=== PATIENT | male | born 1945 | race Caucasian/White ===

== ENCOUNTER 2016-12-24 22:09 | Emergency (ER) | payer MEDICARE ==
[2016-12-24] MEDS ORDERED: ONDANSETRON 4 MG/2 ML VIAL IVP STA (22:53)
--- NOTE | 2016-12-24 23:26 | ED ---
Nausea/Vomiting/Diarrhea HPI - General Chief complaint: Nausea/Vomiting/Diarrhea Stated complaint: Flu Time Seen by Provider: 12/24/16 22:53 Source: patient Mode of arrival: ambulatory Limitations: no limitations - History of Present Illness Initial comments: Patient 71-year-old man with vomiting going on for about 30 hours, he has had or 5 episodes of vomiting the last had some coffee-ground material. Patient also had loose bowel movement he is describing as diarrhea, without seeing any blood or tarry stools. MD complaint: nausea, vomiting, diarrhea Onset/Timin -: hour(s) Description of Vomiting: watery Description of Diarrhea: water Associated Abdominal Pain: No Improves with: none Worsens with: none Associated Symptoms: denies other symptoms - Related Data Home Medications Medication Instructions Recorded Confirmed Aspirin 325 mg PO QID PRN 12/24/16 12/24/16 Previous Rx's Medication Instructions Recorded Ondansetron Odt [Zofran ODT] 4 mg PO Q8HR PRN #10 tab 12/25/16 Allergies Allergy/AdvReac Type Severity Reaction Status Date / Time No Known Allergies Allergy Verified 12/24/16 22:50 Review of Systems ROS Statement: Those systems with pertinent positive or pertinent negative responses have been documented in the HPI. ROS Other: All systems not noted in ROS Statement are negative. Constitutional: Denies: fever, chills Respiratory: Denies: cough, dyspnea Cardiovascular: Denies: chest pain, palpitations Gastrointestinal: Reports: nausea, vomiting, diarrhea. Denies: abdominal pain, hematemesis, melena, hematochezia Genitourinary: Denies: dysuria, hematuria Musculoskeletal: Denies: back pain Skin: Denies: rash Neurological: Denies: headache, weakness, numbness Past Medical History Past Medical History: Hypertension History of Any Multi-Drug Resistant Organisms: None Reported Past Surgical History: No Surgical Hx Reported Past Psychological History: No Psychological Hx Reported Smoking Status: Never smoker Past Alcohol Use History: None Reported Past Drug Use History: None Reported General Exam Limitations: no limitations General appearance: alert, in no apparent distress Head exam: Present: atraumatic, normocephalic Eye exam: Present: normal appearance. Absent: scleral icterus, conjunctival injection ENT exam: Present: normal oropharynx Respiratory exam: Present: normal lung sounds bilaterally. Absent: respiratory distress, wheezes, rales, rhonchi, stridor Cardiovascular Exam: Present: regular rate, normal rhythm, normal heart sounds. Absent: systolic murmur, diastolic murmur, rubs, gallop GI/Abdominal exam: Present: soft, normal bowel sounds. Absent: distended, tenderness, guarding, rebound, rigid, mass, pulsatile mass, hernia Extremities exam: Present: normal inspection, normal capillary refill. Absent: pedal edema, calf tenderness Back exam: Absent: CVA tenderness (R), CVA tenderness (L) Neurological exam: Present: alert Skin exam: Present: warm, dry, intact, normal color. Absent: rash, cyanosis, diaphoretic, erythema, petechiae, pallor, mottled Course Vital Signs 12/24/16 12/25/16 22:30 00:24 Temperature 98.6 F 98.9 F Pulse Rate 110 H 88 Respiratory 18 16 Rate Blood Pressure 138/96 126/75 O2 Sat by Pulse 95 99 Oximetry Medical Decision Making - Lab Data Result diagrams: 12/24/16 23:11 12/24/16 23:11 Lab Results 12/24/16 12/24/16 12/24/16 Range/Units 23:11 23:11 23:11 WBC 9.0 (3.8-10.6) k/uL RBC 4.57 (4.30-5.90) m/uL Hgb 14.1 (13.0-17.5) gm/dL Hct 42.8 (39.0-53.0) % MCV 93.6 (80.0-100.0) fL MCH 30.8 (25.0-35.0) pg MCHC 32.9 (31.0-37.0) g/dL RDW 12.2 (11.5-15.5) % Plt Count 177 (150-450) k/uL Neutrophils % 86 % Lymphocytes % 6 % Monocytes % 6 % Eosinophils % 0 % Basophils % 0 % Neutrophils # 7.7 (1.3-7.7) k/uL Lymphocytes # 0.5 L (1.0-4.8) k/uL Monocytes # 0.5 (0-1.0) k/uL Eosinophils # 0.0 (0-0.7) k/uL Basophils # 0.0 (0-0.2) k/uL Sodium 139 (137-145) mmol/L Potassium 4.0 (3.5-5.1) mmol/L Chloride 101 (98-107) mmol/L Carbon Dioxide 26 (22-30) mmol/L Anion Gap 12 mmol/L BUN 26 H (9-20) mg/dL Creatinine 0.90 (0.66-1.25) mg/dL Est GFR (MDRD) Af Amer >60 (>60 ml/min/1.73 sqM) Est GFR (MDRD) Non-Af >60 (>60 ml/min/1.73 sqM) Glucose 123 H (74-99) mg/dL Plasma Lactic Acid [place] 1.1 (0.7-2.0) mmol/L Calcium 8.8 (8.4-10.2) mg/dL Magnesium 1.7 (1.6-2.3) mg/dL Total Bilirubin 0.6 (0.2-1.3) mg/dL AST 24 (17-59) U/L ALT 26 (21-72) U/L Alkaline Phosphatase 69 (38-126) U/L Troponin I (0.000-0.034) ng/mL Total Protein 6.9 (6.3-8.2) g/dL Albumin 3.8 (3.5-5.0) g/dL Amylase 75 (30-110) U/L Lipase 103 (23-300) U/L Urine Color Urine Appearance (Clear) Urine pH (5.0-8.0) Ur Specific [place] (1.001-1.035) Urine Protein (Negative) Urine Glucose (UA) (Negative) Urine Ketones (Negative) Urine Blood (Negative) Urine Nitrate (Negative) Urine Bilirubin (Negative) Urine Urobilinogen (<2.0) mg/dL Ur Leukocyte Esterase (Negative) Urine RBC (0-5) /hpf Urine WBC (0-5) /hpf Ur Squamous Epith Cells (0-4) /hpf Urine Mucus (None) /hpf 12/24/16 12/24/16 Range/Units 23:11 23:27 WBC (3.8-10.6) k/uL RBC (4.30-5.90) m/uL Hgb (13.0-17.5) gm/dL Hct (39.0-53.0) % MCV (80.0-100.0) fL MCH (25.0-35.0) pg MCHC (31.0-37.0) g/dL RDW (11.5-15.5) % Plt Count (150-450) k/uL Neutrophils % % Lymphocytes % % Monocytes % % Eosinophils % % Basophils % % Neutrophils # (1.3-7.7) k/uL Lymphocytes # (1.0-4.8) k/uL Monocytes # (0-1.0) k/uL Eosinophils # (0-0.7) k/uL Basophils # (0-0.2) k/uL Sodium (137-145) mmol/L Potassium (3.5-5.1) mmol/L Chloride (98-107) mmol/L Carbon Dioxide (22-30) mmol/L Anion Gap mmol/L BUN (9-20) mg/dL Creatinine (0.66-1.25) mg/dL Est GFR (MDRD) Af Amer (>60 ml/min/1.73 sqM) Est GFR (MDRD) Non-Af (>60 ml/min/1.73 sqM) Glucose (74-99) mg/dL Plasma Lactic Acid [place] (0.7-2.0) mmol/L Calcium (8.4-10.2) mg/dL Magnesium (1.6-2.3) mg/dL Total Bilirubin (0.2-1.3) mg/dL AST (17-59) U/L ALT (21-72) U/L Alkaline Phosphatase (38-126) U/L Troponin I <0.012 (0.000-0.034) ng/mL Total Protein (6.3-8.2) g/dL Albumin (3.5-5.0) g/dL Amylase (30-110) U/L Lipase (23-300) U/L Urine Color Yellow Urine Appearance Clear (Clear) Urine pH 5.5 (5.0-8.0) Ur Specific [place] 1.026 (1.001-1.035) Urine Protein 1+ H (Negative) Urine Glucose (UA) Negative (Negative) Urine Ketones Negative (Negative) Urine Blood Negative (Negative) Urine Nitrate Negative (Negative) Urine Bilirubin Negative (Negative) Urine Urobilinogen <2.0 (<2.0) mg/dL Ur Leukocyte Esterase Negative (Negative) Urine RBC 1 (0-5) /hpf Urine WBC 1 (0-5) /hpf Ur Squamous Epith Cells <1 (0-4) /hpf Urine Mucus Few H (None) /hpf Disposition Clinical Impression: Gastroenteritis Disposition: HOME SELF-CARE Condition: Good Instructions: Gastroenteritis (ED) Prescriptions: Ondansetron Odt [Zofran ODT] 4 mg PO Q8HR PRN #10 tab PRN Reason: Nausea Referrals: Anna Spear MD [Primary Care Provider] - 1-2 days
[2016-12-24 23:33] LABS: Basophils % (A) 0 %; CHCM 33.2; Eosinophils % (A) 0 %; HCT 42.8 % (39.0-53.0); HDW 2.31; HGB 14.1 gm/dL (13.0-17.5); Luc # (Auto) 0.17; Luc % (Auto) 2; Lymphocytes # (A) 0.5 k/uL (1.0-4.8); Lymphocytes % (A) 6 %; MCH 30.8 pg (25.0-35.0); MCHC 32.9 g/dL (31.0-37.0); MCV 93.6 fL (80.0-100.0); Mean Platelet Volume 8.6; Monocytes # (A) 0.5 k/uL (0-1.0); Monocytes % (A) 6 %; Neutrophils # (A) 7.7 k/uL (1.3-7.7); Neutrophils % (A) 86 %; RBC 4.57 m/uL (4.30-5.90); RDW 12.2 % (11.5-15.5); WBC (Perox) 8.39
[2016-12-24 23:41] LABS: ALT 26 U/L (21-72); AST 24 U/L (17-59); Alkaline Phosphatase 69 U/L (38-126); Amylase 75 U/L (30-110); Anion Gap 12 mmol/L; Blood Urea Nitrogen 26 mg/dL (9-20); Calcium 8.8 mg/dL (8.4-10.2); Carbon Dioxide 26 mmol/L (22-30); Chloride 101 mmol/L (98-107); Glucose 123 mg/dL (74-99); Magnesium 1.7 mg/dL (1.6-2.3); Non-African American GFR(MDRD) >60 (>60 ml/min/1.73 sqM); Sodium 139 mmol/L (137-145); Total Bilirubin 0.6 mg/dL (0.2-1.3); Total Protein 6.9 g/dL (6.3-8.2)
[2016-12-24 23:49] LABS: Appearance,Urine Clear (Clear); Bilirubin,Urine Negative (Negative); Glucose,Urine (UA) Negative (Negative); Ketones,Urine Negative (Negative); Leukocyte Esterase,Urine Negative (Negative); Mucus,Urine Few /hpf; Nitrite,Urine Negative (Negative); PH, Urine 5.5 (5.0-8.0); Particle Count 5420; Protein,Urine 1+ (Negative); RBC,Urine 1 /hpf (0-5); Specific Gravity,Urine 1.026 (1.001-1.035); Squamous Epithelial Cell,Urine <1 /hpf (0-4); UA Billing (MACRO vs. MICRO) MICRO; Urobilinogen,Urine <2.0 mg/dL (<2.0); WBC,Urine 1 /hpf (0-5)
[2016-12-25 00:35] VITALS: BP 126/75; PULSE 88; RESP 16; TEMP 98.9
== END 2016-12-25 00:35 | disposition home or self-care (01) ==
LOC: EC 22:09
DX: K52.9 Noninfective gastroenteritis and colitis, unspecified (principal)
CPT/HCPCS: 99284; 96374; 36415; 80053; 82150; 83605; 83690; 83735; 84484; 85025; 81001; J2405

== ENCOUNTER 2017-01-12 17:45 | Emergency (ER) | payer MEDICARE ==
[2017-01-12 18:49] VITALS: RESP 18
[2017-01-12] MEDS ORDERED: MECLIZINE 12.5 MG TAB PO STA (18:57)
[2017-01-12] MEDS ORDERED: ONDANSETRON 4 MG/2 ML VIAL IVP STA (18:57)
[2017-01-12] MEDS ORDERED: SODIUM CHLORIDE 0.9% 1,000 ML IV STA (18:57)
[2017-01-12 19:12] LABS: Basophils % (A) 0 %; CH 30.2; CHCM 32.2; Eosinophils # (A) 0.1 k/uL (0-0.7); Eosinophils % (A) 1 %; HCT 45.8 % (39.0-53.0); HDW 2.44; HGB 14.4 gm/dL (13.0-17.5); Luc # (Auto) 0.25; Luc % (Auto) 3; Lymphocytes # (A) 1.4 k/uL (1.0-4.8); Lymphocytes % (A) 18 %; MCH 29.5 pg (25.0-35.0); MCHC 31.4 g/dL (31.0-37.0); Mean Platelet Volume 8.3; Monocytes # (A) 0.4 k/uL (0-1.0); Monocytes % (A) 5 %; Neutrophils # (A) 5.7 k/uL (1.3-7.7); Neutrophils % (A) 73 %; RBC 4.87 m/uL (4.30-5.90); RDW 12.1 % (11.5-15.5); WBC 7.8 k/uL (3.8-10.6); WBC (Perox) 8.05
[2017-01-12 19:14] LABS: Appearance,Urine Clear (Clear); Bilirubin,Urine Negative (Negative); Glucose,Urine (UA) Negative (Negative); Ketones,Urine Negative (Negative); Leukocyte Esterase,Urine Negative (Negative); Nitrite,Urine Negative (Negative); PH, Urine 6.5 (5.0-8.0); Protein,Urine Negative (Negative); Specific Gravity,Urine 1.002 (1.001-1.035); UA Billing (MACRO vs. MICRO) CHEM; Urobilinogen,Urine <2.0 mg/dL (<2.0)
[2017-01-12 19:29] LABS: ALT 41 U/L (21-72); AST 34 U/L (17-59); Alkaline Phosphatase 86 U/L (38-126); Anion Gap 12 mmol/L; Blood Urea Nitrogen 17 mg/dL (9-20); Calcium 9.7 mg/dL (8.4-10.2); Carbon Dioxide 27 mmol/L (22-30); Chloride 105 mmol/L (98-107); Glucose 97 mg/dL (74-99); Non-African American GFR(MDRD) >60 (>60 ml/min/1.73 sqM); Potassium 4.2 mmol/L (3.5-5.1); Sodium 144 mmol/L (137-145); Total Bilirubin 0.6 mg/dL (0.2-1.3); Total Protein 7.8 g/dL (6.3-8.2)
--- NOTE | 2017-01-12 19:47 | XR ---
EXAMINATION TYPE: XR chest 2V DATE OF EXAM: 01/12/2017 7:39 PM COMPARISON: NONE HISTORY: Dizziness per patient, possible pneumonia? TECHNIQUE: Frontal and lateral views of the chest are obtained. FINDINGS: There is chronic parenchymal change without suspicious focal air space opacity, pleural ef fusion, or pneumothorax seen bilaterally. The cardiac silhouette size is upper limits of normal. T he osseous structures are demineralized. IMPRESSION: Chronic parenchymal changes without suspicious acute pulmonary process.
--- NOTE | 2017-01-12 21:29 | CT ---
EXAMINATION TYPE: CT brain wo con DATE OF EXAM: 01/12/2017 9:15 PM HISTORY: Dizziness and weakness. CT DLP: 1177.00 mGycm. Automated Exposure Control for Dose Reduction was Utilized. TECHNIQUE: CT scan of the head is performed without contrast. COMPARISON: None. FINDINGS: There is no acute intracranial hemorrhage or midline shift identified. There is diffuse v entricular and sulcal prominence consistent with diffuse age-related cerebral atrophy. Left globe pro sthesis or cortical buckle is noted. Right globe is intact. Visualized paranasal sinuses are clear. IMPRESSION: No acute intracranial hemorrhage or midline shift. There is mild to moderate diffuse ag e-related cerebral atrophy noted.
--- NOTE | 2017-01-12 22:28 | ED ---
Dizziness HPI - General Chief Complaint: Dizziness Stated Complaint: DIZZINESS Time Seen by Provider: 01/12/17 18:20 Source: patient Mode of arrival: wheelchair Limitations: no limitations - History of Present Illness Initial Comments: Episode of dizziness about 3 [place], he was lightheaded room was spinning and he felt palpitation he denies any chest pain no shortness of breath no frequency urgency dysuria no blurred vision no weakness of upper or lower extremities and now right now her symptoms have resolved totally - Related Data Home Medications Medication Instructions Recorded Confirmed Aspirin EC [Ecotrin Low Dose] 81 - 162 mg PO DAILY PRN 01/12/17 01/12/17 Atenolol 25 mg PO DAILY 01/12/17 01/12/17 Edta(Calcium Disodium Ethylene 1 tab PO BID 01/12/17 01/12/17 Diamine Tetra-Acetic Acid Dihydrate) Irbesartan [Avapro] 150 mg PO DAILY 01/12/17 01/12/17 Previous Rx's Medication Instructions Recorded Meclizine [Antivert] 12.5 mg PO QID #15 tablet 01/12/17 Allergies Allergy/AdvReac Type Severity Reaction Status Date / Time No Known Allergies Allergy Verified 01/12/17 18:37 Review of Systems ROS Statement: Those systems with pertinent positive or pertinent negative responses have been documented in the HPI. ROS Other: All systems not noted in ROS Statement are negative. Past Medical History Past Medical History: Hypertension History of Any Multi-Drug Resistant Organisms: None Reported Past Surgical History: No Surgical Hx Reported Past Psychological History: No Psychological Hx Reported Smoking Status: Never smoker Past Alcohol Use History: None Reported Past Drug Use History: None Reported General Exam - General Exam Comments Initial Comments: General: The patient is awake and alert, in no distress, and does not appear acutely ill. Skin: Skin is warm and dry and no rashes or lesions are noted. Eye: Pupils are equal, round and reactive to light, extra-ocular movements are intact; there is normal conjunctiva bilaterally. Ears, nose, mouth and throat: There are moist mucous membranes and no oral lesions. Neck: The neck is supple, there is no tenderness or JVD. Cardiovascular: There is a regular rate and rhythm. No murmur, rub or gallop is appreciated. Respiratory: To auscultation bilateral, no wheezing no rhonchi no distress respiratory portillo noticed Gastrointestinal: Soft, non-distended, non-tender abdomen without masses or organomegaly noted. There is no rebound or guarding present. Bowel sounds are unremarkable. Back: There is no tenderness to palpation in the midline. There is no obvious deformity. Musculoskeletal: Noticed some dependent edema around the ankles, no signs of any DVT no signs of any cellulitis or bruising noticed Neurological: CN II-XII intact, Cranial nerves III through XII are intact. There are no obvious motor or sensory deficits. Coordination appears grossly intact. Speech is normal. Psychiatric: Cooperative, appropriate mood & affect, normal judgment. Limitations: no limitations Course Vital Signs 01/12/17 01/12/17 01/12/17 18:05 18:48 19:45 Temperature 98.0 F Pulse Rate 98 94 86 Respiratory 16 18 18 Rate Blood Pressure 158/68 143/67 133/60 O2 Sat by Pulse 98 100 98 Oximetry 01/12/17 01/12/17 20:45 21:53 Temperature 99.7 F H Pulse Rate 90 99 Respiratory 18 18 Rate Blood Pressure 135/63 135/64 O2 Sat by Pulse 99 99 Oximetry General reassessed a few times during his stay in the ER, his CBC, CMP, UA, EKG , head CT, chest x-ray are absolutely normal in he is feeling great, he was reassured and advised to follow-up with Dr. Durand will return to the ER if symptoms get worse EKG Findings - EKG Comments: EKG Findings:: Normal sinus rhythm ventricular rate is 100 MO interval is 122 QRS duration is 88 QT/QTc is 366/464 review of this EKG does not reveal any ST elevation or ST depression Medical Decision Making - Lab Data Result diagrams: 01/12/17 19:04 01/12/17 19:04 Lab Results 01/12/17 01/12/17 01/12/17 Range/Units 19:04 19:04 19:04 WBC 7.8 (3.8-10.6) k/uL RBC 4.87 (4.30-5.90) m/uL Hgb 14.4 (13.0-17.5) gm/dL Hct 45.8 (39.0-53.0) % MCV 94.0 (80.0-100.0) fL MCH 29.5 (25.0-35.0) pg MCHC 31.4 (31.0-37.0) g/dL RDW 12.1 (11.5-15.5) % Plt Count 228 (150-450) k/uL Neutrophils % 73 % Lymphocytes % 18 % Monocytes % 5 % Eosinophils % 1 % Basophils % 0 % Neutrophils # 5.7 (1.3-7.7) k/uL Lymphocytes # 1.4 (1.0-4.8) k/uL Monocytes # 0.4 (0-1.0) k/uL Eosinophils # 0.1 (0-0.7) k/uL Basophils # 0.0 (0-0.2) k/uL Sodium 144 (137-145) mmol/L Potassium 4.2 (3.5-5.1) mmol/L Chloride 105 (98-107) mmol/L Carbon Dioxide 27 (22-30) mmol/L Anion Gap 12 mmol/L BUN 17 (9-20) mg/dL Creatinine 0.93 (0.66-1.25) mg/dL Est GFR (MDRD) Af Amer >60 (>60 ml/min/1.73 sqM) Est GFR (MDRD) Non-Af >60 (>60 ml/min/1.73 sqM) Glucose 97 (74-99) mg/dL Calcium 9.7 (8.4-10.2) mg/dL Total Bilirubin 0.6 (0.2-1.3) mg/dL AST 34 (17-59) U/L ALT 41 (21-72) U/L Alkaline Phosphatase 86 (38-126) U/L Troponin I <0.012 (0.000-0.034) ng/mL Total Protein 7.8 (6.3-8.2) g/dL Albumin 4.4 (3.5-5.0) g/dL Urine Color Urine Appearance (Clear) Urine pH (5.0-8.0) Ur Specific [place] (1.001-1.035) Urine Protein (Negative) Urine Glucose (UA) (Negative) Urine Ketones (Negative) Urine Blood (Negative) Urine Nitrate (Negative) Urine Bilirubin (Negative) Urine Urobilinogen (<2.0) mg/dL Ur Leukocyte Esterase (Negative) 01/12/17 Range/Units 19:04 WBC (3.8-10.6) k/uL RBC (4.30-5.90) m/uL Hgb (13.0-17.5) gm/dL Hct (39.0-53.0) % MCV (80.0-100.0) fL MCH (25.0-35.0) pg MCHC (31.0-37.0) g/dL RDW (11.5-15.5) % Plt Count (150-450) k/uL Neutrophils % % Lymphocytes % % Monocytes % % Eosinophils % % Basophils % % Neutrophils # (1.3-7.7) k/uL Lymphocytes # (1.0-4.8) k/uL Monocytes # (0-1.0) k/uL Eosinophils # (0-0.7) k/uL Basophils # (0-0.2) k/uL Sodium (137-145) mmol/L Potassium (3.5-5.1) mmol/L Chloride (98-107) mmol/L Carbon Dioxide (22-30) mmol/L Anion Gap mmol/L BUN (9-20) mg/dL Creatinine (0.66-1.25) mg/dL Est GFR (MDRD) Af Amer (>60 ml/min/1.73 sqM) Est GFR (MDRD) Non-Af (>60 ml/min/1.73 sqM) Glucose (74-99) mg/dL Calcium (8.4-10.2) mg/dL Total Bilirubin (0.2-1.3) mg/dL AST (17-59) U/L ALT (21-72) U/L Alkaline Phosphatase (38-126) U/L Troponin I (0.000-0.034) ng/mL Total Protein (6.3-8.2) g/dL Albumin (3.5-5.0) g/dL Urine Color Colorless Urine Appearance Clear (Clear) Urine pH 6.5 (5.0-8.0) Ur Specific [place] 1.002 (1.001-1.035) Urine Protein Negative (Negative) Urine Glucose (UA) Negative (Negative) Urine Ketones Negative (Negative) Urine Blood Negative (Negative) Urine Nitrate Negative (Negative) Urine Bilirubin Negative (Negative) Urine Urobilinogen <2.0 (<2.0) mg/dL Ur Leukocyte Esterase Negative (Negative) Disposition Clinical Impression: Dizziness, Light headed Disposition: HOME SELF-CARE Condition: Good Instructions: Dizziness (ED) Prescriptions: Meclizine [Antivert] 12.5 mg PO QID #15 tablet
[2017-01-12 22:50] VITALS: BP 133/63; PULSE 84
[2017-01-12 22:52] VITALS: TEMP 98
== END 2017-01-12 22:51 | disposition home or self-care (01) ==
LOC: EC 17:45
DX: R42 Dizziness and giddiness (principal); R60.0 Localized edema; R00.2 Palpitations; I10 Essential (primary) hypertension; Z79.899 Other long term (current) drug therapy
CPT/HCPCS: 36415; 70450; 71020; 80053; 81003; 84484; 85025; 93005; 99284

== ENCOUNTER 2017-08-02 20:39 | Emergency (ER) | payer MEDICARE ==
[2017-08-02] MEDS ORDERED: SODIUM CHLORIDE 0.9% 500 ML IV STA (21:34)
[2017-08-02] MEDS ORDERED: SODIUM CHLORIDE 0.9% 1,000 ML IV STA (21:34)
[2017-08-02] MEDS ORDERED: MECLIZINE 12.5 MG TAB PO STA (21:34)
[2017-08-02 22:02] LABS: Basophils % (A) 0 %; CH 30.5; CHCM 31.5; Eosinophils # (A) 0.1 k/uL (0-0.7); Eosinophils % (A) 1 %; HCT 46.1 % (39.0-53.0); HDW 2.15; HGB 15.4 gm/dL (13.0-17.5); Luc # (Auto) 0.24; Luc % (Auto) 3; Lymphocytes # (A) 1.9 k/uL (1.0-4.8); Lymphocytes % (A) 21 %; MCH 32.3 pg (25.0-35.0); MCHC 33.3 g/dL (31.0-37.0); MCV 97.2 fL (80.0-100.0); Mean Platelet Volume 8.1; Monocytes # (A) 0.6 k/uL (0-1.0); Monocytes % (A) 6 %; Neutrophils # (A) 6.5 k/uL (1.3-7.7); Neutrophils % (A) 69 %; RBC 4.75 m/uL (4.30-5.90); RDW 11.9 % (11.5-15.5); WBC 9.4 k/uL (3.8-10.6); WBC (Perox) 9.17
[2017-08-02 22:11] LABS: ALT 34 U/L (21-72); AST 18 U/L (17-59); Alkaline Phosphatase 82 U/L (38-126); Anion Gap 9 mmol/L; Blood Urea Nitrogen 19 mg/dL (9-20); Calcium 9.7 mg/dL (8.4-10.2); Carbon Dioxide 27 mmol/L (22-30); Chloride 104 mmol/L (98-107); Glucose 95 mg/dL (74-99); INR 1.1 (<1.2); Non-African American GFR(MDRD) >60 (>60 ml/min/1.73 sqM); Potassium 4.7 mmol/L (3.5-5.1); Prothrombin Time 11.3 sec (9.0-12.0); Sodium 140 mmol/L (137-145); Total Bilirubin 0.3 mg/dL (0.2-1.3); Total Protein 6.9 g/dL (6.3-8.2)
[2017-08-02 22:54] LABS: Appearance,Urine Clear (Clear); Bilirubin,Urine Negative (Negative); Glucose,Urine (UA) Negative (Negative); Ketones,Urine Negative (Negative); Leukocyte Esterase,Urine Negative (Negative); Nitrite,Urine Negative (Negative); Protein,Urine Negative (Negative); Specific Gravity,Urine 1.006 (1.001-1.035); UA Billing (MACRO vs. MICRO) CHEM; Urobilinogen,Urine <2.0 mg/dL (<2.0)
--- NOTE | 2017-08-02 23:19 | CT ---
EXAM: CT Head Without Intravenous Contrast CLINICAL HISTORY: Reason: Pain TECHNIQUE: Axial computed tomography images of the head/brain without intravenous contrast. CTDI is 57.40 mGy and DLP is 1080.50 mGy-cm. This CT exam was performed using one or more of the following dose reduction techniques: automated exposure control, adjustment of the mA and/or kV according to patient size, and/or use of iterative reconstruction technique. COMPARISON: 01/12/17 CT FINDINGS: Brain: No ICH, mass effect or edema. No evidence of acute cortical stroke. Periventricular small vessel ischemic change. No midline shift or hydrocephalus. Diffuse parenchymal atrophy. No hemorrhage. Ventricles: See above. Bones/joints: Unremarkable. No acute fracture. Soft tissues: Unremarkable. Sinuses: Unremarkable as visualized. No acute sinusitis. Mastoid air cells: Visualized sinuses and mastoid air cells are clear. IMPRESSION: No acute intracranial pathology. Chronic ischemic small vessel white matter disease and diffuse involutional changes.
--- NOTE | 2017-08-02 23:48 | ED ---
Dizziness HPI - General Chief Complaint: Dizziness Stated Complaint: Lightheaded when laying down Time Seen by Provider: 08/02/17 21:22 Source: patient Mode of arrival: ambulatory Limitations: no limitations - History of Present Illness Initial Comments: Resented with dizziness and lightheadedness, started about 4 PM also concerned about a rash on the left side of his neck and left side of the neck has rest for a few days ago, it has gone for 2 and he had a mild fever when he came in. Dizziness get worse when he moves around. No headaches no blurred vision no neck stiffness no chest pain or shortness of breath or abdominal pain no frequency urgency dysuria - Related Data Home Medications Medication Instructions Recorded Confirmed Aspirin EC [Ecotrin Low Dose] 80 mg PO DAILY 01/12/17 08/02/17 Atenolol 25 mg PO DAILY 01/12/17 08/02/17 Irbesartan [Avapro] 150 mg PO DAILY 01/12/17 08/02/17 Meclizine [Antivert] 12.5 mg PO QID PRN 08/02/17 08/02/17 Naproxen Sodium [Aleve] 440 mg PO BID PRN 08/02/17 08/02/17 Previous Rx's Medication Instructions Recorded Amoxic-Pot Clav 875-125Mg 1 tab PO Q12HR #20 tablet 08/03/17 [Augmentin 875-125] Allergies Allergy/AdvReac Type Severity Reaction Status Date / Time No Known Allergies Allergy Verified 08/02/17 21:42 Review of Systems ROS Statement: Those systems with pertinent positive or pertinent negative responses have been documented in the HPI. ROS Other: All systems not noted in ROS Statement are negative. Past Medical History Past Medical History: Hypertension History of Any Multi-Drug Resistant Organisms: None Reported Past Surgical History: No Surgical Hx Reported Past Psychological History: No Psychological Hx Reported Smoking Status: Never smoker Past Alcohol Use History: None Reported Past Drug Use History: None Reported General Exam - General Exam Comments Initial Comments: General: The patient is awake and alert, in no distress, and does not appear acutely ill. Skin: Skin is warm and dry and no rashes or lesions are noted. The left side of the neck noticed down area about 4 cm diameter looks like localized infection , etc. erythematous, is warm is tender Eye: Pupils are equal, round and reactive to light, extra-ocular movements are intact; there is normal conjunctiva bilaterally. Ears, nose, mouth and throat: There are moist mucous membranes and no oral lesions. Neck: The neck is supple, there is no tenderness or JVD. Cardiovascular: There is a regular rate and rhythm. No murmur, rub or gallop is appreciated. Respiratory: To auscultation bilateral, no wheezing no rhonchi no distress respiratory portillo noticed Gastrointestinal: Soft, non-distended, non-tender abdomen without masses or organomegaly noted. There is no rebound or guarding present. Bowel sounds are unremarkable. Back: There is no tenderness to palpation in the midline. There is no obvious deformity. Musculoskeletal: Normal ROM, no tenderness, There is no pedal edema. There is no calf tenderness or swelling. No cords were appreciated. Neurological: CN II-XII intact, Cranial nerves III through XII are intact. There are no obvious motor or sensory deficits. Coordination appears grossly intact. Speech is normal. Psychiatric: Cooperative, appropriate mood & affect, normal judgment. 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[employer] ] Respiratory 18 16 Rate Blood Pressure 161/68 137/67 Blood Pressure 133/59 [Left Arm] O2 Sat by Pulse 100 98 Oximetry 08/02/17 23:54 Temperature Pulse Rate Pulse Rate [ 89 Sales Consultant Residential Manager ] Respiratory 16 Rate Blood Pressure Blood Pressure 163/65 [Left Arm] O2 Sat by Pulse 98 Oximetry Since labs and imaging were reviewed and discussed with the patient, CBC, INR, troponin, compressive metabolic panel and head CT were normal he be gone home on Antivert and I'll antibiotics given Demerol 1 Augmentin 875/125 twice daily for next 10 days EKG Findings - EKG Comments: EKG Findings:: EKG is normal sinus rhythm ventricular rate is 89 MS interval is 118, respiratory duration is 86 QT/QTc is 362/440 review of this EKG does not reveal any ST elevation or ST depression Medical Decision Making - Lab Data Result diagrams: 08/02/17 21:15 08/02/17 21:15 Lab Results 08/02/17 08/02/17 08/02/17 Range/Units 21:15 21:15 21:15 WBC 9.4 (3.8-10.6) k/uL RBC 4.75 (4.30-5.90) m/uL Hgb 15.4 (13.0-17.5) gm/dL Hct 46.1 (39.0-53.0) % MCV 97.2 (80.0-100.0) fL MCH 32.3 (25.0-35.0) pg MCHC 33.3 (31.0-37.0) g/dL RDW 11.9 (11.5-15.5) % Plt Count 217 (150-450) k/uL Neutrophils % 69 % Lymphocytes % 21 % Monocytes % 6 % Eosinophils % 1 % Basophils % 0 % Neutrophils # 6.5 (1.3-7.7) k/uL Lymphocytes # 1.9 (1.0-4.8) k/uL Monocytes # 0.6 (0-1.0) k/uL Eosinophils # 0.1 (0-0.7) k/uL Basophils # 0.0 (0-0.2) k/uL PT (9.0-12.0) sec INR (<1.2) Sodium 140 (137-145) mmol/L Potassium 4.7 (3.5-5.1) mmol/L Chloride 104 (98-107) mmol/L Carbon Dioxide 27 (22-30) mmol/L Anion Gap 9 mmol/L BUN 19 (9-20) mg/dL Creatinine 1.00 (0.66-1.25) mg/dL Est GFR (MDRD) Af Amer >60 (>60 ml/min/1.73 sqM) Est GFR (MDRD) Non-Af >60 (>60 ml/min/1.73 sqM) Glucose 95 (74-99) mg/dL Plasma Lactic Acid [place] 1.3 (0.7-2.0) mmol/L Calcium 9.7 (8.4-10.2) mg/dL Total Bilirubin 0.3 (0.2-1.3) mg/dL AST 18 (17-59) U/L ALT 34 (21-72) U/L Alkaline Phosphatase 82 (38-126) U/L Troponin I (0.000-0.034) ng/mL Total Protein 6.9 (6.3-8.2) g/dL Albumin 3.9 (3.5-5.0) g/dL Urine Color Urine Appearance (Clear) Urine pH (5.0-8.0) Ur Specific [place] (1.001-1.035) Urine Protein (Negative) Urine Glucose (UA) (Negative) Urine Ketones (Negative) Urine Blood (Negative) Urine Nitrite (Negative) Urine Bilirubin (Negative) Urine Urobilinogen (<2.0) mg/dL Ur Leukocyte Esterase (Negative) 08/02/17 08/02/17 08/02/17 Range/Units 21:15 21:15 22:43 WBC (3.8-10.6) k/uL RBC (4.30-5.90) m/uL Hgb (13.0-17.5) gm/dL Hct (39.0-53.0) % MCV (80.0-100.0) fL MCH (25.0-35.0) pg MCHC (31.0-37.0) g/dL RDW (11.5-15.5) % Plt Count (150-450) k/uL Neutrophils % % Lymphocytes % % Monocytes % % Eosinophils % % Basophils % % Neutrophils # (1.3-7.7) k/uL Lymphocytes # (1.0-4.8) k/uL Monocytes # (0-1.0) k/uL Eosinophils # (0-0.7) k/uL Basophils # (0-0.2) k/uL PT 11.3 (9.0-12.0) sec INR 1.1 (<1.2) Sodium (137-145) mmol/L Potassium (3.5-5.1) mmol/L Chloride (98-107) mmol/L Carbon Dioxide (22-30) mmol/L Anion Gap mmol/L BUN (9-20) mg/dL Creatinine (0.66-1.25) mg/dL Est GFR (MDRD) Af Amer (>60 ml/min/1.73 sqM) Est GFR (MDRD) Non-Af (>60 ml/min/1.73 sqM) Glucose (74-99) mg/dL Plasma Lactic Acid [place] (0.7-2.0) mmol/L Calcium (8.4-10.2) mg/dL Total Bilirubin (0.2-1.3) mg/dL AST (17-59) U/L ALT (21-72) U/L Alkaline Phosphatase (38-126) U/L Troponin I <0.012 (0.000-0.034) ng/mL Total Protein (6.3-8.2) g/dL Albumin (3.5-5.0) g/dL Urine Color Light Yellow Urine Appearance Clear (Clear) Urine pH 6.0 (5.0-8.0) Ur Specific [place] 1.006 (1.001-1.035) Urine Protein Negative (Negative) Urine Glucose (UA) Negative (Negative) Urine Ketones Negative (Negative) Urine Blood Negative (Negative) Urine Nitrite Negative (Negative) Urine Bilirubin Negative (Negative) Urine Urobilinogen <2.0 (<2.0) mg/dL Ur Leukocyte Esterase Negative (Negative) Disposition Clinical Impression: Dizziness, Cellulitis Disposition: HOME SELF-CARE Condition: Good Instructions: Dizziness (ED) Additional Instructions: Skin has antevert at home Prescriptions: Amoxic-Pot Clav 875-125Mg [Augmentin 875-125] 1 tab PO Q12HR #20 tablet Referrals: Anna Spear MD [Primary Care Provider] - 1-2 days
[2017-08-03 00:46] VITALS: BP 134/59; PULSE 83; RESP 18; TEMP 98.1
== END 2017-08-03 00:45 | disposition home or self-care (01) ==
LOC: EC 20:39
DX: L03.90 Cellulitis, unspecified (principal); R42 Dizziness and giddiness; I10 Essential (primary) hypertension; Z79.82 Long term (current) use of aspirin; Z79.899 Other long term (current) drug therapy
CPT/HCPCS: 36415; 70450; 80053; 81003; 83605; 84484; 85025; 85610; 93005; 96360; 96361; 99284

== ENCOUNTER 2023-09-09 13:20 | Inpatient (IN) | payer MEDICARE, OTHER ==
--- NOTE | 2023-09-09 14:00 | ED ---
General Adult HPI - General Source: RN notes reviewed <Lucia Woods - Last Filed: 09/09/23 13:59> - General Source: patient, family, RN notes reviewed Limitations: no limitations <Moises Merchant - Last Filed: 09/09/23 15:52> - General Chief complaint: Nausea/Vomiting/Diarrhea Stated complaint: Nausea Time Seen by Provider: 09/09/23 13:59 - History of Present Illness Initial comments: 78 male with no significant past medical history presents the emergency department with a chief complaint of nausea. Patient reports feeling like he has to gag. Denies any episodes of vomiting. He does report feeling like every time he urinates he has to have a bowel movement. (Lucia Woods) Patient is a pleasant 78-year-old male presenting to the emergency Department with complaint of nausea. Symptoms have been going on around a week. Decreased oral intake. Patient denies vomiting. Patient does have urinary frequency which has been somewhat chronic for him, increased recently. Patient also has chronic diarrhea for years. Patient states he has been taking silver colloid for years. 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 No chest pain. (Moises Merchant) - Related Data Home Medications Medication Instructions Recorded Confirmed Aspirin EC [Ecotrin Low Dose] 81 mg PO DAILY 01/12/17 12/20/22 Loperamide [Imodium] 2 mg PO QID PRN 09/09/23 09/09/23 Losartan Potassium 100 mg PO DAILY 09/09/23 09/09/23 atenoloL [Tenormin] 50 mg PO DAILY 09/09/23 09/09/23 Allergies Allergy/AdvReac Type Severity Reaction Status Date / Time No Known Allergies Allergy Verified 09/09/23 15:42 Review of Systems ROS Other: All systems not noted in ROS Statement are negative. <Lucia Woods - Last Filed: 09/09/23 13:59> ROS Other: All systems not noted in ROS Statement are negative. Constitutional: Denies: fever Eyes: Denies: eye pain ENT: Reports: as per HPI. Denies: ear pain Respiratory: Denies: cough, dyspnea Cardiovascular: Denies: chest pain Endocrine: Denies: fatigue Gastrointestinal: Reports: nausea, diarrhea. Denies: abdominal pain, vomiting Genitourinary: Reports: urgency, frequency Musculoskeletal: Denies: back pain Skin: Denies: rash Neurological: Reports: weakness <MerchantMoises - Last Filed: 09/09/23 15:52> ROS Statement: Those systems with pertinent positive or pertinent negative responses have been documented in the HPI. Past Medical History Past Medical History: Hypertension History of Any Multi-Drug Resistant Organisms: None Reported Past Surgical History: No Surgical Hx Reported Past Psychological History: No Psychological Hx Reported Smoking Status: Never smoker Past Alcohol Use History: None Reported Past Drug Use History: None Reported <ChuckLucia - Last Filed: 09/09/23 13:59> General Exam <ChuckLucia - Last Filed: 09/09/23 13:59> Limitations: no limitations General appearance: alert, in no apparent distress, other (Blue/tabares discoloration to the skin) Head exam: Present: atraumatic Eye exam: Present: normal appearance ENT exam: Present: other (Ulcerative lesion right nares approximately 2 x 3 cm and irregular) Neck exam: Present: normal inspection Respiratory exam: Present: normal lung sounds bilaterally Cardiovascular Exam: Present: regular rate, normal rhythm GI/Abdominal exam: Present: soft. Absent: tenderness Extremities exam: Present: pedal edema. Absent: calf tenderness Neurological exam: Present: alert. Absent: motor sensory deficit Psychiatric exam: Present: normal affect, normal mood Skin exam: Present: normal color <MayurMoises - Last Filed: 09/09/23 15:52> - General Exam Comments Initial Comments: Visual Physical Exam Vital signs reviewed General: Well-appearing, nontoxic, no acute distress. Head: Normocephalic, atraumatic Eyes: PERRLA, EOMI ENT: Airway patent Chest: Nonlabored breathing Skin: No visual rash, normal skin tone Neuro: Alert and oriented 3 Musculoskeletal: No gross abnormalities (Lucia Woods) Course Vital Signs 09/09/23 13:56 Temperature 97.6 F Pulse Rate 82 Respiratory 20 Rate Blood Pressure 185/99 O2 Sat by Pulse 98 Oximetry EKG Findings - EKG Results: EKG: interpreted by ERMD (Nonspecific ST changes diffusely.), sinus rhythm, normal axis, normal QRS <MerchantMoises Hernandez Last Filed: 09/09/23 15:52> Medical Decision Making - Lab Data Result diagrams: 09/09/23 14:02 09/09/23 14:02 <Moises Merchant - Last Filed: 09/09/23 15:52> - Medical Decision Making EKG #2 also interviewed by myself shows sinus rhythm with rate of 74. [place] 135. QRS 73. QT 408. QTC or 35. Superior axis. Normal QRS. Nonspecific ST-T. Was pt. sent in by a medical professional or institution (, PA, SALVAGE ENGINEER, urgent care, hospital, or fdc...) When possible be specific @ -No Did you speak to anyone other than the patient for history (EMS, parent, family, police, friend...)? What history was obtained from this source @ -Son is present and helps provide history including patient unwilling to have treatment for his basal cell carcinoma of his nose Did you review nursing and triage notes (agree or disagree)? Why? @ -I reviewed and agree with nursing and triage notes Were old charts reviewed (outside hosp., previous admission, EMS record, old EKG, old radiological studies, urgent care reports/EKG's, fdc records)? Report findings @ -There is EKGs reviewed. Differential Diagnosis (chest pain, altered mental status, abdominal pain women, abdominal pain men, vaginal bleeding, weakness, fever, dyspnea, syncope, headache, dizziness, GI bleed, back pain, seizure, CVA, palpatations, mental health, musculoskeletal)? @ -Differential Weakness: Hypoglycemia, shock, sepsis, hyponatremia, anemia, infection, TN, ETOH, adverse medicine reaction, overdose, stroke, this is not meant to be an all-inclusive list. EKG interpreted by me (3pts min.). @ -As above X-rays interpreted by me (1pt min.). @ -None done CT interpreted by me (1pt min.). @ -None done U/S interpreted by me (1pt. min.). @ -None done What testing was considered but not performed or refused? (CT, X-rays, U/S, labs)? Why? @ -None What meds were considered but not given or refused? Why? @ -None Did you discuss the management of the patient with other professionals (professionals i.e. , PA, SALVAGE ENGINEER, lab, RT, psych nurse, social media marketing analyst, software installer, teacher, property utilization officer, family service caseworker)? Give summary @ -Frank was discussed with cardiology Dr. Abad who does recommend medical care and heparin cardiac-portillo. Case also discussed with nephrology Dr. Lopez, orders placed. Case also discussed with Dr. Vivas, who will admit, Dr. arana Was smoking cessation discussed for >3mins.? @ -No Was critical care preformed (if so, how long)? @ -33 minutes. Care time Were there social determinants of health that impacted care today? How? (Homelessness, low income, unemployed, alcoholism, drug addiction, transpo rtation, low edu. Level, literacy, decrease access to med. care, [facility], rehab)? @ -No Was there de-escalation of care discussed even if they declined (Discuss DNR or withdrawal of care, Hospice)? DNR status @ -No What co-morbidities impacted this encounter? (DM, HTN, Smoking, COPD, CAD, Cancer, CVA, ARF, Chemo, Hep., AIDS, mental health diagnosis, sleep apnea, morbid obesity)? @ -None Was patient admitted / discharged? Hospital course, mention meds given and route, prescriptions, significant lab abnormalities, going to OR and other pertinent info. @ -Patient and family are aware of results and plan. Patient will be admitted with consult for cardiology and nephrology. Several medications provided for hyperkalemia. Patient will receive IV fluids. Ultrasound and Stout catheter ordered. Patient will receive aspirin and Lipitor and heparin and further cardiac evaluation including echo. Admission orders written. Undiagnosed new problem with uncertain prognosis? @ -No Drug Therapy requiring intensive monitoring for toxicity (Heparin, Nitro, Insulin, Cardizem)? @ -No Were any procedures done? @ -No Diagnosis/symptom? @ -Acute kidney injury, hyperkalemia, elevated troponin, basal cell carcinoma of the nose, silver associated skin discoloration Acute, or Chronic, or Acute on Chronic? @ -Acute, acute, acute, chronic, chronic Uncomplicated (without systemic symptoms) or Complicated (systemic symptoms)? @ -default Side effects of treatment? @ -No Exacerbation, Progression, or Severe Exacerbation? @ -No Poses a threat to life or bodily function? How? (Chest pain, USA, TN, pneumonia, PE, COPD, DKA, ARF, appy, cholecystitis, CVA, Diverticulitis, Homicidal, Suicidal, threat to staff... and all critical care pts) @ -Potential of life threat based of severe renal failure and elevated troponin. (Moises Merchant) - Lab Data Lab Results 09/09/23 09/09/23 09/09/23 Range/Units 14:02 14:02 14:02 WBC 12.6 H (3.8-10.6) k/uL RBC 4.01 L (4.30-5.90) m/uL Hgb 12.5 L (13.0-17.5) gm/dL Hct 38.3 L (39.0-53.0) % MCV 95.6 (80.0-100.0) fL MCH 31.2 (25.0-35.0) pg MCHC 32.6 (31.0-37.0) g/dL RDW 12.0 (11.5-15.5) % Plt Count 302 (150-450) k/uL MPV 8.5 Neutrophils % 89 % Lymphocytes % 4 % Monocytes % 5 % Eosinophils % 1 % Basophils % 0 % Neutrophils # 11.1 H (1.3-7.7) k/uL Lymphocytes # 0.5 L (1.0-4.8) k/uL Monocytes # 0.7 (0-1.0) k/uL Eosinophils # 0.1 (0-0.7) k/uL Basophils # 0.0 (0-0.2) k/uL PT 12.5 (10.0-12.5) sec INR 1.2 H (<1.2) APTT 21.6 L (22.0-30.0) sec Sodium 140 (137-145) mmol/L Potassium 6.4 H* (3.5-5.1) mmol/L Chloride 99 (98-107) mmol/L Carbon Dioxide 17 L (22-30) mmol/L Anion Gap 24 mmol/L BUN 113 H* (9-20) mg/dL Creatinine 17.44 H* (0.66-1.25) mg/dL Est GFR (CKD-EPI)AfAm 3 (>60 ml/min/1.73 sqM) Est GFR (CKD-EPI)NonAf 2 (>60 ml/min/1.73 sqM) Glucose 113 H (74-99) mg/dL Calcium 8.9 (8.4-10.2) mg/dL Total Bilirubin 0.5 (0.2-1.3) mg/dL AST 78 H (17-59) U/L ALT 37 (4-49) U/L Alkaline Phosphatase 69 (38-126) U/L Troponin I (0.000-0.034) ng/mL Total Protein 7.2 (6.3-8.2) g/dL Albumin 4.0 (3.5-5.0) g/dL Urine Color Urine Appearance (Clear) Urine pH (5.0-8.0) Ur Specific [place] (1.001-1.035) Urine Protein (Negative) Urine Glucose (UA) (Negative) Urine Ketones (Negative) Urine Blood (Negative) Urine Nitrite (Negative) Urine Bilirubin (Negative) Urine Urobilinogen (<2.0) mg/dL Ur Leukocyte Esterase (Negative) Urine RBC (0-5) /hpf Urine WBC (0-5) /hpf Ur Squamous Epith Cells (0-4) /hpf Amorphous Sediment (None) /hpf Urine Mucus (None) /hpf Influenza Type A (PCR) (Not Detectd) Influenza Type B (PCR) (Not Detectd) RSV (PCR) (Not Detectd) SARS-CoV-2 (PCR) (Not Detectd) 09/09/23 09/09/23 09/09/23 Range/Units 14:02 14:02 14:27 WBC (3.8-10.6) k/uL RBC (4.30-5.90) m/uL Hgb (13.0-17.5) gm/dL Hct (39.0-53.0) % MCV (80.0-100.0) fL MCH (25.0-35.0) pg MCHC (31.0-37.0) g/dL RDW (11.5-15.5) % Plt Count (150-450) k/uL MPV Neutrophils % % Lymphocytes % % Monocytes % % Eosinophils % % Basophils % % Neutrophils # (1.3-7.7) k/uL Lymphocytes # (1.0-4.8) k/uL Monocytes # (0-1.0) k/uL Eosinophils # (0-0.7) k/uL Basophils # (0-0.2) k/uL PT (10.0-12.5) sec INR (<1.2) APTT (22.0-30.0) sec Sodium (137-145) mmol/L Potassium (3.5-5.1) mmol/L Chloride (98-107) mmol/L Carbon Dioxide (22-30) mmol/L Anion Gap mmol/L BUN (9-20) mg/dL Creatinine (0.66-1.25) mg/dL Est GFR (CKD-EPI)AfAm (>60 ml/min/1.73 sqM) Est GFR (CKD-EPI)NonAf (>60 ml/min/1.73 sqM) Glucose (74-99) mg/dL Calcium (8.4-10.2) mg/dL Total Bilirubin (0.2-1.3) mg/dL AST (17-59) U/L ALT (4-49) U/L Alkaline Phosphatase (38-126) U/L Troponin I 11.500 H* (0.000-0.034) ng/mL Total Protein (6.3-8.2) g/dL Albumin (3.5-5.0) g/dL Urine Color Colorless Urine Appearance Cloudy (Clear) Urine pH 7.0 (5.0-8.0) Ur Specific [place] 1.010 (1.001-1.035) Urine Protein Negative (Negative) Urine Glucose (UA) Negative (Negative) Urine Ketones Negative (Negative) Urine Blood Negative (Negative) Urine Nitrite Negative (Negative) Urine Bilirubin Negative (Negative) Urine Urobilinogen <2.0 (<2.0) mg/dL Ur Leukocyte Esterase Negative (Negative) Urine RBC 2 (0-5) /hpf Urine WBC 3 (0-5) /hpf Ur Squamous Epith Cells 1 (0-4) /hpf Amorphous Sediment Occasional H (None) /hpf Urine Mucus Rare H (None) /hpf Influenza Type A (PCR) Not Detected (Not Detectd) Influenza Type B (PCR) Not Detected (Not Detectd) RSV (PCR) Not Detected (Not Detectd) SARS-CoV-2 (PCR) Not Detected (Not Detectd) Critical Care Time Critical Care Time: Yes Total Critical Care Time: 33 <Moises Merchant - Last Filed: 09/09/23 15:52> Disposition <Lucia Woods - Last Filed: 09/09/23 13:59> Is patient prescribed a controlled substance at d/c from ED?: No Time of Disposition: 15:52 <Moises Merchant - Last Filed: 09/09/23 15:52> Clinical Impression: Acute renal failure (ARF) Disposition: ADMITTED IP TO THIS HOSP Condition: Serious Referrals: Anna Spear MD [Primary Care Provider] - 1-2 days
[2023-09-09 14:31] LABS: Basophils % (A) 0 %; Eosinophils # (A) 0.1 k/uL (0-0.7); Eosinophils % (A) 1 %; HCT 38.3 % (39.0-53.0); HGB 12.5 gm/dL (13.0-17.5); Lymphocytes # (A) 0.5 k/uL (1.0-4.8); Lymphocytes % (A) 4 %; MCH 31.2 pg (25.0-35.0); MCHC 32.6 g/dL (31.0-37.0); MCV 95.6 fL (80.0-100.0); Mean Platelet Volume 8.5; Monocytes # (A) 0.7 k/uL (0-1.0); Monocytes % (A) 5 %; Neutrophils # (A) 11.1 k/uL (1.3-7.7); Neutrophils % (A) 89 %; Platelet Count 302 k/uL (150-450); RBC 4.01 m/uL (4.30-5.90); WBC 12.6 k/uL (3.8-10.6)
[2023-09-09 14:41] LABS: INR 1.2 (<1.2); Prothrombin Time 12.5 sec (10.0-12.5)
[2023-09-09 14:51] LABS: Amorphous Sediment,Urine Occasional /hpf; Appearance,Urine Cloudy (Clear); Bilirubin,Urine Negative (Negative); Blood,Urine Negative (Negative); Color,Urine Colorless; Glucose,Urine (UA) Negative (Negative); Ketones,Urine Negative (Negative); Leukocyte Esterase,Urine Negative (Negative); Mucus,Urine Rare /hpf; Nitrite,Urine Negative (Negative); Protein,Urine Negative (Negative); RBC,Urine 2 /hpf (0-5); Squamous Epithelial Cell,Urine 1 /hpf (0-4); Urobilinogen,Urine <2.0 mg/dL (<2.0); WBC,Urine 3 /hpf (0-5)
[2023-09-09 14:53] LABS: ALT 37 U/L (4-49); AST 78 U/L (17-59); Alkaline Phosphatase 69 U/L (38-126); Anion Gap 24 mmol/L; Calcium 8.9 mg/dL (8.4-10.2); Carbon Dioxide 17 mmol/L (22-30); Chloride 99 mmol/L (98-107); Glucose 113 mg/dL (74-99); Sodium 140 mmol/L (137-145); Total Bilirubin 0.5 mg/dL (0.2-1.3); Total Protein 7.2 g/dL (6.3-8.2)
[2023-09-09 14:56] LABS: Partial Thromboplastin Time 21.6 sec (22.0-30.0)
[2023-09-09 14:59] LABS: African American GFR (CKD) 3 (>60 ml/min/1.73 sqM); Non-African American GFR(CKD) 2 (>60 ml/min/1.73 sqM)
[2023-09-09 15:04] LABS: Blood Urea Nitrogen 113 mg/dL (9-20); Potassium 6.4 mmol/L (3.5-5.1)
[2023-09-09] MEDS ORDERED: SODIUM BICARB 8.4% 50 ML SYR (1 MEQ/ML) IV ONE ×2 (15:30→23:39)
[2023-09-09] MEDS ORDERED: CALCIUM GLUCONATE IN NACL 1 GM in SALINE 1 100ML.BAG IVPB ONE (15:30)
[2023-09-09] MEDS ORDERED: DEXTROSE 50% SYRINGE 50 ML IVP ONE ×2 (15:30→23:39)
[2023-09-09] MEDS ORDERED: INSULIN REGULAR 100 UNIT/ML VIAL (IV) IV ONE ×2 (15:30→23:39)
[2023-09-09] MEDS ORDERED: ONDANSETRON 4 MG/2 ML VIAL IVP STA (15:31)
[2023-09-09] MEDS ORDERED: HEPARIN SODIUM 1,000 UN/ML (10ML VL) IV PRN (15:33)
[2023-09-09] MEDS ORDERED: HEPARIN SODIUM 1,000 UN/ML (10ML VL) IV ONE (15:33)
[2023-09-09] MEDS ORDERED: ASPIRIN 81 MG PO STA (15:33)
[2023-09-09] MEDS ORDERED: NALOXONE 0.4 MG/ML 1 ML VIAL IV PRN (15:53)
[2023-09-09] MEDS ORDERED: ACETAMINOPHEN TAB 325 MG TAB PO PRN (15:53)
[2023-09-09] MEDS ORDERED: ONDANSETRON 4 MG/2 ML VIAL IVP PRN (15:53)
[2023-09-09] MEDS: HEPARIN SOD,PORK IN 0.45% NACL 25,000 UNIT in 0.45% NACL 1 250ML.BAG IV SCH (16:12)
--- NOTE | 2023-09-09 16:15 | XR ---
EXAMINATION TYPE: XR chest 2V DATE OF EXAM: 09/09/2023 COMPARISON: 12/20/2022 HISTORY: 78-year-old male with weakness TECHNIQUE: AP and lateral views FINDINGS: Heart borderline enlarged. Hyperinflation. Interstitial/vascular prominence. Small bilateral pleural effusions with bibasilar opacities. IMPRESSION: 1. Correlate for COPD with superimposed CHF and pulmonary vascular congestion. 2. Small bilateral pleural effusions with adjacent atelectasis and/or consolidation.
[2023-09-09] MEDS: ATORVASTATIN 80 MG TAB PO SCH (16:20)
[2023-09-09] MEDS: SODIUM CHLORIDE 0.9% 1,000 ML IV SCH (16:22)
[2023-09-09] MEDS: PANTOPRAZOLE 40 MG/10 ML VIAL IV SCH (16:23)
[2023-09-09] MEDS: atenoloL 50 MG TAB PO SCH (16:52)
--- NOTE | 2023-09-09 18:49 | US ---
EXAMINATION TYPE: US kidneys/renal and bladder DATE OF EXAM: 09/09/2023 COMPARISON: NONE CLINICAL INDICATION: Male, 78 years old with history of sarwat; SARWAT. EXAM MEASUREMENTS: Right Kidney: 12.0 x 5.3 x 5.6 cm Left Kidney: 12.9 x 6.5 x 7.2 cm Right Kidney: Mild to moderate hydronephrosis. Shadowing stone at the lower pole measuring 1.1 x 1. 0 x 1.0 cm. Left Kidney: Moderate to severe hydronephrosis. Shadowing stone in the lower pole measuring 1.0 x 0.8 x 0.7 cm. Bladder: Appears anechoic. Bilateral Jets seen: No IMPRESSION: There is moderate to severe left and [id number] right hydronephrosis. Appropriate further shilo p advised.
[2023-09-10] MEDS: SODIUM ZIRCONIUM CYCLOSILICATE 10 GM PACKET PO SCH ×3 (00:31→16:37)
--- NOTE | 2023-09-10 00:40 | P.HPIM ---
History of Present Illness H&P Date: 09/09/23 Chief Complaint: Nausea Patient is a 78-year-old male with a past medical history of hypertension presents to ER with complaints of nausea and feeling like he has to gag. His symptoms have been present for the past 1 month. Patient also states that he has been having difficulty urinating which he thought was due to his enlarged prostate., Which has been present for the past few months. He also complains of frequent urination and he admits he has to go have a bowel movement. Patient also complaining of worsening leg swelling bilaterally. Patient has been having frequently acclamation for a long time. He has to wake up at least 5-6 times in the night. He does have a history of chronic diarrhea. Patient has been taking silver colloid/alternative medicine for years. He was also complaining lesion over his right side of the nose and has not follow-up with his primary care physician. Laboratory data showed WBC 12.6 hemoglobin 12.5 and platelets 302 Sodium 140 potassium 6.4 chloride 99 bicarb is 17 BUN 113 and creatinine 17.44 Blood sugar is 133, AST 78, ALT 37 and alk phos 69. Troponin 11.5 Urinalysis is negative for infection. Negative protein and pH 7.0. Influenza A, B, RSV and COVID-19 PCR nondetected. EKG showed sinus rhythm with nonspecific T wave abnormality. No evidence of peaked T waves. Chest x-ray showed correlate for COPD with superimposed CHF and pulmonary vascular congestion. Small bilateral pleural effusions with adjacent atelectasis or consolidation. Review of Systems Constitutional: Patient denies any fever or chills . Generalized weakness. Abdomen: Patient is complaining of nausea. No episodes of vomiting. No complaints of abdominal pain. Cardiovascular: Patient denies any chest pain or short of breath no palpitations. Does have leg swelling. Respiratory: patient denied any cough . no sputum production. No shortness of breath Neurologic: Patient denied any numbness or tingling or headache. Musculoskeletal: Patient denies any complaints of joint swelling or deformity. Skin: Negative Psychiatric: Negative Endocrine: No heat or cold intolerance. No recent weight gain. Genitourinary: No dysuria or hematuria. Increased frequency and difficulty urination. All other 14 point ROS negative except the above Past Medical History Past Medical History: Hypertension History of Any Multi-Drug Resistant Organisms: None Reported Past Surgical History: No Surgical Hx Reported Past Psychological History: No Psychological Hx Reported Smoking Status: Never smoker Past Alcohol Use History: None Reported Past Drug Use History: None Reported Medications and Allergies Home Medications Medication Instructions Recorded Confirmed Type Aspirin EC [Ecotrin Low Dose] 81 mg PO DAILY 01/12/17 09/09/23 History Loperamide [Imodium] 2 mg PO QID PRN 09/09/23 09/09/23 History Losartan Potassium 100 mg PO DAILY 09/09/23 09/09/23 History atenoloL [Tenormin] 50 mg PO DAILY 09/09/23 09/09/23 History Allergies Allergy/AdvReac Type Severity Reaction Status Date / Time No Known Allergies Allergy Verified 09/09/23 15:42 Physical Exam Vitals: Vital Signs Temp Pulse Resp BP Pulse Ox 09/09/23 13:56 97.6 F 82 20 185/99 98 Intake and Output 09/09/23 09/09/23 09/09/23 06:59 14:59 22:59 Other: Weight 74.843 kg PHYSICAL EXAMINATION: Patient is lying in the bed comfortably, no acute distress, awake alert and oriented.. HEENT: Normocephalic. Neck is supple. Pupils reactive. Nostrils clear. Oral cavity is moist. Skin lesion over the nose on the right side. Neck reveals no JVD, carotid bruits, or thyromegaly. CHEST EXAMINATION: Trachea is central. Symmetrical expansion. Bibasilar minimal crackles. No wheezing or rhonchi.. CARDIAC: Normal S1, S2 with no gallops. No murmurs ABDOMEN: Soft. Bowel sounds present. Nontender. No organomegaly. No abdominal bruits. Extremities: Bilateral 2+ pedal edema. No clubbing or cyanosis Neurologically awake, alert, oriented x3 with well-coordinated movements. No focal deficits noted Skin: No rash or skin lesions. Psychiatric: Coperative. Nonsuicidal, Musculoskeletal: No joint swelling or deformity. Normal range of motion. Results CBC & Chem 7: 09/09/23 14:02 09/09/23 21:31 Labs: Abnormal Lab Results - Last 24 Hours (Table) 09/09/23 09/09/23 09/09/23 Range/Units 14:02 14:02 14:02 WBC 12.6 H (3.8-10.6) k/uL RBC 4.01 L (4.30-5.90) m/uL Hgb 12.5 L (13.0-17.5) gm/dL Hct 38.3 L (39.0-53.0) % Neutrophils # 11.1 H (1.3-7.7) k/uL Lymphocytes # 0.5 L (1.0-4.8) k/uL INR 1.2 H (<1.2) APTT 21.6 L (22.0-30.0) sec Potassium 6.4 H* (3.5-5.1) mmol/L Carbon Dioxide 17 L (22-30) mmol/L BUN 113 H* (9-20) mg/dL Creatinine 17.44 H* (0.66-1.25) mg/dL Glucose 113 H (74-99) mg/dL AST 78 H (17-59) U/L Troponin I (0.000-0.034) ng/mL Amorphous Sediment (None) /hpf Urine Mucus (None) /hpf 09/09/23 09/09/23 Range/Units 14:02 14:27 WBC (3.8-10.6) k/uL RBC (4.30-5.90) m/uL Hgb (13.0-17.5) gm/dL Hct (39.0-53.0) % Neutrophils # (1.3-7.7) k/uL Lymphocytes # (1.0-4.8) k/uL INR (<1.2) APTT (22.0-30.0) sec Potassium (3.5-5.1) mmol/L Carbon Dioxide (22-30) mmol/L BUN (9-20) mg/dL Creatinine (0.66-1.25) mg/dL Glucose (74-99) mg/dL AST (17-59) U/L Troponin I 11.500 H* (0.000-0.034) ng/mL Amorphous Sediment Occasional H (None) /hpf Urine Mucus Rare H (None) /hpf Thrombosis Risk Factor Assmnt - DVT/VTE Prophylaxis DVT/VTE Prophylaxis: Pharmacologic Prophylaxis ordered Assessment and Plan Assessment: Acute kidney injury due to possible obstructive uropathy and competent of vasomotor nephropathy. Hyperkalemia secondary to kidney injury Anion gap metabolic acidosis Elevated troponin level likely due to kidney injury Fluid overload with leg swelling and vascular congestion.. Rule out acute CHF Hypertension GI prophylaxis with Protonix IV daily. Plan: Patient will be continued on IV hydration with normal saline. Stout catheter is being placed. Patient was given calcium gluconate, D50/regular insulin IV and sodium bicarb IV in the ER. Follow-up repeat potassium level. Ultrasound renal was ordered. Follow-up urine sodium, protein creatinine and nephrology evaluation. Cardiology was consulted due to elevated troponin level. 2D echocardiogram was ordered. Symptomatic management for nausea. Oncology consultation due to possible basal cell carcinoma on the nose. Continue to follow closely. Prognosis is guarded. Discussed with the patient in detail at bedside. Time with Patient: Greater than 30
[2023-09-10] MEDS: SODIUM CHLORIDE 0.9% 1,000 ML IV SCH ×2 (06:37→18:48)
[2023-09-10] MEDS: TAMSULOSIN 0.4 MG CAP.ER.24H PO SCH (06:47)
[2023-09-10] MEDS ORDERED: LIDOCAINE 2% URO-JET JELLY 5 ML KIT URETHRAL ONE (09:03)
[2023-09-10 09:14] LABS: Basophils % (A) 0 %; Eosinophils # (A) 0.1 k/uL (0-0.7); Eosinophils % (A) 1 %; HCT 37.3 % (39.0-53.0); HGB 12.1 gm/dL (13.0-17.5); Lymphocytes # (A) 0.6 k/uL (1.0-4.8); Lymphocytes % (A) 6 %; MCH 31.3 pg (25.0-35.0); MCHC 32.3 g/dL (31.0-37.0); MCV 96.8 fL (80.0-100.0); Monocytes # (A) 0.7 k/uL (0-1.0); Monocytes % (A) 6 %; Neutrophils # (A) 9.2 k/uL (1.3-7.7); Neutrophils % (A) 85 %; Platelet Count 226 k/uL (150-450); RBC 3.86 m/uL (4.30-5.90); RDW 12.2 % (11.5-15.5); WBC 10.8 k/uL (3.8-10.6)
[2023-09-10 09:36] LABS: Basophils % (A) 0 %; Eosinophils # (A) 0.1 k/uL (0-0.7); Eosinophils % (A) 1 %; HCT 35.7 % (39.0-53.0); HGB 11.1 gm/dL (13.0-17.5); Lymphocytes # (A) 0.7 k/uL (1.0-4.8); Lymphocytes % (A) 6 %; MCH 30.6 pg (25.0-35.0); MCHC 31.2 g/dL (31.0-37.0); MCV 97.9 fL (80.0-100.0); Mean Platelet Volume 8.4; Monocytes # (A) 0.7 k/uL (0-1.0); Monocytes % (A) 7 %; Neutrophils # (A) 8.9 k/uL (1.3-7.7); Neutrophils % (A) 84 %; Platelet Count 251 k/uL (150-450); RBC 3.65 m/uL (4.30-5.90); RDW 12.1 % (11.5-15.5); WBC 10.5 k/uL (3.8-10.6)
[2023-09-10 09:45] LABS: ALT 37 U/L (4-49); AST 72 U/L (17-59); Albumin 3.4 g/dL (3.5-5.0); Alkaline Phosphatase 64 U/L (38-126); Anion Gap 22 mmol/L; Calcium 8.1 mg/dL (8.4-10.2); Carbon Dioxide 18 mmol/L (22-30); Chloride 100 mmol/L (98-107); Glucose 86 mg/dL (74-99); Magnesium 2.4 mg/dL (1.6-2.3); Sodium 140 mmol/L (137-145); Total Bilirubin 0.4 mg/dL (0.2-1.3); Total Protein 6.2 g/dL (6.3-8.2)
[2023-09-10] MEDS: ASPIRIN 325 MG TAB PO SCH (09:45)
[2023-09-10] MEDS: PANTOPRAZOLE 40 MG/10 ML VIAL IV SCH (09:46)
[2023-09-10] MEDS: atenoloL 50 MG TAB PO SCH (09:46)
[2023-09-10] MEDS: ATORVASTATIN 80 MG TAB PO SCH (09:46)
[2023-09-10 09:48] LABS: INR 1.2 (<1.2); Prothrombin Time 12.9 sec (10.0-12.5)
[2023-09-10 09:49] LABS: NT-Pro-B-Type Natriuretic Pept 18300 pg/mL
--- NOTE | 2023-09-10 09:57 | CONS ---
CONSULTATION CHIEF COMPLAINT: Elevated troponin. HISTORY OF PRESENT ILLNESS: Mr. Pichardo is an 78-year-old gentleman with history of benign prostatic hypertrophy, who presented to hospital complaining of nausea and not feeling well for the past 1 month, and difficulties in urination and frequency. The patient was initially treated with Flomax, could not tolerate it because of dizziness and stopped taking it about 6 months ago. He wakes up every night about 5 to 6 times and has not been able to urinate properly. On his initial presentation, he was found to have a BUN of 113 and a creatinine of 17. His baseline creatinine was normal. A troponin was done for unclear reasons and it came back at 11.5, for which Cardiology has been consulted. An EKG showed nonspecific T-wave inversions in the inferior leads. From a cardiac standpoint, the patient's presentation is suggestive of a won-BG-[id number] elevation MS in the recent past. The patient does not have chest pain or difficulty in breathing. There is no prior history of coronary artery disease or congestive heart failure. At the time of my evaluation, the patient appears comfortable at rest and is free of symptoms. An ultrasound of the abdomen revealed bilateral hydronephrosis. The patient's renal failure is related to obstructive uropathy and troponin elevation could be due to a combination of renal failure and recent myocardial infarction. I do not have any repeat labs on him. I requested the nurse to obtain electrolytes and a troponin this morning. I will also obtain a 2D echo to evaluate his LV function. I am going to treat him with medical therapy with aspirin, statin, beta falguni, and nitrates, and continue the heparin for another day. I will obtain a 2D echo. Once the renal failure issues resolve, he will need evaluation for underlying CAD. I discussed these issues at length with the patient. He understands and agreement with the plans. PAST MEDICAL HISTORY: Significant for hypertension and prostatic hypertrophy. MEDICATIONS: Include: 1. Tenormin 50 daily. 2. Losartan 100 daily. 3. Aspirin. ALLERGIES: There are no known drug allergies. FAMILY HISTORY: Negative for premature coronary artery disease. SOCIAL HISTORY: Negative for current smoking, EtOH abuse, or drug abuse. REVIEW OF SYSTEMS: HEENT: Unremarkable. CARDIAC: As described above. RESPIRATORY: Negative. GI: Significant for nausea and abdominal discomfort. GENITOURINARY: Significant for obstructive uropathy. PSYCHOSOCIAL: Negative. DERM: Negative. CONSTITUTIONAL: Significant for fatigue and tiredness. The rest of the system review is not relevant. PHYSICAL EXAMINATION: GENERAL: Comfortable at rest. Afebrile. Heart rate is 73 beats per minute, blood pressure is 144/78, respiratory rate 18, O2 saturation is 94% on room air. NECK: There is no jugular venous distention. CHEST: Reveals good air entry bilaterally. HEART: Reveals first and second heart sounds. An S4 is heard. ABDOMEN: Soft. EXTREMITIES: Exam of extremities did not reveal any edema. Peripheral pulses are felt. ASSESSMENT: 1. Acute renal failure, secondary to obstructive uropathy with bilateral hydronephrosis. Management per Nephrology and Urology. 2. Jzu-RB-[id number] elevation myocardial infarction. PLAN: I will obtain a 2D echo. Continue the IV heparin until this afternoon, stop it and start him on subcu heparin. Treat him with aspirin, nitrates, beta blockers, statins, and evaluate him for underlying CAD down the road. MMODL / IJN: [id number] /
[2023-09-10 09:58] LABS: African American GFR (CKD) 3 (>60 ml/min/1.73 sqM)
[2023-09-10] MEDS: ISOSORBIDE MONONITRATE ER 30 MG TAB.ER.24H PO SCH (10:14)
[2023-09-10 10:16] LABS: Potassium 6.1 mmol/L (3.5-5.1)
[2023-09-10 10:19] LABS: Blood Urea Nitrogen 113 mg/dL (9-20)
[2023-09-10 10:20] LABS: Non-African American GFR(CKD) 2 (>60 ml/min/1.73 sqM); Phosphorus 9.2 mg/dL (2.5-4.5)
[2023-09-10] MEDS ORDERED: INSULIN REGULAR 100 UNIT/ML VIAL (IV) IV ONE (10:40)
[2023-09-10] MEDS ORDERED: DEXTROSE 50% SYRINGE 50 ML IVP STA (10:42)
--- NOTE | 2023-09-10 13:14 | P.GSCN ---
History of Present Illness Consult date: 09/10/23 Reason for Consult: Urinary retention, hydronephrosis Requesting physician: Kiera Vivas History of present illness: The patient is an 78-year-old white male with an unremarkable urologic history. He has noted a weak urinary stream for the past several months, with increased nocturia. He was treated with tamsulosin, but this was discontinued due to dizziness. He presented to the ER with primary complaints of nausea and difficulty voiding. He has also experienced generalized weakness and lower extremity edema. He has been found to be in urinary retention. Attempts by the nursing staff to insert a Stout catheter have been unsuccessful. His serum creatinine level in December 2022 was 0.8. Review of Systems - Constitutional Reports weakness - Gastrointestinal Reports nausea - Genitourinary Reports urinary frequency Past Medical History Past Medical History: Cancer, Hypertension History of Any Multi-Drug Resistant Organisms: None Reported Past Surgical History: No Surgical Hx Reported Past Psychological History: No Psychological Hx Reported Smoking Status: Never smoker Past Alcohol Use History: None Reported Past Drug Use History: None Reported Medications and Allergies Home Medications Medication Instructions Recorded Confirmed Type Aspirin EC [Ecotrin Low Dose] 81 mg PO DAILY 01/12/17 09/09/23 History Loperamide [Imodium] 2 mg PO QID PRN 09/09/23 09/09/23 History Losartan Potassium 100 mg PO DAILY 09/09/23 09/09/23 History atenoloL [Tenormin] 50 mg PO DAILY 09/09/23 09/09/23 History Allergies Allergy/AdvReac Type Severity Reaction Status Date / Time No Known Allergies Allergy Verified 09/09/23 15:42 Surgical - Exam Vital Signs Temp Pulse Resp BP Pulse Ox 97.6 F 82 20 185/99 98 09/09/23 13:56 09/09/23 13:56 09/09/23 13:56 09/09/23 13:56 09/09/23 13:56 - General well developed, well nourished, no distress - Respiratory normal respiratory effort - Abdomen Soft, non-tender. Suprapubic distention is noted. - Genitourinary normal penis with no external lesions, testicles non-tender - Psychiatric oriented to time, oriented to person, oriented to place, speech is normal, memory intact Results - Labs 09/10/23 09:16 09/10/23 08:45 Abnormal Lab Results - Last 24 Hours (Table) 09/09/23 09/09/23 09/09/23 Range/Units 14:02 14:02 14:02 WBC 12.6 H (3.8-10.6) k/uL RBC 4.01 L (4.30-5.90) m/uL Hgb 12.5 L (13.0-17.5) gm/dL Hct 38.3 L (39.0-53.0) % Neutrophils # 11.1 H (1.3-7.7) k/uL Lymphocytes # 0.5 L (1.0-4.8) k/uL PT (10.0-12.5) sec INR 1.2 H (<1.2) APTT 21.6 L (22.0-30.0) sec Potassium 6.4 H* (3.5-5.1) mmol/L Carbon Dioxide 17 L (22-30) mmol/L BUN 113 H* (9-20) mg/dL Creatinine 17.44 H* (0.66-1.25) mg/dL Glucose 113 H (74-99) mg/dL Calcium (8.4-10.2) mg/dL Phosphorus (2.5-4.5) mg/dL Magnesium (1.6-2.3) mg/dL AST 78 H (17-59) U/L Troponin I (0.000-0.034) ng/mL Total Protein (6.3-8.2) g/dL Albumin (3.5-5.0) g/dL Amorphous Sediment (None) /hpf Urine Mucus (None) /hpf 09/09/23 09/09/23 09/09/23 Range/Units 14:02 14:27 21:31 WBC (3.8-10.6) k/uL RBC (4.30-5.90) m/uL Hgb (13.0-17.5) gm/dL Hct (39.0-53.0) % Neutrophils # (1.3-7.7) k/uL Lymphocytes # (1.0-4.8) k/uL PT (10.0-12.5) sec INR (<1.2) APTT (22.0-30.0) sec Potassium 6.3 H* (3.5-5.1) mmol/L Carbon Dioxide (22-30) mmol/L BUN (9-20) mg/dL Creatinine (0.66-1.25) mg/dL Glucose (74-99) mg/dL Calcium (8.4-10.2) mg/dL Phosphorus (2.5-4.5) mg/dL Magnesium (1.6-2.3) mg/dL AST (17-59) U/L Troponin I 11.500 H* (0.000-0.034) ng/mL Total Protein (6.3-8.2) g/dL Albumin (3.5-5.0) g/dL Amorphous Sediment Occasional H (None) /hpf Urine Mucus Rare H (None) /hpf 09/09/23 09/10/23 09/10/23 Range/Units 21:31 03:39 08:45 WBC (3.8-10.6) k/uL RBC (4.30-5.90) m/uL Hgb (13.0-17.5) gm/dL Hct (39.0-53.0) % Neutrophils # (1.3-7.7) k/uL Lymphocytes # (1.0-4.8) k/uL PT (10.0-12.5) sec INR (<1.2) APTT 44.0 H (22.0-30.0) sec Potassium 5.9 H 6.1 H* (3.5-5.1) mmol/L Carbon Dioxide 18 L (22-30) mmol/L BUN 113 H* (9-20) mg/dL Creatinine 17.50 H* (0.66-1.25) mg/dL Glucose (74-99) mg/dL Calcium 8.1 L (8.4-10.2) mg/dL Phosphorus 9.2 H* (2.5-4.5) mg/dL Magnesium 2.4 H (1.6-2.3) mg/dL AST 72 H (17-59) U/L Troponin I (0.000-0.034) ng/mL Total Protein 6.2 L (6.3-8.2) g/dL Albumin 3.4 L (3.5-5.0) g/dL Amorphous Sediment (None) /hpf Urine Mucus (None) /hpf 09/10/23 09/10/23 09/10/23 Range/Units 08:45 09:16 09:16 WBC 10.8 H (3.8-10.6) k/uL RBC 3.86 L 3.65 L (4.30-5.90) m/uL Hgb 12.1 L 11.1 L (13.0-17.5) gm/dL Hct 37.3 L 35.7 L (39.0-53.0) % Neutrophils # 9.2 H 8.9 H (1.3-7.7) k/uL Lymphocytes # 0.6 L 0.7 L (1.0-4.8) k/uL PT 12.9 H (10.0-12.5) sec INR 1.2 H (<1.2) APTT (22.0-30.0) sec Potassium (3.5-5.1) mmol/L Carbon Dioxide (22-30) mmol/L BUN (9-20) mg/dL Creatinine (0.66-1.25) mg/dL Glucose (74-99) mg/dL Calcium (8.4-10.2) mg/dL Phosphorus (2.5-4.5) mg/dL Magnesium (1.6-2.3) mg/dL AST (17-59) U/L Troponin I (0.000-0.034) ng/mL Total Protein (6.3-8.2) g/dL Albumin (3.5-5.0) g/dL Amorphous Sediment (None) /hpf Urine Mucus (None) /hpf 09/10/23 09/10/23 Range/Units 09:16 09:16 WBC (3.8-10.6) k/uL RBC (4.30-5.90) m/uL Hgb (13.0-17.5) gm/dL Hct (39.0-53.0) % Neutrophils # (1.3-7.7) k/uL Lymphocytes # (1.0-4.8) k/uL PT (10.0-12.5) sec INR (<1.2) APTT 52.4 H (22.0-30.0) sec Potassium (3.5-5.1) mmol/L Carbon Dioxide (22-30) mmol/L BUN (9-20) mg/dL Creatinine (0.66-1.25) mg/dL Glucose (74-99) mg/dL Calcium (8.4-10.2) mg/dL Phosphorus (2.5-4.5) mg/dL Magnesium (1.6-2.3) mg/dL AST (17-59) U/L Troponin I 21.100 H* (0.000-0.034) ng/mL Total Protein (6.3-8.2) g/dL Albumin (3.5-5.0) g/dL Amorphous Sediment (None) /hpf Urine Mucus (None) /hpf Diabetes panel 09/09/23 09/09/23 09/10/23 Range/Units 14:02 21:31 03:39 Sodium 140 (137-145) mmol/L Potassium 6.4 H* 6.3 H* 5.9 H (3.5-5.1) mmol/L Chloride 99 (98-107) mmol/L Carbon Dioxide 17 L (22-30) mmol/L BUN 113 H* (9-20) mg/dL Creatinine 17.44 H* (0.66-1.25) mg/dL Glucose 113 H (74-99) mg/dL Calcium 8.9 (8.4-10.2) mg/dL AST 78 H (17-59) U/L ALT 37 (4-49) U/L Alkaline Phosphatase 69 (38-126) U/L Total Protein 7.2 (6.3-8.2) g/dL Albumin 4.0 (3.5-5.0) g/dL 09/10/23 Range/Units 08:45 Sodium 140 (137-145) mmol/L Potassium 6.1 H* (3.5-5.1) mmol/L Chloride 100 (98-107) mmol/L Carbon Dioxide 18 L (22-30) mmol/L BUN 113 H* (9-20) mg/dL Creatinine 17.50 H* (0.66-1.25) mg/dL Glucose 86 (74-99) mg/dL Calcium 8.1 L (8.4-10.2) mg/dL AST 72 H (17-59) U/L ALT 37 (4-49) U/L Alkaline Phosphatase 64 (38-126) U/L Total Protein 6.2 L (6.3-8.2) g/dL Albumin 3.4 L (3.5-5.0) g/dL Calcium panel 09/09/23 09/10/23 Range/Units 14:02 08:45 Calcium 8.9 8.1 L (8.4-10.2) mg/dL Phosphorus 9.2 H* (2.5-4.5) mg/dL Albumin 4.0 3.4 L (3.5-5.0) g/dL Pituitary panel 09/09/23 09/09/23 09/10/23 Range/Units 14:02 21:31 03:39 Sodium 140 (137-145) mmol/L Potassium 6.4 H* 6.3 H* 5.9 H (3.5-5.1) mmol/L Chloride 99 (98-107) mmol/L Carbon Dioxide 17 L (22-30) mmol/L BUN 113 H* (9-20) mg/dL Creatinine 17.44 H* (0.66-1.25) mg/dL Glucose 113 H (74-99) mg/dL Calcium 8.9 (8.4-10.2) mg/dL 09/10/23 Range/Units 08:45 Sodium 140 (137-145) mmol/L Potassium 6.1 H* (3.5-5.1) mmol/L Chloride 100 (98-107) mmol/L Carbon Dioxide 18 L (22-30) mmol/L BUN 113 H* (9-20) mg/dL Creatinine 17.50 H* (0.66-1.25) mg/dL Glucose 86 (74-99) mg/dL Calcium 8.1 L (8.4-10.2) mg/dL Adrenal panel 09/09/23 09/09/23 09/10/23 Range/Units 14:02 21:31 03:39 Sodium 140 (137-145) mmol/L Potassium 6.4 H* 6.3 H* 5.9 H (3.5-5.1) mmol/L Chloride 99 (98-107) mmol/L Carbon Dioxide 17 L (22-30) mmol/L BUN 113 H* (9-20) mg/dL Creatinine 17.44 H* (0.66-1.25) mg/dL Glucose 113 H (74-99) mg/dL Calcium 8.9 (8.4-10.2) mg/dL Total Bilirubin 0.5 (0.2-1.3) mg/dL AST 78 H (17-59) U/L ALT 37 (4-49) U/L Alkaline Phosphatase 69 (38-126) U/L Total Protein 7.2 (6.3-8.2) g/dL Albumin 4.0 (3.5-5.0) g/dL 09/10/23 Range/Units 08:45 Sodium 140 (137-145) mmol/L Potassium 6.1 H* (3.5-5.1) mmol/L Chloride 100 (98-107) mmol/L Carbon Dioxide 18 L (22-30) mmol/L BUN 113 H* (9-20) mg/dL Creatinine 17.50 H* (0.66-1.25) mg/dL Glucose 86 (74-99) mg/dL Calcium 8.1 L (8.4-10.2) mg/dL Total Bilirubin 0.4 (0.2-1.3) mg/dL AST 72 H (17-59) U/L ALT 37 (4-49) U/L Alkaline Phosphatase 64 (38-126) U/L Total Protein 6.2 L (6.3-8.2) g/dL Albumin 3.4 L (3.5-5.0) g/dL - Imaging US - kidney/bladder: report reviewed, image reviewed Assessment and Plan (1) Urinary retention Current Visit: Yes Status: Acute Code(s): R33.9 - RETENTION OF URINE, UNSPECIFIED SNOMED Code(s): 755545261 (2) Hydronephrosis Current Visit: Yes Status: Acute Code(s): N13.30 - UNSPECIFIED HYDRONEPHROSIS SNOMED Code(s): 67267010 (3) Acute renal failure (ARF) Current Visit: Yes Status: Acute Code(s): N17.9 - ACUTE KIDNEY FAILURE, UNSPECIFIED SNOMED Code(s): 52857357 Plan: With considerable difficulty, a Stout catheter was placed with return of 1100 mL of clear yellow urine. The catheter should remain in place, and the patient should receive adequate hydration as he will likely experience postobstructive diuresis. Time with Patient: Greater than 30
--- NOTE | 2023-09-10 13:17 | P.PCN ---
Date of Procedure: 09/10/23 Preoperative Diagnosis: Urinary retention Postoperative Diagnosis: Same Procedure(s) Performed: Urethral dilation, difficult Stout catheter insertion Anesthesia: local Surgeon: Temo Colmenares Estimated Blood Loss (ml): 0 Pathology: none sent Condition: stable Disposition: no change Indications for Procedure: The patient is an 78-year-old white male admitted with renal failure. He has been found to be in urinary retention, and ultrasound shows evidence of bilateral hydronephrosis. Attempts by the nursing staff to insert a Stout catheter were unsuccessful. Operative Findings: Obstruction at the level of the prostate. 1100 mL of urine obtained upon catheter placement. Description of Procedure: The patient lied supine in his hospital bed. The penis was prepped and draped sterilely. 2% lidocaine gel was administered intraurethrally. Attempts were made to insert a 16-[place] coud Stout catheter and a 12-[place] coud Stout catheter. Both were unsuccessful. A 4-[place] spiral tip filiform was advanced through the urethra and into the bladder. Filiform and followers were used to dilate the urethra from 10-[place] to 20-[place]. A 0.035 inch angled-tip guidewire was then passed through the follower and coiled in the bladder. An incision was made in the tip of a 16- [place] Stout catheter, which was then passed over the wire and into the bladder. 1100 mL of clear yellow urine drained. The patient tolerated the procedure well.
--- NOTE | 2023-09-10 13:31 | P.NPCON ---
History of Present Illness - Reason for Consult acute renal failure - History of Present Illness Patient is an 78-year-old male with history of hypertension and enlarged prostate who was admitted to the hospital with complaints of nausea and increased weakness which has been going on for about a month now. Patient did state that he had increased frequency and nocturia. Legs were noted to be more swollen over the last month or so. 9 no significant complaints of abdominal pain fever or diarrhea. Serum creatinine was 17.4 on admission with BUN of 113. Previous creatinine 0.8 on 12/21/2022. Ultrasound of the abdomen shows bilateral hydronephrosis and prostamegaly. Stout catheter could not be placed by nursing staff and urology is on consult. Review of Systems As per HPI Past Medical History Past Medical History: Cancer, Hypertension History of Any Multi-Drug Resistant Organisms: None Reported Past Surgical History: No Surgical Hx Reported Past Psychological History: No Psychological Hx Reported Smoking Status: Never smoker Past Alcohol Use History: None Reported Past Drug Use History: None Reported Medications and Allergies Home Medications Medication Instructions Recorded Confirmed Type Aspirin EC [Ecotrin Low Dose] 81 mg PO DAILY 01/12/17 09/09/23 History Loperamide [Imodium] 2 mg PO QID PRN 09/09/23 09/09/23 History Losartan Potassium 100 mg PO DAILY 09/09/23 09/09/23 History atenoloL [Tenormin] 50 mg PO DAILY 09/09/23 09/09/23 History Allergies Allergy/AdvReac Type Severity Reaction Status Date / Time No Known Allergies Allergy Verified 09/09/23 15:42 Physical Exam Vitals: Vital Signs Temp Pulse Pulse Resp BP BP Pulse Ox 09/10/23 08:54 73 16 09/10/23 07:53 97.9 F 73 16 144/78 94 L 09/10/23 04:00 98.1 F 74 18 136/82 95 09/10/23 02:00 85 09/10/23 00:45 98.0 F 84 17 142/85 95 09/10/23 00:00 98.0 F 84 17 142/85 95 09/09/23 21:32 74 18 141/76 95 09/09/23 19:28 84 18 129/71 94 L 09/09/23 16:52 54 L 18 164/97 94 L 09/09/23 13:56 97.6 F 82 20 185/99 98 Intake and Output 09/09/23 09/10/23 09/10/23 22:59 06:59 14:59 Intake Total 240 Output Total 15 Balance -15 240 Intake: Oral 240 Output: Urine 15 Other: Voiding Method External Catheter Urinal # Voids 1 Weight 83.2 kg Patient is awake, comfortable, in no acute distress Alert oriented 3 No asterixis noted Examination of the heart S1 and S2, no pericardial rub Examination of the lungs bilateral breath sounds are heard Abdomen is soft nontender Examination of lower extremities shows edema 2+ bilaterally DIGITAL MARKETING SPECIALIST exam grossly intact Results - Lab Results Most recent lab results Calcium 8.1 mg/dL (8.4-10.2) L 09/10/23 08:45 Phosphorus 9.2 mg/dL (2.5-4.5) H* 09/10/23 08:45 Magnesium 2.4 mg/dL (1.6-2.3) H 09/10/23 08:45 09/10/23 09:16 09/10/23 08:45 Assessment and Plan Assessment: 1. Acute kidney injury secondary to obstructive uropathy with bilateral hydronephrosis. Stout catheter will be placed by urology. Previous creatinine 0.8 mg/dL in December 2022. Patient is currently fairly asymptomatic therefore I we will hold off on dialysis. UA is completely benign. 2. BPH with obstructive uropathy 3. Hyperkalemia associated with acute kidney injury and obstructive uropathy, expect improvement with relief of obstruction 4. Non-ST elevation OR being followed by cardiology 5. Anion gap metabolic acidosis secondary to his severe acute kidney injury 6. Hyperphosphatemia associated with acute kidney injury, expect improvement with improving renal function. Plan: Continue with IV fluids Monitor for postobstructive diuresis and hematuria from bladder decompression. Repeat labs in a.m. I will hold hemodialysis for now and reevaluate again in a.m. Thank you for the consultation. We will continue to follow the patient with you during his hospitalization.
[2023-09-10 14:27] VITALS: BMI 27.8
[2023-09-10 16:09] LABS: Creatinine,Urine Random 52.5 mg/dL
[2023-09-10 17:41] LABS: Chol/HDL Ratio 4.61 Ratio; LDL Cholesterol,Calculated 91.6 mg/dL (0.0-131.0)
--- NOTE | 2023-09-10 18:00 | CA ---
Transthoracic Echo Report Name: Manas Pichardo Age: 78 Gender: M : 1945 Exam Date: 09/10/2023 12:52 Exam Location: [facility] Ht (in): 68 Wt (lb): 165 Ordering Physician: Moises Merchant DO Attending/Referring Phys: Machine Design Checker Frankie Schofield Procedure CPT: Indications: elevated trop Cardiac Hx: Technical Quality: Technically difficult study Contrast 1: Definity Total Dose (mL): 5 Contrast 2: Total Dose (mL): MEASUREMENTS (Male / Female) Normal Values 2D ECHO LV Diastolic Diameter PLAX 4.2 cm 4.2 - 5.9 / 3.9 - 5.3 cm LV Systolic Diameter PLAX 3.0 cm IVS Diastolic Thickness 1.0 cm 0.6 - 1.0 / 0.6 - 0.9 cm LVPW Diastolic Thickness 1.1 cm 0.6 - 1.0 / 0.6 - 0.9 cm LV Relative Wall Thickness 0.5 RV Internal Dim ED PLAX 3.8 cm LVOT Diameter 2.0 cm Aortic Root Diameter 2.9 cm LA Systolic Diameter LX 3.0 cm 3.0 - 4.0 / 2.7 - 3.8 cm LV Diastolic Volume MOD 4C 66.9 cm??? LV Systolic Volume MOD 4C 28.8 cm??? LV Ejection Fraction MOD 4C 57.0 % LV Cardiac Index MOD 4C 1723.4 cm???/min???m??? LV Diastolic Length 4C 7.6 cm LV Systolic Length 4C 6.9 cm LA Volume 44.8 cm??? 18 - 58 / 22 - 52 cm??? LA Volume Index 23.5 cm???/m??? 16 - 28 cm???/m??? DOPPLER AV Peak Velocity 126.1 cm/s AV Peak Gradient 6.4 mmHg AI Peak Velocity 263.0 cm/s AI Peak Gradient 27.7 mmHg AI Pressure Half Time 570.9 ms LVOT Peak Velocity 92.0 cm/s LVOT Peak Gradient 3.4 mmHg LVOT Velocity Time Integral 21.4 cm LVOT Stroke Volume 67.6 cm??? LVOT Stroke Volume Index 35.9 ml/m??? LVOT Cardiac Index 3053.6 cm???/min???m??? AV Area Cont Eq pk 2.3 cm??? MV Peak Velocity 113.6 cm/s MV Peak Gradient 5.2 mmHg MV Mean Velocity 59.1 cm/s MV Mean Gradient 1.8 mmHg MV Velocity Time Integral 27.8 cm MR Peak Velocity 406.9 cm/s MR Peak Gradient 66.2 mmHg Mitral E Point Velocity 93.0 cm/s Mitral A Point Velocity 100.1 cm/s Mitral E to A Ratio 0.9 MV Deceleration Time 195.8 ms MV E' Velocity 6.5 cm/s Mitral E to MV E' Ratio 14.2 TR Peak Velocity 324.6 cm/s TR Peak Gradient 42.1 mmHg Right Ventricular Systolic Press 47.1 mmHg PV Peak Velocity 74.3 cm/s PV Peak Gradient 2.2 mmHg FINDINGS Left Ventricle Normal LV size and wall thickness. Left ventricular ejection fraction is estimated at 55-60 %.normal left ventricular wall motion. Right Ventricle Mildly dilated right ventricular size. RVSP= 47mmHg. Right Atrium Normal right atrial size. Left Atrium Normal left atrial size. Mitral Valve Structurally normal mitral valve. Mild MR.mild mitral annular calcification. Aortic Valve Aortic valve not well visualized. Mild AI. No aortic stenosis.aortic valve sclerosis. Tricuspid Valve Structurally normal tricuspid valve. Mild TR. Pulmonic Valve Pulmonic valve not well visualized. No pulmonic regurgitation. Pericardium No pericardial effusion. Aorta Normal size aortic root. CONCLUSIONS Technically difficult study. Definity ECHO contrast used for improved visualization of the endocardial borders (inadequate visualization of two or more contiguous segments). 1. Normal left ventricle size and systolic function 2. Mild mitral, aortic and tricuspid regurgitation with mild pulmonary hypertension Previewed by: Dr. Andrez Anaya MD (Electronically Signed) Final Date: 10 September 2023 17:58
[2023-09-10] MEDS: HEPARIN SOD,PORK IN 0.45% NACL 25,000 UNIT in 0.45% NACL 1 250ML.BAG IV SCH (18:56)
--- NOTE | 2023-09-10 18:57 | P.CONS ---
History of Present Illness - Reason for Consult Consult date: 09/10/23 lesion of nose, r/o BCC Requesting physician: Kiera Vivas - Chief Complaint SARWAT - History of Present Illness Patient is an 78-year-old male that was admitted for SARWAT. Consult placed for skin lesion of nose. Patient presented to the emergency room for complaints of increased urinary frequency and increase in bowel movements. Upon admission patient was noted to be in acute kidney failure. Today, creatinine 17.5, GFR 2. Potassium 6.1. Elevated troponins also noted. Ultrasound kidneys/bladder revealed mild to moderate right-sided hydronephrosis and moderate to severe left sided hydronephrosis. Urology and nephrology following . Patient reports he has been having right-sided nose lesion for years but has had no follow-up for the same. He was told by his primary care doctor that this was likely basal cell carcinoma but states after looking at images online he was worried about surgical repair due to possible facial deformity and has been u sing OTC topical cream. Patient reports lesion has been slowly increasing in size. Denies pain at site. Denies any loss of smell. Denies abnormal lymphadenopathy. Denies unintentional weight loss and night sweats. Review of Systems 10 point ROS is negative except as stated in the HPI Past Medical History Past Medical History: Cancer, Hypertension History of Any Multi-Drug Resistant Organisms: None Reported Past Surgical History: No Surgical Hx Reported Past Psychological History: No Psychological Hx Reported Smoking Status: Never smoker Past Alcohol Use History: None Reported Past Drug Use History: None Reported Medications and Allergies Home Medications Medication Instructions Recorded Confirmed Type Aspirin EC [Ecotrin Low Dose] 81 mg PO DAILY 01/12/17 09/09/23 History Loperamide [Imodium] 2 mg PO QID PRN 09/09/23 09/09/23 History Losartan Potassium 100 mg PO DAILY 09/09/23 09/09/23 History atenoloL [Tenormin] 50 mg PO DAILY 09/09/23 09/09/23 History Allergies Allergy/AdvReac Type Severity Reaction Status Date / Time No Known Allergies Allergy Verified 09/09/23 15:42 Physical Exam Vitals: Vital Signs Temp Pulse Pulse Resp BP BP Pulse Ox 09/10/23 16:51 78 16 125/75 96 09/10/23 13:00 80 16 147/73 99 09/10/23 08:54 73 16 09/10/23 07:53 97.9 F 73 16 144/78 94 L 09/10/23 04:00 98.1 F 74 18 136/82 95 09/10/23 02:00 85 09/10/23 00:45 98.0 F 84 17 142/85 95 09/10/23 00:00 98.0 F 84 17 142/85 95 09/09/23 21:32 74 18 141/76 95 09/09/23 19:28 84 18 129/71 94 L Intake and Output 09/10/23 09/10/23 09/10/23 06:59 14:59 22:59 Intake Total 480 Output Total 15 2500 2850 Balance - Intake: Oral 480 Output: Urine 2499 2850 Other: Voiding Method External Catheter Indwelling Catheter # Voids 1 Weight 83.2 kg 83.2 kg - Constitutional General appearance: average body habitus, no acute distress - EENT Eyes: anicteric sclerae, EOMI ENT: hearing grossly normal - Neck Neck: no lymphadenopathy - Respiratory Respiratory: bilateral: CTA - Cardiovascular Rhythm: regular Heart sounds: normal: S1, S2 - Gastrointestinal General gastrointestinal: soft, no tenderness - Integumentary extensive lesion noted to right external nare, invading into tissue, with scabbing and irregular borders - Musculoskeletal Musculoskeletal: generalized weakness - Psychiatric Psychiatric: A&O x's 3 Results CBC & Chem 7: 09/10/23 09:16 09/10/23 15:43 Labs: Abnormal Lab Results - Last 24 Hours (Table) 09/09/23 09/09/23 09/10/23 Range/Units 21:31 21:31 03:39 WBC (3.8-10.6) k/uL RBC (4.30-5.90) m/uL Hgb (13.0-17.5) gm/dL Hct (39.0-53.0) % Neutrophils # (1.3-7.7) k/uL Lymphocytes # (1.0-4.8) k/uL PT (10.0-12.5) sec INR (<1.2) APTT 44.0 H (22.0-30.0) sec Potassium 6.3 H* 5.9 H (3.5-5.1) mmol/L Carbon Dioxide (22-30) mmol/L BUN (9-20) mg/dL Creatinine (0.66-1.25) mg/dL Calcium (8.4-10.2) mg/dL Phosphorus (2.5-4.5) mg/dL Magnesium (1.6-2.3) mg/dL AST (17-59) U/L Troponin I (0.000-0.034) ng/mL Total Protein (6.3-8.2) g/dL Albumin (3.5-5.0) g/dL HDL Cholesterol (40.00-60.00) mg/dL U Random Total Protein (<12) mg/dL 09/10/23 09/10/23 09/10/23 Range/Units 08:45 08:45 09:16 WBC 10.8 H (3.8-10.6) k/uL RBC 3.86 L 3.65 L (4.30-5.90) m/uL Hgb 12.1 L 11.1 L (13.0-17.5) gm/dL Hct 37.3 L 35.7 L (39.0-53.0) % Neutrophils # 9.2 H 8.9 H (1.3-7.7) k/uL Lymphocytes # 0.6 L 0.7 L (1.0-4.8) k/uL PT (10.0-12.5) sec INR (<1.2) APTT (22.0-30.0) sec Potassium 6.1 H* (3.5-5.1) mmol/L Carbon Dioxide 18 L (22-30) mmol/L BUN 113 H* (9-20) mg/dL Creatinine 17.50 H* (0.66-1.25) mg/dL Calcium 8.1 L (8.4-10.2) mg/dL Phosphorus 9.2 H* (2.5-4.5) mg/dL Magnesium 2.4 H (1.6-2.3) mg/dL AST 72 H (17-59) U/L Troponin I (0.000-0.034) ng/mL Total Protein 6.2 L (6.3-8.2) g/dL Albumin 3.4 L (3.5-5.0) g/dL HDL Cholesterol (40.00-60.00) mg/dL U Random Total Protein (<12) mg/dL 09/10/23 09/10/23 09/10/23 Range/Units 09:16 09:16 09:16 WBC (3.8-10.6) k/uL RBC (4.30-5.90) m/uL Hgb (13.0-17.5) gm/dL Hct (39.0-53.0) % Neutrophils # (1.3-7.7) k/uL Lymphocytes # (1.0-4.8) k/uL PT 12.9 H (10.0-12.5) sec INR 1.2 H (<1.2) APTT 52.4 H (22.0-30.0) sec Potassium (3.5-5.1) mmol/L Carbon Dioxide (22-30) mmol/L BUN (9-20) mg/dL Creatinine (0.66-1.25) mg/dL Calcium (8.4-10.2) mg/dL Phosphorus (2.5-4.5) mg/dL Magnesium (1.6-2.3) mg/dL AST (17-59) U/L Troponin I 21.100 H* (0.000-0.034) ng/mL Total Protein (6.3-8.2) g/dL Albumin (3.5-5.0) g/dL HDL Cholesterol (40.00-60.00) mg/dL U Random Total Protein (<12) mg/dL 09/10/23 09/10/23 Range/Units 09:16 15:00 WBC (3.8-10.6) k/uL RBC (4.30-5.90) m/uL Hgb (13.0-17.5) gm/dL Hct (39.0-53.0) % Neutrophils # (1.3-7.7) k/uL Lymphocytes # (1.0-4.8) k/uL PT (10.0-12.5) sec INR (<1.2) APTT (22.0-30.0) sec Potassium (3.5-5.1) mmol/L Carbon Dioxide (22-30) mmol/L BUN (9-20) mg/dL Creatinine (0.66-1.25) mg/dL Calcium (8.4-10.2) mg/dL Phosphorus (2.5-4.5) mg/dL Magnesium (1.6-2.3) mg/dL AST (17-59) U/L Troponin I (0.000-0.034) ng/mL Total Protein (6.3-8.2) g/dL Albumin (3.5-5.0) g/dL HDL Cholesterol 31.00 L (40.00-60.00) mg/dL U Random Total Protein 34 H (<12) mg/dL Comments: echo and US kidney reviewed Assessment and Plan (1) Lesion of skin of nose Current Visit: Yes Status: Acute Priority: Medium Code(s): L98.9 - DISORDER OF THE SKIN AND SUBCUTANEOUS TISSUE, UNSPECIFIED SNOMED Code(s): 28721824970591778 (2) Acute renal failure (ARF) Current Visit: Yes Status: Acute Priority: High Code(s): N17.9 - ACUTE KIDNEY FAILURE, UNSPECIFIED SNOMED Code(s): 75270851 (3) Hydronephrosis Current Visit: Yes Status: Acute Priority: High Code(s): N13.30 - UNSPECIFIED HYDRONEPHROSIS SNOMED Code(s): 46078067 Plan: Skin lesion of nose: -Patient reports he has been having right-sided nose lesion for years but has had no follow-up for the same. He was told by his primary care doctor that this was likely basal cell carcinoma but states after looking at images online he was worried about surgical repair due to possible facial deformity and has been using OTC topical cream. Patient reports lesion has been slowly increasing in size. Denies constitutional symptoms -Spoke with rad onc regarding case, will set up outpt f/u in the next 1-2 weeks -Once kidney function improved will plan for outpt CT chest/neck with contrast to r/o metastatic disease. Derm consult will be placed for biopsy Pt updated on POC and was agreeable to proceed SARWAT: -Creatinine 17.5, GFR 2. -Ultrasound kidneys/bladder revealed mild to moderate right-sided hydronephrosis and moderate to severe rleft sided hydronephrosis. -Urology and nephrology following attests: I have seen and examined patient, performed H&P, developed impression and plan of care. Discussed with dictator. Agree with documentation, dictated as a scribe
--- NOTE | 2023-09-11 05:16 | P.PN ---
Subjective Progress Note Date: 09/10/23 Patient is a 78-year-old male with a past medical history of hypertension presents to ER with complaints of nausea and feeling like he has to gag. His symptoms have been present for the past 1 month. Patient also states that he has been having difficulty urinating which he thought was due to his enlarged prostate., Which has been present for the past few months. He also complains of frequent urination and he admits he has to go have a bowel movement. Patient also complaining of worsening leg swelling bilaterally. Patient has been having frequently acclamation for a long time. He has to wake up at least 5-6 times in the night. He does have a history of chronic diarrhea. Patient has been taking silver colloid/alternative medicine for years. He was also complaining lesion over his right side of the nose and has not follow-up with his primary care physician. Laboratory data showed WBC 12.6 hemoglobin 12.5 and platelets 302 Sodium 140 potassium 6.4 chloride 99 bicarb is 17 BUN 113 and creatinine 17.44 Blood sugar is 133, AST 78, ALT 37 and alk phos 69. Troponin 11.5 Urinalysis is negative for infection. Negative protein and pH 7.0. Influenza A, B, RSV and COVID-19 PCR nondetected. EKG showed sinus rhythm with nonspecific T wave abnormality. No evidence of peaked T waves. Chest x-ray showed correlate for COPD with superimposed CHF and pulmonary vascular congestion. Small bilateral pleural effusions with adjacent atelectasis or consolidation. 09/10/2023 Patient seen and evaluated in follow-up with no acute issues overnight. Patient reports nausea is improved and tolerating diet. Multiple medical consultations following including nephrology and cardiology. Patient continues to have severely abnormal kidney functions as well as elevated potassium which is being addressed. Patient having some urinary retention and has been having some dribbling and producing very little urine urology is consulted for possible urinary catheter placement. Oncology consulted as well history is basal cell carcinoma on the nose and appreciate input recommendations. Will need PT/OT therapy evaluation and possible ECF. Overall prognosis is guarded at this time Review of systems: Constitutional: No reports of fatigue, fever, or chills Cardiovascular: No reports of chest pain or palpitations Respiratory: No reports of shortness of breath or cough GI: No reports of nausea, vomiting, or diarrhea : No reports of dysuria, report some retention and only dribbling with difficulty urinating Neurovascular: reports of generalized weakness All medications have been reviewed Physical exam: Patient is sitting up in the bed comfortably, no acute distress, awake alert and oriented.. HEENT: Normocephalic. Neck is supple. Pupils reactive. Nostrils clear. Oral cavity is moist. Skin lesion over the nose on the right side. Neck reveals no JVD, carotid bruits, or thyromegaly. CHEST EXAMINATION: Trachea is central. Symmetrical expansion. Bibasilar minimal crackles. No wheezing or rhonchi.. CARDIAC: Normal S1, S2 with no gallops. No murmurs ABDOMEN: Soft. Bowel sounds present. Nontender. No organomegaly. No abdominal bruits. Extremities: Bilateral 2+ pedal edema. No clubbing or cyanosis Neurologically awake, alert, oriented x3 with well-coordinated movements. No focal deficits noted Skin: No rash skin lesion noted on the nose, ashen color over the body. Psychiatric: Cooperative. Nonsuicidal, Musculoskeletal: No joint swelling or deformity. Normal range of motion. Assessment: Acute kidney injury due to possible obstructive uropathy and component of va somotor nephropathy. Hyperkalemia secondary to kidney injury Anion gap metabolic acidosis Skin lesion noted on the nose, possible basal cell carcinoma Elevated troponin level likely due to kidney injury Fluid overload with leg swelling and vascular congestion.. Rule out acute CHF Hypertension GI prophylaxis with Protonix IV daily. Plan: Patient will be continued on IV hydration with normal saline. Stout catheter is being placed by urology which is pending. Patient did have a very scant amount of dribbling Potassium remains elevated and be corrected will follow-up with repeat potassium level this afternoon. Nephrology following Ultrasound renal was ordered. Cardiology was consulted due to elevated troponin level. 2D echocardiogram was ordered. Patient denies any chest pain or palpitations Symptomatic management for nausea. Patient reports nausea is improved and continued on Zofran as needed and patient is tolerating diet Oncology consultation due to possible basal cell carcinoma on the nose. Due to multiple complex medical issues, prognosis is guarded Recommend PT/OT therapy evaluation as patient may possibly need ECF The impression and plan of care has been dictated by Blanca Miller, Nurse Practitioner as directed. Dr. Greer MD I have performed a history and examination and MDM of this patient, discussed the same with the dictator, and agree with the dictator's assessment and plan as written ,documented as a scribe. Based on total visit time, I have performed more than 50% of the visit. Objective - Vital Signs Vital signs: Vital Signs Temp 98.2 F 09/11/23 03:28 Pulse 77 09/11/23 03:28 Resp 16 09/11/23 03:28 BP 149/77 09/11/23 03:28 Pulse Ox 93 L 09/11/23 03:28 FiO2 Intake & Output 09/10/23 09/10/23 09/11/23 06:59 18:59 06:59 Intake Total 838.092 Output Total 15 5350 4600 Balance -15 -4511.908 -4600 Weight 83.2 kg 83.2 kg 75.6 kg Intake: Intake, IV Titration 240.092 Amount Heparin Sod,Pork in 0.45% 240.092 NaCl 25,000 unit In 0.45 % NaCl 1 250ml.bag @ 12 UNITS/KG/HR 8.981 mls/hr IV .Q24H [facility] Rx#: [id number] Oral 598 Output: Urine 15 5350 4600 Other: Voiding Method External Catheter Indwelling Catheter Indwelling Catheter # Voids 1 - Labs CBC & Chem 7: 09/10/23 09:16 09/10/23 15:43 Labs: Abnormal Lab Results - Last 24 Hours (Table) 09/10/23 09/10/23 09/10/23 Range/Units 08:45 08:45 09:16 WBC 10.8 H (3.8-10.6) k/uL RBC 3.86 L 3.65 L (4.30-5.90) m/uL Hgb 12.1 L 11.1 L (13.0-17.5) gm/dL Hct 37.3 L 35.7 L (39.0-53.0) % Neutrophils # 9.2 H 8.9 H (1.3-7.7) k/uL Lymphocytes # 0.6 L 0.7 L (1.0-4.8) k/uL PT (10.0-12.5) sec INR (<1.2) APTT (22.0-30.0) sec Potassium 6.1 H* (3.5-5.1) mmol/L Carbon Dioxide 18 L (22-30) mmol/L BUN 113 H* (9-20) mg/dL Creatinine 17.50 H* (0.66-1.25) mg/dL Calcium 8.1 L (8.4-10.2) mg/dL Phosphorus 9.2 H* (2.5-4.5) mg/dL Magnesium 2.4 H (1.6-2.3) mg/dL AST 72 H (17-59) U/L Troponin I (0.000-0.034) ng/mL Total Protein 6.2 L (6.3-8.2) g/dL Albumin 3.4 L (3.5-5.0) g/dL HDL Cholesterol (40.00-60.00) mg/dL U Random Total Protein (<12) mg/dL 09/10/23 09/10/23 09/10/23 Range/Units 09:16 09:16 09:16 WBC (3.8-10.6) k/uL RBC (4.30-5.90) m/uL Hgb (13.0-17.5) gm/dL Hct (39.0-53.0) % Neutrophils # (1.3-7.7) k/uL Lymphocytes # (1.0-4.8) k/uL PT 12.9 H (10.0-12.5) sec INR 1.2 H (<1.2) APTT 52.4 H (22.0-30.0) sec Potassium (3.5-5.1) mmol/L Carbon Dioxide (22-30) mmol/L BUN (9-20) mg/dL Creatinine (0.66-1.25) mg/dL Calcium (8.4-10.2) mg/dL Phosphorus (2.5-4.5) mg/dL Magnesium (1.6-2.3) mg/dL AST (17-59) U/L Troponin I 21.100 H* (0.000-0.034) ng/mL Total Protein (6.3-8.2) g/dL Albumin (3.5-5.0) g/dL HDL Cholesterol (40.00-60.00) mg/dL U Random Total Protein (<12) mg/dL 09/10/23 09/10/23 Range/Units 09:16 15:00 WBC (3.8-10.6) k/uL RBC (4.30-5.90) m/uL Hgb (13.0-17.5) gm/dL Hct (39.0-53.0) % Neutrophils # (1.3-7.7) k/uL Lymphocytes # (1.0-4.8) k/uL PT (10.0-12.5) sec INR (<1.2) APTT (22.0-30.0) sec Potassium (3.5-5.1) mmol/L Carbon Dioxide (22-30) mmol/L BUN (9-20) mg/dL Creatinine (0.66-1.25) mg/dL Calcium (8.4-10.2) mg/dL Phosphorus (2.5-4.5) mg/dL Magnesium (1.6-2.3) mg/dL AST (17-59) U/L Troponin I (0.000-0.034) ng/mL Total Protein (6.3-8.2) g/dL Albumin (3.5-5.0) g/dL HDL Cholesterol 31.00 L (40.00-60.00) mg/dL U Random Total Protein 34 H (<12) mg/dL
[2023-09-11] MEDS: atenoloL 50 MG TAB PO SCH (08:04)
[2023-09-11] MEDS: ASPIRIN 325 MG TAB PO SCH (08:04)
[2023-09-11] MEDS: ATORVASTATIN 80 MG TAB PO SCH (08:04)
[2023-09-11] MEDS: TAMSULOSIN 0.4 MG CAP.ER.24H PO SCH (08:04)
[2023-09-11] MEDS: ISOSORBIDE MONONITRATE ER 30 MG TAB.ER.24H PO SCH (08:04)
[2023-09-11] MEDS: PANTOPRAZOLE 40 MG/10 ML VIAL IV SCH (08:05)
[2023-09-11 09:13] LABS: HCT 36.1 % (39.0-53.0); HGB 11.4 gm/dL (13.0-17.5); MCH 30.5 pg (25.0-35.0); MCHC 31.6 g/dL (31.0-37.0); MCV 96.5 fL (80.0-100.0); Mean Platelet Volume 8.8; Platelet Count 255 k/uL (150-450); RBC 3.74 m/uL (4.30-5.90); RDW 12.4 % (11.5-15.5); WBC 13.1 k/uL (3.8-10.6)
[2023-09-11 09:25] LABS: ALT 31 U/L (4-49); AST 41 U/L (17-59); African American GFR (CKD) 9 (>60 ml/min/1.73 sqM); Albumin 3.3 g/dL (3.5-5.0); Alkaline Phosphatase 55 U/L (38-126); Anion Gap 13 mmol/L; Blood Urea Nitrogen 60 mg/dL (9-20); Carbon Dioxide 24 mmol/L (22-30); Chloride 110 mmol/L (98-107); Glucose 126 mg/dL (74-99); Magnesium 1.6 mg/dL (1.6-2.3); Non-African American GFR(CKD) 8 (>60 ml/min/1.73 sqM); Potassium 4.2 mmol/L (3.5-5.1); Sodium 147 mmol/L (137-145); Total Bilirubin 0.3 mg/dL (0.2-1.3); Total Protein 6.2 g/dL (6.3-8.2)
--- NOTE | 2023-09-11 09:28 | P.PN ---
Subjective Progress Note Date: 09/11/23 Principal diagnosis: Urinary retention, hydronephrosis The patient was admitted with renal failure. Imaging showed hydronephrosis due to urinary retention. He underwent epidural placement of a Stout catheter, with return of 1100 mL of urine. Urine output overnight has been excessive, consistent with postobstructive diuresis. The patient reports being thirsty but denies any discomfort. Objective - Vital Signs Vital signs: Vital Signs Temp 98.2 F 09/11/23 03:28 Pulse 77 09/11/23 03:28 Resp 16 09/11/23 03:28 BP 149/77 09/11/23 03:28 Pulse Ox 93 L 09/11/23 03:28 FiO2 Intake & Output 09/10/23 09/10/23 09/11/23 06:59 18:59 06:59 Intake Total 838.092 Output Total 15 5350 5600 Balance -15 -4511.908 -5600 Weight 83.2 kg 83.2 kg 75.6 kg Intake: Intake, IV Titration 240.092 Amount Heparin Sod,Pork in 0.45% 240.092 NaCl 25,000 unit In 0.45 % NaCl 1 250ml.bag @ 12 UNITS/KG/HR 8.981 mls/hr IV .Q24H [facility] Rx#: [id number] Oral 598 Output: Urine 15 5350 5600 Other: Voiding Method External Catheter Indwelling Catheter Indwelling Catheter # Voids 1 - Constitutional General appearance: Present: average body habitus, no acute distress - Gastrointestinal General gastrointestinal: Present: soft. Absent: distended, tenderness - Genitourinary Genitourinary Comment(s): - Normal phallus, normal testes. The Stout catheter is in place, draining clear yellow urine. ANDREI- Normal anal sphincter tone. No rectal mass. Prostate moderately enlarge d, smooth but firm. - Psychiatric Psychiatric: Present: A&O x's 3 - Labs CBC & Chem 7: 09/11/23 08:50 09/10/23 15:43 Labs: Abnormal Lab Results - Last 24 Hours (Table) 09/10/23 09/10/23 09/10/23 Range/Units 08:45 08:45 09:16 WBC 10.8 H (3.8-10.6) k/uL RBC 3.86 L 3.65 L (4.30-5.90) m/uL Hgb 12.1 L 11.1 L (13.0-17.5) gm/dL Hct 37.3 L 35.7 L (39.0-53.0) % Neutrophils # 9.2 H 8.9 H (1.3-7.7) k/uL Lymphocytes # 0.6 L 0.7 L (1.0-4.8) k/uL PT (10.0-12.5) sec INR (<1.2) APTT (22.0-30.0) sec Potassium 6.1 H* (3.5-5.1) mmol/L Carbon Dioxide 18 L (22-30) mmol/L BUN 113 H* (9-20) mg/dL Creatinine 17.50 H* (0.66-1.25) mg/dL Calcium 8.1 L (8.4-10.2) mg/dL Phosphorus 9.2 H* (2.5-4.5) mg/dL Magnesium 2.4 H (1.6-2.3) mg/dL AST 72 H (17-59) U/L Troponin I (0.000-0.034) ng/mL Total Protein 6.2 L (6.3-8.2) g/dL Albumin 3.4 L (3.5-5.0) g/dL HDL Cholesterol (40.00-60.00) mg/dL U Random Total Protein (<12) mg/dL 09/10/23 09/10/23 09/10/23 Range/Units 09:16 09:16 09:16 WBC (3.8-10.6) k/uL RBC (4.30-5.90) m/uL Hgb (13.0-17.5) gm/dL Hct (39.0-53.0) % Neutrophils # (1.3-7.7) k/uL Lymphocytes # (1.0-4.8) k/uL PT 12.9 H (10.0-12.5) sec INR 1.2 H (<1.2) APTT 52.4 H (22.0-30.0) sec Potassium (3.5-5.1) mmol/L Carbon Dioxide (22-30) mmol/L BUN (9-20) mg/dL Creatinine (0.66-1.25) mg/dL Calcium (8.4-10.2) mg/dL Phosphorus (2.5-4.5) mg/dL Magnesium (1.6-2.3) mg/dL AST (17-59) U/L Troponin I 21.100 H* (0.000-0.034) ng/mL Total Protein (6.3-8.2) g/dL Albumin (3.5-5.0) g/dL HDL Cholesterol (40.00-60.00) mg/dL U Random Total Protein (<12) mg/dL 09/10/23 09/10/23 Range/Units 09:16 15:00 WBC (3.8-10.6) k/uL RBC (4.30-5.90) m/uL Hgb (13.0-17.5) gm/dL Hct (39.0-53.0) % Neutrophils # (1.3-7.7) k/uL Lymphocytes # (1.0-4.8) k/uL PT (10.0-12.5) sec INR (<1.2) APTT (22.0-30.0) sec Potassium (3.5-5.1) mmol/L Carbon Dioxide (22-30) mmol/L BUN (9-20) mg/dL Creatinine (0.66-1.25) mg/dL Calcium (8.4-10.2) mg/dL Phosphorus (2.5-4.5) mg/dL Magnesium (1.6-2.3) mg/dL AST (17-59) U/L Troponin I (0.000-0.034) ng/mL Total Protein (6.3-8.2) g/dL Albumin (3.5-5.0) g/dL HDL Cholesterol 31.00 L (40.00-60.00) mg/dL U Random Total Protein 34 H (<12) mg/dL Assessment and Plan Assessment: The serum creatinine level has decreased to 6.06 (1) Urinary retention Current Visit: Yes Status: Acute Code(s): R33.9 - RETENTION OF URINE, UNSPECIFIED SNOMED Code(s): 681499237 (2) Hydronephrosis Current Visit: Yes Status: Acute Priority: High Code(s): N13.30 - UNSPECI FIED HYDRONEPHROSIS SNOMED Code(s): 16541943 (3) Acute renal failure (ARF) Current Visit: Yes Status: Acute Priority: High Code(s): N17.9 - ACUTE KID CYNTHIA FAILURE, UNSPECIFIED SNOMED Code(s): 62333903 Plan: - Continue Stout catheter drainage - Check PSA level - Continue to monitor renal function
--- NOTE | 2023-09-11 11:14 | P.PN ---
Subjective Progress Note Date: 09/11/23 History of present illness: This is an 78 year old male with past medical history of benign prostatic hype rtrophy presented to the hospital with difficulty over the past month with urination and frequency and nocturia. Patient was treated with Flomax but could not tolerate because of dizziness and stopped taking it. Patient was initially found to have a BUN of 113 and creatinine of 17. His baseline creatinine was normal. Troponin came back elevated initially 11.5 and repeat 21. Unclear etiology for this. EKG showed nonspecific T-wave inversions in the inferior leads. From a cardiac standpoint, patient's presentation suggested of non-ST elevated myocardial infarction in the recent past. Patient denied chest pain on presentation and continues to deny any chest pain, no neck pain or back pain and no arm pain. He denies having any shortness of breath. No lightheadedness or dizziness. The patient did have urethral dilation done by urology and Stout catheter placement in weight is down 8 kg. Echocardiogram reveals EF of 55-60%, mild MR, mild TR, mild pulmonary hypertension. Patient was noted overnight to have a new T-wave inversion. Plan is to evaluate for underlying coronary artery disease once renal failure has resolved. Repeat blood work reveals BUN 60 and creatinine 6.06. Telemetry is sinus rhythm with inverted T wave. Patient has been maintained on heparin drip and is currently on aspirin, atenolol 50 mg daily, atorvastatin 80 mg daily, Imdur 30 mg daily. Physical examination: Gen: This is an 78 year old male sitting up in bed and appears to be comfortable and in no acute distress. VS: reviewed Blood pressure 123/77, heart rate in the 70s and 80s. Pulse ox 96% on room air, afebrile. HEENT: Head is atraumatic, normocephalic. Pupils equal, round. Sclerae is anicteric. NECK: Supple. No JVD. . LUNGS: Clear to auscultation. No wheezes or rhonchi. No intercostal retractions. HEART: Regular rate and rhythm. No murmur. +S4 ABDOMEN: Soft No tenderness. EXTREMITIES: No pedal edema. No calf tenderness. NEUROLOGICAL: Patient is awake, alert and oriented x3. Assessment: Acute kidney injury secondary to obstructive uropathy with bilateral hydronephrosis Non-ST elevated myocardial infarction Plan: Continue current management for SARWAT Continue current cardiac medications Discontinue heparin drip and start subcu heparin Start patient on Plavix 75 mg daily Patient will have ischemic workup done once renal function has recovered Further recommendations to follow based upon clinical course Nurse practitioner note has been reviewed, I agree with documented findings and plan of care. Patient was seen and examined. Objective - Vital Signs Vital signs: Vital Signs Temp 98.0 F 09/11/23 07:53 Pulse 80 09/11/23 07:53 Resp 18 09/11/23 07:53 BP 123/77 09/11/23 07:53 Pulse Ox 96 09/11/23 07:53 FiO2 Intake & Output 09/10/23 09/11/23 09/11/23 18:59 06:59 18:59 Intake Total 838.092 Output Total 5350 5600 Balance -4511.908 -5600 Weight 83.2 kg 75.6 kg Intake: Intake, IV Titration 240.092 Amount Heparin Sod,Pork in 0.45% 240.092 NaCl 25,000 unit In 0.45 % NaCl 1 250ml.bag @ 12 UNITS/KG/HR 8.981 mls/hr IV .Q24H [facility] Rx#: [id number] Oral 598 Output: Urine 5350 5600 Other: Voiding Method Indwelling Catheter Indwelling Catheter - Labs CBC & Chem 7: 09/11/23 08:50 09/11/23 08:50 Labs: Abnormal Lab Results - Last 24 Hours (Table) 09/10/23 09/10/23 09/10/23 Range/Units 08:45 08:45 09:16 WBC 10.8 H (3.8-10.6) k/uL RBC 3.86 L 3.65 L (4.30-5.90) m/uL Hgb 12.1 L 11.1 L (13.0-17.5) gm/dL Hct 37.3 L 35.7 L (39.0-53.0) % Neutrophils # 9.2 H 8.9 H (1.3-7.7) k/uL Lymphocytes # 0.6 L 0.7 L (1.0-4.8) k/uL PT (10.0-12.5) sec INR (<1.2) APTT (22.0-30.0) sec Potassium 6.1 H* (3.5-5.1) mmol/L Carbon Dioxide 18 L (22-30) mmol/L BUN 113 H* (9-20) mg/dL Creatinine 17.50 H* (0.66-1.25) mg/dL Calcium 8.1 L (8.4-10.2) mg/dL Phosphorus 9.2 H* (2.5-4.5) mg/dL Magnesium 2.4 H (1.6-2.3) mg/dL AST 72 H (17-59) U/L Troponin I (0.000-0.034) ng/mL Total Protein 6.2 L (6.3-8.2) g/dL Albumin 3.4 L (3.5-5.0) g/dL HDL Cholesterol (40.00-60.00) mg/dL U Random Total Protein (<12) mg/dL 09/10/23 09/10/23 09/10/23 Range/Units 09:16 09:16 09:16 WBC (3.8-10.6) k/uL RBC (4.30-5.90) m/uL Hgb (13.0-17.5) gm/dL Hct (39.0-53.0) % Neutrophils # (1.3-7.7) k/uL Lymphocytes # (1.0-4.8) k/uL PT 12.9 H (10.0-12.5) sec INR 1.2 H (<1.2) APTT 52.4 H (22.0-30.0) sec Potassium (3.5-5.1) mmol/L Carbon Dioxide (22-30) mmol/L BUN (9-20) mg/dL Creatinine (0.66-1.25) mg/dL Calcium (8.4-10.2) mg/dL Phosphorus (2.5-4.5) mg/dL Magnesium (1.6-2.3) mg/dL AST (17-59) U/L Troponin I 21.100 H* (0.000-0.034) ng/mL Total Protein (6.3-8.2) g/dL Albumin (3.5-5.0) g/dL HDL Cholesterol (40.00-60.00) mg/dL U Random Total Protein (<12) mg/dL 09/10/23 09/10/23 Range/Units 09:16 15:00 WBC (3.8-10.6) k/uL RBC (4.30-5.90) m/uL Hgb (13.0-17.5) gm/dL Hct (39.0-53.0) % Neutrophils # (1.3-7.7) k/uL Lymphocytes # (1.0-4.8) k/uL PT (10.0-12.5) sec INR (<1.2) APTT (22.0-30.0) sec Potassium (3.5-5.1) mmol/L Carbon Dioxide (22-30) mmol/L BUN (9-20) mg/dL Creatinine (0.66-1.25) mg/dL Calcium (8.4-10.2) mg/dL Phosphorus (2.5-4.5) mg/dL Magnesium (1.6-2.3) mg/dL AST (17-59) U/L Troponin I (0.000-0.034) ng/mL Total Protein (6.3-8.2) g/dL Albumin (3.5-5.0) g/dL HDL Cholesterol 31.00 L (40.00-60.00) mg/dL U Random Total Protein 34 H (<12) mg/dL
[2023-09-11] MEDS: SODIUM CHLORIDE 0.9% 1,000 ML IV SCH (12:18)
[2023-09-11] MEDS: CLOPIDOGREL 75 MG TAB PO SCH (12:26)
--- NOTE | 2023-09-11 15:48 | P.PN ---
Subjective Progress Note Date: 09/11/23 78-year-old male with a past medical history of hypertension presents to ER with complaints of nausea and feeling like he has to gag. His symptoms have been present for the past 1 month. Patient also states that he has been having difficulty urinating which he thought was due to his enlarged prostate., Which has been present for the past few months. He also complains of frequent urination and he admits he has to go have a bowel movement. Patient also complaining of worsening leg swelling bilaterally. Patient has been having frequently acclamation for a long time. He has to wake up at least 5-6 times in the night. He does have a history of chronic diarrhea. Patient has been taking silver prerna oid/alternative medicine for years. He was also complaining lesion over his right side of the nose and has not follow-up with his primary care physician. Laboratory data showed WBC 12.6 hemoglobin 12.5 and platelets 302 Sodium 140 potassium 6.4 chloride 99 bicarb is 17 BUN 113 and creatinine 17.44 Blood sugar is 133, AST 78, ALT 37 and alk phos 69. Troponin 11.5 Urinalysis is negative for infection. Negative protein and pH 7.0. Influenza A, B, RSV and COVID-19 PCR nondetected. EKG showed sinus rhythm with nonspecific T wave abnormality. No evidence of peaked T waves. Chest x-ray showed correlate for COPD with superimposed CHF and pulmonary vascular congestion. Small bilateral pleural effusions with adjacent atelectasis or consolidation. Objective - Vital Signs Vital signs: Vital Signs Temp 98.0 F 09/11/23 12:00 Pulse 83 09/11/23 12:00 Resp 18 09/11/23 12:00 BP 102/55 09/11/23 12:00 Pulse Ox 97 09/11/23 12:00 FiO2 Intake & Output 09/10/23 09/11/23 09/11/23 18:59 06:59 18:59 Intake Total 838.092 480 Output Total 5350 5600 1900 Balance -4511.906 -7634 -5638 Weight 83.2 kg 75.6 kg Intake: Intake, IV Titration 240.092 Amount Heparin Sod,Pork in 0.45% 240.092 NaCl 25,000 unit In 0.45 % NaCl 1 250ml.bag @ 12 UNITS/KG/HR 8.981 mls/hr IV .Q24H [facility] Rx#: [id number] Oral 598 480 Output: Urine 5350 5600 1900 Other: Voiding Method Indwelling Catheter Indwelling Catheter Indwelling Catheter - Exam Patient is sitting up in the bed comfortably, no acute distress, awake alert and oriented.. HEENT: Normocephalic. Neck is supple. Pupils reactive. Nostrils clear. Oral cavity is moist. Skin lesion over the nose on the right side. Neck reveals no JVD, carotid bruits, or thyromegaly. CHEST EXAMINATION: Trachea is central. Symmetrical expansion. Bibasilar minimal crackles. No wheezing or rhonchi.. CARDIAC: Normal S1, S2 with no gallops. No murmurs ABDOMEN: Soft. Bowel sounds present. Nontender. No organomegaly. No abdominal bruits. Extremities: Bilateral 2+ pedal edema. No clubbing or cyanosis Neurologically awake, alert, oriented x3 with well-coordinated movements. No focal deficits noted Skin: No rash skin lesion noted on the nose, ashen color over the body. Psychiatric: Cooperative. Nonsuicidal, Musculoskeletal: No joint swelling or deformity. Normal range of motion. - Labs CBC & Chem 7: 09/11/23 08:50 09/11/23 08:50 Labs: Abnormal Lab Results - Last 24 Hours (Table) 09/10/23 09/10/23 09/11/23 Range/Units 09:16 15:00 08:50 WBC (3.8-10.6) k/uL RBC (4.30-5.90) m/uL Hgb (13.0-17.5) gm/dL Hct (39.0-53.0) % APTT 44.7 H (22.0-30.0) sec Sodium (137-145) mmol/L Chloride (98-107) mmol/L BUN (9-20) mg/dL Creatinine (0.66-1.25) mg/dL Glucose (74-99) mg/dL Calcium (8.4-10.2) mg/dL Total Protein (6.3-8.2) g/dL Albumin (3.5-5.0) g/dL HDL Cholesterol 31.00 L (40.00-60.00) mg/dL U Random Total Protein 34 H (<12) mg/dL 09/11/23 09/11/23 Range/Units 08:50 08:50 WBC 13.1 H (3.8-10.6) k/uL RBC 3.74 L (4.30-5.90) m/uL Hgb 11.4 L (13.0-17.5) gm/dL Hct 36.1 L (39.0-53.0) % APTT (22.0-30.0) sec Sodium 147 H (137-145) mmol/L Chloride 110 H (98-107) mmol/L BUN 60 H (9-20) mg/dL Creatinine 6.06 H (0.66-1.25) mg/dL Glucose 126 H (74-99) mg/dL Calcium 8.0 L (8.4-10.2) mg/dL Total Protein 6.2 L (6.3-8.2) g/dL Albumin 3.3 L (3.5-5.0) g/dL HDL Cholesterol (40.00-60.00) mg/dL U Random Total Protein (<12) mg/dL Assessment and Plan Assessment: Acute kidney injury due to possible obstructive uropathy and component of vasomotor nephropathy. Hyperkalemia secondary to kidney injury Anion gap metabolic acidosis Skin lesion noted on the nose, possible basal cell carcinoma Elevated troponin level likely due to kidney injury Fluid overload with leg swelling and vascular congestion.. Rule out acute CHF Hypertension GI prophylaxis with Protonix IV daily. Plan: Patient will be continued on IV hydration with normal saline. Stout catheter is being placed by urology which is pending. Patient did have a very scant amount of dribbling Potassium remains elevated and be corrected will follow-up with repeat potassium level this afternoon. Nephrology following Ultrasound renal was ordered. Cardiology was consulted due to elevated troponin level. 2D echocardiogram was ordered. Patient denies any chest pain or palpitations Symptomatic management for nausea. Patient reports nausea is improved and continued on Zofran as needed and patient is tolerating diet Oncology consultation due to possible basal cell carcinoma on the nose. Due to multiple complex medical issues, prognosis is guarded Recommend PT/OT therapy evaluation as patient may possibly need ECF
--- NOTE | 2023-09-11 17:32 | P.PN ---
Subjective Patient is seen for f/u for SARWAT, mostly obstructive uropathy. S/p gamboa catheter placement by Urology with UOP of 5.1L for 24 hrs. No significant complaints today. Creatinine decreased to 6.0 today. Maintained on IVF. Objective - Vital Signs Vital signs: Vital Signs Temp 98.0 F 09/11/23 12:00 Pulse 82 09/11/23 16:00 Resp 16 09/11/23 16:00 BP 120/65 09/11/23 16:00 Pulse Ox 95 09/11/23 16:00 FiO2 Intake & Output 09/10/23 09/11/23 09/11/23 18:59 06:59 18:59 Intake Total 838.092 598 Output Total 5350 5600 2900 Balance -4511.908 -5600 -2302 Weight 83.2 kg 75.6 kg Intake: Intake, IV Titration 240.092 Amount Heparin Sod,Pork in 0.45% 240.092 NaCl 25,000 unit In 0.45 % NaCl 1 250ml.bag @ 12 UNITS/KG/HR 8.981 mls/hr IV .Q24H [facility] Rx#: [id number] Oral 598 598 Output: Urine 5350 5600 2900 Other: Voiding Method Indwelling Catheter Indwelling Catheter Indwelling Catheter - Exam Patient is awake, comfortable, in no acute distress Alert oriented 3 No asterixis noted Examination of the heart S1 and S2, no pericardial rub Examination of the lungs bilateral breath sounds are heard Abdomen is soft nontender Examination of lower extremities shows 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 - Labs CBC & Chem 7: 09/11/23 08:50 09/11/23 08:50 Labs: Abnormal Lab Results - Last 24 Hours (Table) 09/10/23 09/11/23 09/11/23 Range/Units 09:16 08:50 08:50 WBC 13.1 H (3.8-10.6) k/uL RBC 3.74 L (4.30-5.90) m/uL Hgb 11.4 L (13.0-17.5) gm/dL Hct 36.1 L (39.0-53.0) % APTT 44.7 H (22.0-30.0) sec Sodium (137-145) mmol/L Chloride (98-107) mmol/L BUN (9-20) mg/dL Creatinine (0.66-1.25) mg/dL Glucose (74-99) mg/dL Calcium (8.4-10.2) mg/dL Total Protein (6.3-8.2) g/dL Albumin (3.5-5.0) g/dL HDL Cholesterol 31.00 L (40.00-60.00) mg/dL 09/11/23 Range/Units 08:50 WBC (3.8-10.6) k/uL RBC (4.30-5.90) m/uL Hgb (13.0-17.5) gm/dL Hct (39.0-53.0) % APTT (22.0-30.0) sec Sodium 147 H (137-145) mmol/L Chloride 110 H (98-107) mmol/L BUN 60 H (9-20) mg/dL Creatinine 6.06 H (0.66-1.25) mg/dL Glucose 126 H (74-99) mg/dL Calcium 8.0 L (8.4-10.2) mg/dL Total Protein 6.2 L (6.3-8.2) g/dL Albumin 3.3 L (3.5-5.0) g/dL HDL Cholesterol (40.00-60.00) mg/dL Assessment and Plan Assessment: 1. Acute kidney injury secondary to obstructive uropathy with bilateral hydronephrosis. Gamboa catheter placed by urology. Previous creatinine 0.8 mg/dL in December 2022. Patient is currently fairly asymptomatic therefore I we will hold off on dialysis. UA is completely benign. 2. BPH with obstructive uropathy 3. Hyperkalemia associated with acute kidney injury and obstructive uropathy, improved with relief of obstruction 4. Non-ST elevation LA being followed by cardiology 5. Anion gap metabolic acidosis secondary to his severe acute kidney injury 6. Hyperphosphatemia associated with acute kidney injury, expect improvement with improving renal function. Plan: Continue with IV fluids Change to 0.45 NS Monitor for postobstructive diuresis and hematuria from bladder decompression. Repeat labs in a.m. Continue to hold dialysis.
[2023-09-11] MEDS: SODIUM CHLORIDE 0.45% 1,000 ML IV SCH (18:11)
[2023-09-11] MEDS: MELATONIN 5 MG TABLET PO SCH (20:01)
[2023-09-11] MEDS: SENNOSIDES 8.6 MG TAB PO PRN (20:01)
[2023-09-12] MEDS: SODIUM CHLORIDE 0.45% 1,000 ML IV SCH ×2 (06:29→19:30)
[2023-09-12] MEDS: PANTOPRAZOLE 40 MG TABLET PO SCH (06:29)
[2023-09-12 09:08] LABS: Basophils % (A) 0 %; Eosinophils # (A) 0.2 k/uL (0-0.7); Eosinophils % (A) 2 %; HCT 34.9 % (39.0-53.0); HGB 11.1 gm/dL (13.0-17.5); Hypochromasia Slight; Lymphocytes # (A) 1.1 k/uL (1.0-4.8); Lymphocytes % (A) 11 %; MCH 30.7 pg (25.0-35.0); MCHC 31.7 g/dL (31.0-37.0); MCV 96.9 fL (80.0-100.0); Monocytes # (A) 0.6 k/uL (0-1.0); Monocytes % (A) 6 %; Neutrophils # (A) 7.8 k/uL (1.3-7.7); Neutrophils % (A) 80 %; Platelet Count 247 k/uL (150-450); WBC 9.8 k/uL (3.8-10.6)
[2023-09-12] MEDS: TAMSULOSIN 0.4 MG CAP.ER.24H PO SCH (09:08)
[2023-09-12] MEDS: ASPIRIN 81 MG PO SCH (09:08)
[2023-09-12] MEDS: atenoloL 50 MG TAB PO SCH (09:09)
[2023-09-12] MEDS: ISOSORBIDE MONONITRATE ER 30 MG TAB.ER.24H PO SCH (09:09)
[2023-09-12] MEDS: ATORVASTATIN 80 MG TAB PO SCH (09:09)
[2023-09-12] MEDS: CLOPIDOGREL 75 MG TAB PO SCH (09:09)
[2023-09-12] MEDS: SENNOSIDES 8.6 MG TAB PO PRN (09:17)
[2023-09-12 09:19] LABS: African American GFR (CKD) 31 (>60 ml/min/1.73 sqM); Anion Gap 11 mmol/L; Blood Urea Nitrogen 27 mg/dL (9-20); Calcium 8.1 mg/dL (8.4-10.2); Carbon Dioxide 21 mmol/L (22-30); Chloride 112 mmol/L (98-107); Glucose 156 mg/dL (74-99); Non-African American GFR(CKD) 27 (>60 ml/min/1.73 sqM); Potassium 3.9 mmol/L (3.5-5.1); Sodium 144 mmol/L (137-145)
--- NOTE | 2023-09-12 11:05 | P.PN ---
Subjective Progress Note Date: 09/12/23 History of present illness: This is an 78 year old male with past medical history of benign prostatic hype rtrophy presented to the hospital with difficulty over the past month with urination and frequency and nocturia. Patient was treated with Flomax but could not tolerate because of dizziness and stopped taking it. Patient was initially found to have a BUN of 113 and creatinine of 17. His baseline creatinine was normal. Troponin came back elevated initially 11.5 and repeat 21. Unclear etiology for this. EKG showed nonspecific T-wave inversions in the inferior leads. From a cardiac standpoint, patient's presentation suggested of non-ST elevated myocardial infarction in the recent past. Patient denied chest pain on presentation and continues to deny any chest pain, no neck pain or back pain and no arm pain. He denies having any shortness of breath. No lightheadedness or dizziness. The patient did have urethral dilation done by urology and Stout catheter placement in weight is down 8 kg. Echocardiogram reveals EF of 55-60%, mild MR, mild TR, mild pulmonary hypertension. Patient was noted overnight to have a new T-wave inversion. Plan is to evaluate for underlying coronary artery disease once renal failure has resolved. Repeat blood work reveals BUN 60 and creatinine 6.06. Telemetry is sinus rhythm with inverted T wave. Patient has been maintained on heparin drip and is currently on aspirin, atenolol 50 mg daily, atorvastatin 80 mg daily, Imdur 30 mg daily. 09/12 yesterday we discontinued heparin drip and started patient on Plavix. His blood pressure is 134/74, heart rate is in the 80s, sinus rhythm, pulse ox 99% on room air. Patient continues to deny having any chest pain, pressure, tightness. Repeat BUN 27 creatinine 2.22. Physical examination: Gen: This is an 78 year old male sitting up in bed and appears to be comfortable and in no acute distress. VS: reviewed HEENT: Head is atraumatic, normocephalic. Pupils equal, round. Sclerae is anicteric. NECK: Supple. No JVD. . LUNGS: Clear to auscultation. No wheezes or rhonchi. No intercostal retract ions. HEART: Regular rate and rhythm. No murmur. +S4 ABDOMEN: Soft No tenderness. EXTREMITIES: No pedal edema. No calf tenderness. NEUROLOGICAL: Patient is awake, alert and oriented x3. Assessment: Acute kidney injury secondary to obstructive uropathy with bilateral hydronephrosis Non-ST elevated myocardial infarction Plan: Continue current management for SARWAT Continue current cardiac medications Continue subcu heparin Continue Plavix 75 mg daily Patient will have ischemic workup done once renal function has recovered Further recommendations to follow based upon clinical course Nurse practitioner note has been reviewed, I agree with documented findings and plan of care. Patient was seen and examined. Objective - Vital Signs Vital signs: Vital Signs Temp 98 F 09/11/23 20:00 Pulse 89 09/12/23 04:00 Resp 18 09/12/23 04:00 BP 134/74 09/12/23 04:00 Pulse Ox 99 09/12/23 04:00 FiO2 Intake & Output 09/11/23 09/12/23 09/12/23 18:59 06:59 18:59 Intake Total 716 Output Total 2900 2550 Balance -2184 -2550 Intake: Oral 716 Output: Urine 2900 2550 Other: Voiding Method Indwelling Catheter Indwelling Catheter - Labs CBC & Chem 7: 09/12/23 08:03 09/12/23 08:03 Labs: Abnormal Lab Results - Last 24 Hours (Table) 09/11/23 09/11/23 09/11/23 Range/Units 08:50 08:50 08:50 WBC 13.1 H (3.8-10.6) k/uL RBC 3.74 L (4.30-5.90) m/uL Hgb 11.4 L (13.0-17.5) gm/dL Hct 36.1 L (39.0-53.0) % APTT 44.7 H (22.0-30.0) sec Sodium 147 H (137-145) mmol/L Chloride 110 H (98-107) mmol/L BUN 60 H (9-20) mg/dL Creatinine 6.06 H (0.66-1.25) mg/dL Glucose 126 H (74-99) mg/dL Calcium 8.0 L (8.4-10.2) mg/dL Total Protein 6.2 L (6.3-8.2) g/dL Albumin 3.3 L (3.5-5.0) g/dL
--- NOTE | 2023-09-12 11:14 | P.PN ---
Subjective Patient is seen for f/u for SARWAT, mostly obstructive uropathy. S/p gamboa catheter placement by Urology. Patient has significant postobstructive diuresis with 24-hour urine output documented at 10.9 L Creatinine decreased to 2.2 today. Maintained on IVF. Complaining of dry mouth Objective - Vital Signs Vital signs: Vital Signs Temp 98.4 F 09/12/23 08:15 Pulse 93 09/12/23 08:15 Resp 17 09/12/23 08:15 BP 126/58 09/12/23 08:15 Pulse Ox 98 09/12/23 08:15 FiO2 Intake & Output 09/11/23 09/12/23 09/12/23 18:59 06:59 18:59 Intake Total 716 Output Total 2900 2550 1500 Balance -2184 -2550 -1500 Intake: Oral 716 Output: Urine 2900 2550 1500 Straight 1500 Other: Voiding Method Indwelling Catheter Indwelling Catheter - Exam Patient is awake, comfortable, in no acute distress Facial discoloration is improved today Alert oriented 3 Examination of the heart S1 and S2, no pericardial rub Examination of the lungs bilateral breath sounds are heard Abdomen is soft nontender Examination of lower extremities shows 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 Acute kidney injury secondary to obstructive uropathy with bilateral hydronephrosis. Gamboa catheter placed by urology. Previous creatinine 0.8 mg/dL in December 2022. Significant postobstructive diuresis noted UA is completely benign. 2. BPH with obstructive uropathy 3. Hyperkalemia associated with acute kidney injury and obstructive uropathy, improved with relief of obstruction 4. Non-ST elevation VT being followed by cardiology 5. Anion gap metabolic acidosis secondary to his severe acute kidney injury 6. Hyperphosphatemia associated with acute kidney injury, expect improvement with improving renal function. Plan: Continue with IV fluids, increase rate Repeat labs in a.m. Encourage increased oral intake
--- NOTE | 2023-09-12 11:19 | P.PN ---
Subjective Progress Note Date: 09/12/23 Principal diagnosis: Urinary retention, hydronephrosis The patient was admitted with renal failure. Imaging showed hydronephrosis due to urinary retention. He underwent placement of a Stout catheter, with return of 1100 mL of urine. Urine output since then has been excessive, consistent with postobstructive diuresis. The patient denies any discomfort. Objective - Vital Signs Vital signs: Vital Signs Temp 98.4 F 09/12/23 08:15 Pulse 93 09/12/23 08:15 Resp 17 09/12/23 08:15 BP 126/58 09/12/23 08:15 Pulse Ox 98 09/12/23 08:15 FiO2 Intake & Output 09/11/23 09/12/23 09/12/23 18:59 06:59 18:59 Intake Total 716 Output Total 2900 2550 1500 Balance -2184 -2550 -1500 Intake: Oral 716 Output: Urine 2900 2550 1500 Straight 1500 Other: Voiding Method Indwelling Catheter Indwelling Catheter - Constitutional General appearance: Present: average body habitus, no acute distress - Genitourinary Genitourinary Comment(s): Stout catheter is draining clear yellow urine. - Psychiatric Psychiatric: Present: A&O x's 3 - Labs CBC & Chem 7: 09/12/23 08:03 09/12/23 08:03 Labs: Abnormal Lab Results - Last 24 Hours (Table) 09/12/23 09/12/23 Range/Units 08:03 08:03 RBC 3.60 L (4.30-5.90) m/uL Hgb 11.1 L (13.0-17.5) gm/dL Hct 34.9 L (39.0-53.0) % Neutrophils # 7.8 H (1.3-7.7) k/uL Chloride 112 H (98-107) mmol/L Carbon Dioxide 21 L (22-30) mmol/L BUN 27 H (9-20) mg/dL Creatinine 2.22 H (0.66-1.25) mg/dL Glucose 156 H (74-99) mg/dL Calcium 8.1 L (8.4-10.2) mg/dL Assessment and Plan Assessment: The serum creatinine level has decreased to 2.22 with Stout catheter drainage. His PSA level was 12.9 in November 2019. At the time of the difficult Stout catheter placement, the level of obstruction appeared to be the prostate and I am concerned that Mr. Pichardo may have urinary retention secondary to locally advanced prostate cancer. (1) Urinary retention Current Visit: Yes Status: Acute Code(s): R33.9 - RETENTION OF URINE, UNSPECIFIED SNOMED Code(s): 552550099 (2) Hydronephrosis Current Visit: Yes Status: Acute Priority: High Code(s): N13.30 - UNSPECIFIED HYDRONEPHROSIS SNOMED Code(s): 61924259 (3) Acute renal failure (ARF) Current Visit: Yes Status: Acute Priority: High Code(s): N17.9 - ACUTE KIDNEY FAILURE, UNSPECIFIED SNOMED Code(s): 07816184 Plan: - Continue Stout catheter drainage - Await repeat PSA level - Continue to monitor renal function
--- NOTE | 2023-09-12 16:42 | P.PN ---
Subjective Progress Note Date: 09/12/23 78-year-old male with a past medical history of hypertension presents to ER with complaints of nausea and feeling like he has to gag. His symptoms have been present for the past 1 month. Patient also states that he has been having difficulty urinating which he thought was due to his enlarged prostate., Which has been present for the past few months. He also complains of frequent urination and he admits he has to go have a bowel movement. Patient also complaining of worsening leg swelling bilaterally. Patient has been having frequently acclamation for a long time. He has to wake up at least 5-6 times in the night. He does have a history of chronic diarrhea. Patient has been taking silver prerna oid/alternative medicine for years. He was also complaining lesion over his right side of the nose and has not follow-up with his primary care physician. Laboratory data showed WBC 12.6 hemoglobin 12.5 and platelets 302 Sodium 140 potassium 6.4 chloride 99 bicarb is 17 BUN 113 and creatinine 17.44 Blood sugar is 133, AST 78, ALT 37 and alk phos 69. Troponin 11.5 Urinalysis is negative for infection. Negative protein and pH 7.0. Influenza A, B, RSV and COVID-19 PCR nondetected. EKG showed sinus rhythm with nonspecific T wave abnormality. No evidence of peaked T waves. Chest x-ray showed correlate for COPD with superimposed CHF and pulmonary vascular congestion. Small bilateral pleural effusions with adjacent atelectasis or consolidation. 09/12/2023 Patient is seen and evaluated in room at bedside; patient denies any specific complaints; all of patient's questions were answered in great detail -- vital signs are reviewed and reveal blood pressure 134/74, pulse 80 and O2 saturation of 99% on room air Blood work reveals WBC of 9.8, hemoglobin of 11.1 and platelet count of 247, sodium 141, potassium 3.9, BUN/creatinine of 27/2.22 down from 6.6 yesterday - Cardiology following; heparin has been discontinued and patient was aspirin and Plavix - Patient underwent Stout catheter placement by urology; patient has been excessive consistent post obstructive diuresis Objective - Vital Signs Vital signs: Vital Signs Temp 98.4 F 09/12/23 08:15 Pulse 93 09/12/23 08:15 Resp 17 09/12/23 08:15 BP 126/58 09/12/23 08:15 Pulse Ox 98 09/12/23 08:15 FiO2 Intake & Output 09/11/23 09/12/23 09/12/23 18:59 06:59 18:59 Intake Total 716 Output Total 2900 2550 1500 Balance -2184 -2550 -1500 Intake: Oral 716 Output: Urine 2900 2550 1500 Straight 1500 Other: Voiding Method Indwelling Catheter Indwelling Catheter - Exam Patient is sitting up in the bed comfortably, no acute distress, awake alert and oriented.. HEENT: Normocephalic. Neck is supple. Pupils reactive. Nostrils clear. Oral cavity is moist. Skin lesion over the nose on the right side. Neck reveals no JVD, carotid bruits, or thyromegaly. CHEST EXAMINATION: Trachea is central. Symmetrical expansion. Bibasilar minimal crackles. No wheezing or rhonchi.. CARDIAC: Normal S1, S2 with no gallops. No murmurs ABDOMEN: Soft. Bowel sounds present. Nontender. No organomegaly. No abdominal bruits. Extremities: Bilateral 2+ pedal edema. No clubbing or cyanosis Neurologically awake, alert, oriented x3 with well-coordinated movements. No focal deficits noted Skin: No rash skin lesion noted on the nose, ashen color over the body. Psychiatric: Cooperative. Nonsuicidal, Musculoskeletal: No joint swelling or deformity. Normal range of motion. - Labs CBC & Chem 7: 09/12/23 08:03 09/12/23 08:03 Labs: Abnormal Lab Results - Last 24 Hours (Table) 09/12/23 09/12/23 Range/Units 08:03 08:03 RBC 3.60 L (4.30-5.90) m/uL Hgb 11.1 L (13.0-17.5) gm/dL Hct 34.9 L (39.0-53.0) % Neutrophils # 7.8 H (1.3-7.7) k/uL Chloride 112 H (98-107) mmol/L Carbon Dioxide 21 L (22-30) mmol/L BUN 27 H (9-20) mg/dL Creatinine 2.22 H (0.66-1.25) mg/dL Glucose 156 H (74-99) mg/dL Calcium 8.1 L (8.4-10.2) mg/dL Assessment and Plan Assessment: Acute kidney injury due to possible obstructive uropathy and component of vasomotor nephropathy. Hyperkalemia secondary to kidney injury Anion gap metabolic acidosis Skin lesion noted on the nose, possible basal cell carcinoma Elevated troponin level likely due to kidney injury Fluid overload with leg swelling and vascular congestion.. Rule out acute CHF Hypertension GI prophylaxis with Protonix IV daily. Plan: Patient will be continued on IV hydration with normal saline. Stout catheter is being placed by urology which is pending. Patient did have a very scant amount of dribbling Potassium remains elevated and be corrected will follow-up with repeat potassium level this afternoon. Nephrology following Ultrasound renal was ordered. Cardiology was consulted due to elevated troponin level. 2D echocardiogram was ordered. Patient denies any chest pain or palpitations Symptomatic management for nausea. Patient reports nausea is improved and continued on Zofran as needed and patient is tolerating diet Oncology consultation due to possible basal cell carcinoma on the nose. Due to multiple complex medical issues, prognosis is guarded Recommend PT/OT therapy evaluation as patient may possibly need ECF
[2023-09-12] MEDS: HEPARIN SODIUM,PORCINE 5,000 UNIT/ML 1 ML VIAL SQ SCH (20:08)
[2023-09-12] MEDS: MELATONIN 5 MG TABLET PO SCH (20:09)
[2023-09-13] MEDS: PANTOPRAZOLE 40 MG TABLET PO SCH (05:48)
[2023-09-13] MEDS: SODIUM CHLORIDE 0.45% 1,000 ML IV SCH ×2 (05:48→18:33)
[2023-09-13 07:04] LABS: Basophils % (A) 0 %; Eosinophils # (A) 0.3 k/uL (0-0.7); Eosinophils % (A) 3 %; HCT 33.7 % (39.0-53.0); HGB 10.7 gm/dL (13.0-17.5); Lymphocytes # (A) 1.1 k/uL (1.0-4.8); Lymphocytes % (A) 12 %; MCH 30.7 pg (25.0-35.0); MCHC 31.8 g/dL (31.0-37.0); MCV 96.5 fL (80.0-100.0); Mean Platelet Volume 8.8; Monocytes # (A) 0.5 k/uL (0-1.0); Monocytes % (A) 5 %; Neutrophils # (A) 7.6 k/uL (1.3-7.7); Neutrophils % (A) 78 %; Platelet Count 241 k/uL (150-450); RBC 3.49 m/uL (4.30-5.90); WBC 9.7 k/uL (3.8-10.6)
[2023-09-13 07:21] LABS: African American GFR (CKD) 54 (>60 ml/min/1.73 sqM); Anion Gap 10 mmol/L; Blood Urea Nitrogen 19 mg/dL (9-20); Calcium 8.1 mg/dL (8.4-10.2); Carbon Dioxide 21 mmol/L (22-30); Chloride 111 mmol/L (98-107); Glucose 105 mg/dL (74-99); Non-African American GFR(CKD) 47 (>60 ml/min/1.73 sqM); Sodium 142 mmol/L (137-145)
[2023-09-13] MEDS: TAMSULOSIN 0.4 MG CAP.ER.24H PO SCH (09:32)
[2023-09-13] MEDS: CLOPIDOGREL 75 MG TAB PO SCH (09:32)
[2023-09-13] MEDS: ISOSORBIDE MONONITRATE ER 30 MG TAB.ER.24H PO SCH (09:32)
[2023-09-13] MEDS: ASPIRIN 81 MG PO SCH (09:32)
[2023-09-13] MEDS: ATORVASTATIN 80 MG TAB PO SCH (09:32)
[2023-09-13] MEDS: atenoloL 50 MG TAB PO SCH (09:32)
[2023-09-13] MEDS: HEPARIN SODIUM,PORCINE 5,000 UNIT/ML 1 ML VIAL SQ SCH ×2 (09:33→20:10)
[2023-09-13] MEDS: SENNOSIDES 8.6 MG TAB PO PRN ×2 (09:36→18:33)
--- NOTE | 2023-09-13 11:06 | P.PN ---
Subjective Patient is seen for f/u for SARWAT, mostly obstructive uropathy. S/p gamboa catheter placement by Urology. Patient has significant postobstructive diuresis with 24-hour urine output documented at 10.9 L, now decreased to 5 L Creatinine decreased to 1.4 today. Maintained on IVF. Complaining of dry mouth and lightheadedness this morning on trying to get out of bed Objective - Vital Signs Vital signs: Vital Signs Temp 98.0 F 09/13/23 08:00 Pulse 96 09/13/23 08:00 Resp 17 09/13/23 08:00 BP 144/69 09/13/23 08:00 Pulse Ox 98 09/13/23 08:00 FiO2 Intake & Output 09/12/23 09/13/23 09/13/23 18:59 06:59 18:59 Intake Total 420 Output Total 2900 2100 1200 Balance -2480 -2100 -1200 Intake: Oral 420 Output: Urine 2900 2100 1200 Straight 1500 1200 Other: Voiding Method Indwelling Catheter Indwelling Catheter Indwelling Catheter - Exam Patient is awake, comfortable, in no acute distress Facial discoloration is improved today Alert oriented 3 Examination of the heart S1 and S2, no pericardial rub Examination of the lungs bilateral breath sounds are heard Abdomen is soft nontender Examination of lower extremities shows no edema [employer] exam grossly intact - Labs CBC & Chem 7: 09/13/23 06:29 09/13/23 06:29 Labs: Abnormal Lab Results - Last 24 Hours (Table) 09/13/23 09/13/23 Range/Units 06:29 06:29 RBC 3.49 L (4.30-5.90) m/uL Hgb 10.7 L (13.0-17.5) gm/dL Hct 33.7 L (39.0-53.0) % Chloride 111 H (98-107) mmol/L Carbon Dioxide 21 L (22-30) mmol/L Creatinine 1.41 H (0.66-1.25) mg/dL Glucose 105 H (74-99) mg/dL Calcium 8.1 L (8.4-10.2) mg/dL Assessment and Plan Assessment: 1. Acute kidney injury secondary to obstructive uropathy with bilateral hydronephrosis. Gamboa catheter placed by urology. Previous creatinine 0.8 mg/dL in December 2022. Significant postobstructive diuresis noted UA is completely benign. 2. BPH with obstructive uropathy 3. Hyperkalemia associated with acute kidney injury and obstructive uropathy, improved with relief of obstruction 4. Non-ST elevation MS being followed by cardiology 5. Anion gap metabolic acidosis secondary to his severe acute kidney injury 6. Hyperphosphatemia associated with acute kidney injury, expect improvement with improving renal function. Plan: Continue with IV fluids, increase rate Repeat labs in a.m. Encourage increased oral intake Check orthostatics Decrease dose of Tenormin if evidence of orthostatic hypotension.
--- NOTE | 2023-09-13 12:17 | P.PN ---
Subjective Progress Note Date: 09/13/23 History of present illness: This is an 78 year old male with past medical history of benign prostatic hype rtrophy presented to the hospital with difficulty over the past month with urination and frequency and nocturia. Patient was treated with Flomax but could not tolerate because of dizziness and stopped taking it. Patient was initially found to have a BUN of 113 and creatinine of 17. His baseline creatinine was normal. Troponin came back elevated initially 11.5 and repeat 21. Unclear etiology for this. EKG showed nonspecific T-wave inversions in the inferior leads. From a cardiac standpoint, patient's presentation suggested of non-ST elevated myocardial infarction in the recent past. Patient denied chest pain on presentation and continues to deny any chest pain, no neck pain or back pain and no arm pain. He denies having any shortness of breath. No lightheadedness or dizziness. The patient did have urethral dilation done by urology and Stout catheter placement in weight is down 8 kg. Echocardiogram reveals EF of 55-60%, mild MR, mild TR, mild pulmonary hypertension. Patient was noted overnight to have a new T-wave inversion. Plan is to evaluate for underlying coronary artery disease once renal failure has resolved. Repeat blood work reveals BUN 60 and creatinine 6.06. Telemetry is sinus rhythm with inverted T wave. Patient has been maintained on heparin drip and is currently on aspirin, atenolol 50 mg daily, atorvastatin 80 mg daily, Imdur 30 mg daily. 09/12 yesterday we discontinued heparin drip and started patient on Plavix. His blood pressure is 134/74, heart rate is in the 80s, sinus rhythm, pulse ox 99% on room air. Patient continues to deny having any chest pain, pressure, tightness. Repeat BUN 27 creatinine 2.22. 09/13 Patient continues to be chest pain-free. Heart rate is running in the 80s, systolic blood pressure 111-143. Kidney function continues to improve with BUN 19 creatinine 1.41. Patient does state that he was lightheaded when he got up out of bed. No other concerns. He states that his discharge plan is for rehab tomorrow at [facility]. Physical examination: Gen: This is an 78 year old male sitting up in bed and appears to be comfortable and in no acute distress. VS: reviewed HEENT: Head is atraumatic, normocephalic. Pupils equal, round. Sclerae is anicteric. NECK: Supple. No JVD. . LUNGS: Clear to auscultation. No wheezes or rhonchi. No intercostal retractions. HEART: Regular rate and rhythm. No murmur. +S4 ABDOMEN: Soft No tenderness. EXTREMITIES: No pedal edema. No calf tenderness. NEUROLOGICAL: Patient is awake, alert and oriented x3. Assessment: Acute kidney injury secondary to obstructive uropathy with bilateral hydronephrosis Non-ST elevated myocardial infarction Plan: Continue current management for SARWAT Continue current cardiac medications Continue subcu heparin Continue Plavix 75 mg daily Patient is cleared for discharge from cardiology may follow-up in the office with Dr. Víctor John in 2 weeks for ischemic cardiac workup. Nurse practitioner note has been reviewed, I agree with documented findings and plan of care. Patient was seen and examined. Objective - Vital Signs Vital signs: Vital Signs Temp 97.9 F 09/12/23 20:00 Pulse 83 09/13/23 04:00 Resp 18 09/13/23 04:00 BP 143/67 09/13/23 04:00 Pulse Ox 98 09/13/23 04:00 FiO2 Intake & Output 09/12/23 09/13/23 09/13/23 18:59 06:59 18:59 Intake Total 420 Output Total 2900 2100 Balance -2480 -2100 Intake: Oral 420 Output: Urine 2900 2100 Straight 1500 Other: Voiding Method Indwelling Catheter Indwelling Catheter - Labs CBC & Chem 7: 09/13/23 06:29 09/13/23 06:29 Labs: Abnormal Lab Results - Last 24 Hours (Table) 09/12/23 09/12/23 09/13/23 Range/Units 08:03 08:03 06:29 RBC 3.60 L 3.49 L (4.30-5.90) m/uL Hgb 11.1 L 10.7 L (13.0-17.5) gm/dL Hct 34.9 L 33.7 L (39.0-53.0) % Neutrophils # 7.8 H (1.3-7.7) k/uL Chloride 112 H (98-107) mmol/L Carbon Dioxide 21 L (22-30) mmol/L BUN 27 H (9-20) mg/dL Creatinine 2.22 H (0.66-1.25) mg/dL Glucose 156 H (74-99) mg/dL Calcium 8.1 L (8.4-10.2) mg/dL 09/13/23 Range/Units 06:29 RBC (4.30-5.90) m/uL Hgb (13.0-17.5) gm/dL Hct (39.0-53.0) % Neutrophils # (1.3-7.7) k/uL Chloride 111 H (98-107) mmol/L Carbon Dioxide 21 L (22-30) mmol/L BUN (9-20) mg/dL Creatinine 1.41 H (0.66-1.25) mg/dL Glucose 105 H (74-99) mg/dL Calcium 8.1 L (8.4-10.2) mg/dL
--- NOTE | 2023-09-13 15:52 | P.PN ---
Subjective Progress Note Date: 09/13/23 78-year-old male with a past medical history of hypertension presents to ER with complaints of nausea and feeling like he has to gag. His symptoms have been present for the past 1 month. Patient also states that he has been having difficulty urinating which he thought was due to his enlarged prostate., Which has been present for the past few months. He also complains of frequent urination and he admits he has to go have a bowel movement. Patient also complaining of worsening leg swelling bilaterally. Patient has been having frequently acclamation for a long time. He has to wake up at least 5-6 times in the night. He does have a history of chronic diarrhea. Patient has been taking silver prerna oid/alternative medicine for years. He was also complaining lesion over his right side of the nose and has not follow-up with his primary care physician. Laboratory data showed WBC 12.6 hemoglobin 12.5 and platelets 302 Sodium 140 potassium 6.4 chloride 99 bicarb is 17 BUN 113 and creatinine 17.44 Blood sugar is 133, AST 78, ALT 37 and alk phos 69. Troponin 11.5 Urinalysis is negative for infection. Negative protein and pH 7.0. Influenza A, B, RSV and COVID-19 PCR nondetected. EKG showed sinus rhythm with nonspecific T wave abnormality. No evidence of peaked T waves. Chest x-ray showed correlate for COPD with superimposed CHF and pulmonary vascular congestion. Small bilateral pleural effusions with adjacent atelectasis or consolidation. 09/12/2023 Patient is seen and evaluated in room at bedside; patient denies any specific complaints; all of patient's questions were answered in great detail -- vital signs are reviewed and reveal blood pressure 134/74, pulse 80 and O2 saturation of 99% on room air Blood work reveals WBC of 9.8, hemoglobin of 11.1 and platelet count of 247, sodium 141, potassium 3.9, BUN/creatinine of 27/2.22 down from 6.6 yesterday - Cardiology following; heparin has been discontinued and patient was aspirin and Plavix - Patient underwent Stout catheter placement by urology; patient has been excessive consistent post obstructive diuresis 09/13/2023 Patient is seen and evaluated resting comfortably in bed; denies any specific complaints; [address] Vital signs are reviewed and remained stable Lab review shows WBC of 9.7, hemoglobin of 10.7 and platelet count of 241, sodium 142, potassium 4.0, B UN/creatinine of 19/1.41 which is down from 6.06 upon admission Cardiology on board for non-ST elevation MO; IV heparin has been discontinued and patient remains on aspirin and Plavix; cardiology recommending further ischemia workup as an outpatient Patient has been evaluated by urology for obstructive uropathy; Stout catheter in place; PSA is ordered and pending Objective - Vital Signs Vital signs: Vital Signs Temp 98.0 F 09/13/23 08:00 Pulse 96 09/13/23 08:00 Resp 17 09/13/23 08:00 BP 144/69 09/13/23 08:00 Pulse Ox 98 09/13/23 08:00 FiO2 Intake & Output 09/12/23 09/13/23 09/13/23 18:59 06:59 18:59 Intake Total 420 Output Total 2900 2100 1200 Balance -2480 -2100 -1200 Intake: Oral 420 Output: Urine 2900 2100 1200 Straight 1500 1200 Other: Voiding Method Indwelling Catheter Indwelling Catheter Indwelling Catheter - Exam Patient is sitting up in the bed comfortably, no acute distress, awake alert and oriented.. HEENT: Normocephalic. Neck is supple. Pupils reactive. Nostrils clear. Oral ca vity is moist. Skin lesion over the nose on the right side. Neck reveals no JVD, carotid bruits, or thyromegaly. CHEST EXAMINATION: Trachea is central. Symmetrical expansion. Bibasilar minimal crackles. No wheezing or rhonchi.. CARDIAC: Normal S1, S2 with no gallops. No murmurs ABDOMEN: Soft. Bowel sounds present. Nontender. No organomegaly. No abdominal bruits. Extremities: Bilateral 2+ pedal edema. No clubbing or cyanosis Neurologically awake, alert, oriented x3 with well-coordinated movements. No focal deficits noted Skin: No rash skin lesion noted on the nose, ashen color over the body. Psychiatric: Cooperative. Nonsuicidal, Musculoskeletal: No joint swelling or deformity. Normal range of motion. - Labs CBC & Chem 7: 09/13/23 06:29 09/13/23 06:29 Labs: Abnormal Lab Results - Last 24 Hours (Table) 09/13/23 09/13/23 Range/Units 06:29 06:29 RBC 3.49 L (4.30-5.90) m/uL Hgb 10.7 L (13.0-17.5) gm/dL Hct 33.7 L (39.0-53.0) % Chloride 111 H (98-107) mmol/L Carbon Dioxide 21 L (22-30) mmol/L Creatinine 1.41 H (0.66-1.25) mg/dL Glucose 105 H (74-99) mg/dL Calcium 8.1 L (8.4-10.2) mg/dL Assessment and Plan Assessment: Acute kidney injury due to possible obstructive uropathy and component of vasomotor nephropathy. Hyperkalemia secondary to kidney injury Anion gap metabolic acidosis Skin lesion noted on the nose, possible basal cell carcinoma Elevated troponin level likely due to kidney injury Fluid overload with leg swelling and vascular congestion.. Rule out acute CHF Hypertension GI prophylaxis with Protonix IV daily. Plan: Patient will be continued on IV hydration with normal saline. Stout catheter is being placed by urology which is pending. Patient did have a very scant amount of dribbling Potassium remains elevated and be corrected will follow-up with repeat potassium level this afternoon. Nephrology following Ultrasound renal was ordered. Cardiology was consulted due to elevated troponin level. 2D echocardiogram was ordered. Patient denies any chest pain or palpitations Symptomatic management for nausea. Patient reports nausea is improved and continued on Zofran as needed and patient is tolerating diet Oncology consultation due to possible basal cell carcinoma on the nose. Due to multiple complex medical issues, prognosis is guarded Recommend PT/OT therapy evaluation as patient may possibly need ECF
[2023-09-13] MEDS: MELATONIN 5 MG TABLET PO SCH (20:10)
[2023-09-14] MEDS: SODIUM CHLORIDE 0.45% 1,000 ML IV SCH ×3 (00:03→21:23)
[2023-09-14] MEDS: PANTOPRAZOLE 40 MG TABLET PO SCH (09:25)
[2023-09-14] MEDS: CLOPIDOGREL 75 MG TAB PO SCH (09:25)
[2023-09-14] MEDS: ATORVASTATIN 80 MG TAB PO SCH (09:25)
[2023-09-14] MEDS: ASPIRIN 81 MG PO SCH (09:25)
[2023-09-14] MEDS: TAMSULOSIN 0.4 MG CAP.ER.24H PO SCH (09:25)
[2023-09-14] MEDS: HEPARIN SODIUM,PORCINE 5,000 UNIT/ML 1 ML VIAL SQ SCH ×2 (09:25→21:19)
[2023-09-14] MEDS: atenoloL 50 MG TAB PO SCH (09:25)
[2023-09-14] MEDS: ISOSORBIDE MONONITRATE ER 30 MG TAB.ER.24H PO SCH (09:25)
[2023-09-14 10:05] LABS: African American GFR (CKD) 65 (>60 ml/min/1.73 sqM); Anion Gap 12 mmol/L; Blood Urea Nitrogen 17 mg/dL (9-20); Calcium 8.5 mg/dL (8.4-10.2); Carbon Dioxide 20 mmol/L (22-30); Chloride 110 mmol/L (98-107); Glucose 145 mg/dL (74-99); Non-African American GFR(CKD) 56 (>60 ml/min/1.73 sqM); Potassium 3.9 mmol/L (3.5-5.1); Sodium 142 mmol/L (137-145)
--- NOTE | 2023-09-14 10:09 | P.PN ---
Subjective Patient is seen in follow-up for acute kidney injury. Renal function continues to improve. Has Stout catheter for retention. Nonoliguric. On IV fluids. Vital signs are stable. General: No acute distress. HEENT: Head exam is unremarkable. LUNGS: No audible rhonchi or wheezes. HEART: Rate and Rhythm are regular. ABDOMEN: Nontender. EXTREMITITES: No edema. Objective - Vital Signs Vital signs: Vital Signs Temp 98.9 F 09/14/23 04:00 Pulse 89 09/14/23 04:00 Resp 16 09/14/23 04:00 BP 116/56 09/14/23 04:00 Pulse Ox 99 09/14/23 04:00 FiO2 Intake & Output 09/13/23 09/14/23 09/14/23 18:59 06:59 18:59 Intake Total 660 200 Output Total 3200 1700 Balance -2540 -1500 Intake: Oral 660 200 Output: Urine 3200 1700 Straight 2200 Other: Voiding Method Indwelling Catheter Indwelling Catheter - Labs CBC & Chem 7: 09/13/23 06:29 09/14/23 08:59 Labs: Abnormal Lab Results - Last 24 Hours (Table) 09/14/23 Range/Units 08:59 Chloride 110 H (98-107) mmol/L Carbon Dioxide 20 L (22-30) mmol/L Glucose 145 H (74-99) mg/dL Assessment and Plan Plan: Assessment: 1. Acute kidney injury secondary to obstructive uropathy. Urology following. Has Stout catheter. Baseline creatinine 0.8 in December 2022. UA benign. Creatinine 17 on admission and is down to 1.2 today. 2. Hyperkalemia secondary to acute kidney injury and obstructive uropathy. Resolved. 3. Metabolic acidosis secondary to acute kidney injury and IV fluids. Improved. 4. Hypernatremia from lack for water intake and postobstructive diuresis. Improved. Plan: Maintain half-normal saline. Avoid nephrotoxins. Repeat labs in the morning.
[2023-09-14 10:38] LABS: Basophils % (A) 0 %; Eosinophils # (A) 0.2 k/uL (0-0.7); Eosinophils % (A) 3 %; HGB 12.7 gm/dL (13.0-17.5); Lymphocytes % (A) 13 %; MCH 31.1 pg (25.0-35.0); MCHC 32.5 g/dL (31.0-37.0); MCV 95.6 fL (80.0-100.0); Monocytes # (A) 0.4 k/uL (0-1.0); Monocytes % (A) 6 %; Neutrophils # (A) 5.9 k/uL (1.3-7.7); Neutrophils % (A) 76 %; Platelet Count 291 k/uL (150-450); RBC 4.08 m/uL (4.30-5.90); WBC 7.7 k/uL (3.8-10.6)
--- NOTE | 2023-09-14 14:14 | P.PN ---
Subjective Progress Note Date: 09/14/23 Patient is a 78-year-old male with a past medical history of hypertension presents to ER with complaints of nausea and feeling like he has to gag. His symptoms have been present for the past 1 month. Patient also states that he has been having difficulty urinating which he thought was due to his enlarged prostate., Which has been present for the past few months. He also complains of frequent urination and he admits he has to go have a bowel movement. Patient also complaining of worsening leg swelling bilaterally. Patient has been having frequently acclamation for a long time. He has to wake up at least 5-6 times in the night. He does have a history of chronic diarrhea. Patient has been taking silver colloid/alternative medicine for years. He was also complaining lesion over his right side of the nose and has not follow-up with his primary care physician. Laboratory data showed WBC 12.6 hemoglobin 12.5 and platelets 302 Sodium 140 potassium 6.4 chloride 99 bicarb is 17 BUN 113 and creatinine 17.44 Blood sugar is 133, AST 78, ALT 37 and alk phos 69. Troponin 11.5 Urinalysis is negative for infection. Negative protein and pH 7.0. Influenza A, B, RSV and COVID-19 PCR nondetected. EKG showed sinus rhythm with nonspecific T wave abnormality. No evidence of peaked T waves. Chest x-ray showed correlate for COPD with superimposed CHF and pulmonary vascular congestion. Small bilateral pleural effusions with adjacent atelectasis or consolidation. 09/10/2023 Patient seen and evaluated in follow-up with no acute issues overnight. Patient reports nausea is improved and tolerating diet. Multiple medical consultations following including nephrology and cardiology. Patient continues to have severely abnormal kidney functions as well as elevated potassium which is being addressed. Patient having some urinary retention and has been having some dribbling and producing very little urine urology is consulted for possible urinary catheter placement. Oncology consulted as well history is basal cell carcinoma on the nose and appreciate input recommendations. Will need PT/OT therapy evaluation and possible ECF. Overall prognosis is guarded at this time 09/12/2023 Patient is seen and evaluated in room at bedside; patient denies any specific complaints; all of patient's questions were answered in great detail -- vital signs are reviewed and reveal blood pressure 134/74, pulse 80 and O2 saturation of 99% on room air Blood work reveals WBC of 9.8, hemoglobin of 11.1 and platelet count of 247, sodium 141, potassium 3.9, BUN/creatinine of 27/2.22 down from 6.6 yesterday - Cardiology following; heparin has been discontinued and patient was aspirin and Plavix - Patient underwent Stout catheter placement by urology; patient has been excessive consistent post obstructive diuresis 09/13/2023 Patient is seen and evaluated resting comfortably in bed; denies any specific complaints; [address] Vital signs are reviewed and remained stable Lab review shows WBC of 9.7, hemoglobin of 10.7 and platelet count of 241, sodium 142, potassium 4.0, B UN/creatinine of 19/1.41 which is down from 6.06 upon admission Cardiology on board for non-ST elevation NV; IV heparin has been discontinued and patient remains on aspirin and Plavix; cardiology recommending further ischemia workup as an outpatient Patient has been evaluated by urology for obstructive uropathy; Stout catheter in place; PSA is ordered and pending 09/14/2023 Patient is seen in follow-up today with nephrology and cardiology along with uro logy following. Patient was admitted with extremely elevated kidney functions most likely secondary to obstructive uropathy and creatinine is trending down nicely and currently 1.21 today. Patient continues on half normal saline per nephrology recommendations and will continue with Stout catheter as patient had retention. Will add Flomax. Patient lost IV access and will hold off on further IV for now and follow-up with repeat labs. Patient was seen and evaluated by physical therapy recommending rehab and patient is agreeable. Insurance authorization was submitted with case management following. Patient is afebrile denies any chest pain or shortness of breath. Patient is tolerating diet and denies any nausea or vomiting. Review of systems: Constitutional: No reports of fatigue, fever, or chills Cardiovascular: No reports of chest pain or palpitations Respiratory: No reports of shortness of breath or cough GI: No reports of nausea, vomiting, or diarrhea : No reports of dysuria, patient did have urinary retention requiring Stout Neurovascular: reports of generalized weakness All medications have been reviewed Physical exam: Patient is sitting up in the chair comfortably, no acute distress, awake alert and oriented.. HEENT: Normocephalic. Neck is supple. Pupils reactive. Nostrils clear. Oral cavity is moist. Skin lesion over the nose on the right side. Neck reveals no JVD, carotid bruits, or thyromegaly. CHEST EXAMINATION: Trachea is central. Symmetrical expansion. No wheezing or rhonchi.. CARDIAC: Normal S1, S2 with no gallops. No murmurs ABDOMEN: Soft. Bowel sounds present. Nontender. No organomegaly. No abdominal bruits. Extremities: Bilateral 2+ pedal edema. No clubbing or cyanosis Neurologically awake, alert, oriented x3 with well-coordinated movements. No focal deficits noted. Diffusely weak Skin: No rash skin lesion noted on the nose, ashen color over the body. Psychiatric: Cooperative. Nonsuicidal, Musculoskeletal: No joint swelling or deformity. Normal range of motion. Assessment: Acute kidney injury due to possible obstructive uropathy and component of vasomotor nephropathy. Hyperkalemia secondary to kidney injury Anion gap metabolic acidosis Skin lesion noted on the nose, possible basal cell carcinoma Elevated troponin level likely due to kidney injury Fluid overload with leg swelling and vascular congestion.. Ruled out acute CHF Hypertension GI prophylaxis with Protonix IV daily. Plan: Patient will continue with indwelling Stout catheter for obstructive uropathy and kidney functions are significantly improved. Nephrology and urology following and patient will continue with indwelling Stout catheter. Will add Flomax Patient lost IV access and okay to hold IV fluids at this time and will follow- up with repeat labs Cardiology has followed with the patient for elevated troponins and is continued on DVT prophylaxis along with Plavix and will follow-up with Dr. John in the outpatient setting in 1-2 weeks for further ischemic cardiac workup. Patient denies any chest pain or palpitations Urology recommends continuing with indwelling Stout catheter and follow-up outpatient Due to multiple complex medical issues, prognosis is guarded PT/OT therapy has evaluated the patient recommend ECF and patient is agreeable. Case management following an insurance authorization has been submitted and pending at this time Possible discharge planning in the next 0.4 hours The impression and plan of care has been dictated by Blanca Miller, Nurse Practitioner as directed. Dr. Tio MD I have performed a history and examination and MDM of this patient, discussed the same with the dictator, and agree with the dictator's assessment and plan as written ,documented as a scribe. Based on total visit time, I have performed more than 50% of the visit. Objective - Vital Signs Vital signs: Vital Signs Temp 98.9 F 09/14/23 04:00 Pulse 89 09/14/23 04:00 Resp 16 09/14/23 04:00 BP 116/56 09/14/23 04:00 Pulse Ox 99 09/14/23 04:00 FiO2 Intake & Output 09/13/23 09/14/23 09/14/23 18:59 06:59 18:59 Intake Total 660 200 240 Output Total 3200 1700 1400 Balance -2540 -1500 -1160 Intake: Oral 660 200 240 Output: Urine 3200 1700 1400 Straight 2200 Other: Voiding Method Indwelling Catheter Indwelling Catheter - Labs CBC & Chem 7: 09/14/23 08:59 09/14/23 08:59 Labs: Abnormal Lab Results - Last 24 Hours (Table) 09/14/23 Range/Units 08:59 Chloride 110 H (98-107) mmol/L Carbon Dioxide 20 L (22-30) mmol/L Glucose 145 H (74-99) mg/dL
[2023-09-14] MEDS: SENNOSIDES 8.6 MG TAB PO PRN (21:19)
[2023-09-14] MEDS: MELATONIN 5 MG TABLET PO SCH (21:19)
[2023-09-15] MEDS: SODIUM CHLORIDE 0.45% 1,000 ML IV SCH ×2 (05:21→18:47)
[2023-09-15] MEDS: PANTOPRAZOLE 40 MG TABLET PO SCH (06:48)
[2023-09-15 08:05] LABS: Glucose,Whole Blood 132 mg/dL (70-110)
[2023-09-15 08:54] LABS: African American GFR (CKD) 70 (>60 ml/min/1.73 sqM); Anion Gap 10 mmol/L; Blood Urea Nitrogen 20 mg/dL (9-20); Calcium 8.7 mg/dL (8.4-10.2); Carbon Dioxide 23 mmol/L (22-30); Chloride 109 mmol/L (98-107); Glucose 100 mg/dL (74-99); Magnesium 1.5 mg/dL (1.6-2.3); Non-African American GFR(CKD) 60 (>60 ml/min/1.73 sqM); Potassium 4.2 mmol/L (3.5-5.1); Sodium 142 mmol/L (137-145)
[2023-09-15] MEDS: atenoloL 50 MG TAB PO SCH (10:02)
[2023-09-15] MEDS: CLOPIDOGREL 75 MG TAB PO SCH (10:02)
[2023-09-15] MEDS: ATORVASTATIN 80 MG TAB PO SCH (10:02)
[2023-09-15] MEDS: ISOSORBIDE MONONITRATE ER 30 MG TAB.ER.24H PO SCH (10:02)
[2023-09-15] MEDS: ASPIRIN 81 MG PO SCH (10:02)
[2023-09-15] MEDS: TAMSULOSIN 0.4 MG CAP.ER.24H PO SCH (10:02)
[2023-09-15] MEDS: HEPARIN SODIUM,PORCINE 5,000 UNIT/ML 1 ML VIAL SQ SCH ×2 (10:03→20:34)
[2023-09-15] MEDS ORDERED: MAGNESIUM OXIDE 400 MG TAB PO STA (10:05)
--- NOTE | 2023-09-15 14:04 | P.PN ---
Subjective Patient is seen in follow-up for acute kidney injury. Renal function continues to improve. Has Stout catheter for retention. Nonoliguric. No active complaints. Vital signs are stable. General: No acute distress. HEENT: Head exam is unremarkable. LUNGS: No audible rhonchi or wheezes. HEART: Rate and Rhythm are regular. ABDOMEN: Nontender. EXTREMITITES: No edema. Objective - Vital Signs Vital signs: Vital Signs Temp 97.9 F 09/15/23 09:40 Pulse 97 09/15/23 09:40 Resp 16 09/15/23 09:40 BP 129/60 09/15/23 09:40 Pulse Ox 99 09/15/23 09:40 FiO2 Intake & Output 09/14/23 09/15/23 09/15/23 18:59 06:59 18:59 Intake Total 420 Output Total 1400 1100 550 Balance -980 -1100 -550 Intake: Oral 420 Output: Urine 1400 1100 550 Other: Voiding Method Indwelling Catheter Indwelling Catheter Indwelling Catheter - Labs CBC & Chem 7: 09/14/23 08:59 09/15/23 07:50 Labs: Abnormal Lab Results - Last 24 Hours (Table) 09/11/23 09/15/23 09/15/23 Range/Units 08:50 07:50 08:03 Chloride 109 H (98-107) mmol/L Glucose 100 H (74-99) mg/dL POC Glucose (mg/dL) 132 H (70-110) mg/dL Magnesium 1.5 L (1.6-2.3) mg/dL Total PSA 83.4 H (<=4.0) ng/mL Assessment and Plan Plan: Assessment: 1. Acute kidney injury secondary to obstructive uropathy. Urology following. Has Stout catheter. Baseline creatinine 0.8 in December 2022. UA benign. Creatinine 17 on admission and is down to 1.15 today. 2. Hyperkalemia secondary to acute kidney injury and obstructive uropathy. Resolved. 3. Metabolic acidosis secondary to acute kidney injury and IV fluids. Impr marshall. 4. Hypernatremia from lack for water intake and postobstructive diuresis. Improved. 5. Hypomagnesemia from poor intake and post obstructive diuresis. Plan: Avoid nephrotoxins. Maintain Stout catheter per urology recommendations. Replace magnesium.
[2023-09-15] MEDS: MAGNESIUM SULFATE-D5W PMX 1 GM in DEXTROSE/WATER 1 100ML.BAG IVPB SCH ×2 (18:47→20:36)
[2023-09-15] MEDS: MELATONIN 5 MG TABLET PO SCH (20:35)
[2023-09-15] MEDS: SENNOSIDES 8.6 MG TAB PO PRN (21:22)
[2023-09-16 00:15] VITALS: RESP 16
--- NOTE | 2023-09-16 05:22 | P.PN ---
Subjective Progress Note Date: 09/15/23 Patient is a 78-year-old male with a past medical history of hypertension presents to ER with complaints of nausea and feeling like he has to gag. His symptoms have been present for the past 1 month. Patient also states that he has been having difficulty urinating which he thought was due to his enlarged prostate., Which has been present for the past few months. He also complains of frequent urination and he admits he has to go have a bowel movement. Patient also complaining of worsening leg swelling bilaterally. Patient has been having frequently acclamation for a long time. He has to wake up at least 5-6 times in the night. He does have a history of chronic diarrhea. Patient has been taking silver colloid/alternative medicine for years. He was also complaining lesion over his right side of the nose and has not follow-up with his primary care physician. Laboratory data showed WBC 12.6 hemoglobin 12.5 and platelets 302 Sodium 140 potassium 6.4 chloride 99 bicarb is 17 BUN 113 and creatinine 17.44 Blood sugar is 133, AST 78, ALT 37 and alk phos 69. Troponin 11.5 Urinalysis is negative for infection. Negative protein and pH 7.0. Influenza A, B, RSV and COVID-19 PCR nondetected. EKG showed sinus rhythm with nonspecific T wave abnormality. No evidence of peaked T waves. Chest x-ray showed correlate for COPD with superimposed CHF and pulmonary vascular congestion. Small bilateral pleural effusions with adjacent atelectasis or consolidation. 09/10/2023 Patient seen and evaluated in follow-up with no acute issues overnight. Patient reports nausea is improved and tolerating diet. Multiple medical consultations following including nephrology and cardiology. Patient continues to have severely abnormal kidney functions as well as elevated potassium which is being addressed. Patient having some urinary retention and has been having some dribbling and producing very little urine urology is consulted for possible urinary catheter placement. Oncology consulted as well history is basal cell carcinoma on the nose and appreciate input recommendations. Will need PT/OT therapy evaluation and possible ECF. Overall prognosis is guarded at this time 09/12/2023 Patient is seen and evaluated in room at bedside; patient denies any specific complaints; all of patient's questions were answered in great detail -- vital signs are reviewed and reveal blood pressure 134/74, pulse 80 and O2 saturation of 99% on room air Blood work reveals WBC of 9.8, hemoglobin of 11.1 and platelet count of 247, sodium 141, potassium 3.9, BUN/creatinine of 27/2.22 down from 6.6 yesterday - Cardiology following; heparin has been discontinued and patient was aspirin and Plavix - Patient underwent Stout catheter placement by urology; patient has been excessive consistent post obstructive diuresis 09/13/2023 Patient is seen and evaluated resting comfortably in bed; denies any specific complaints; [address] Vital signs are reviewed and remained stable Lab review shows WBC of 9.7, hemoglobin of 10.7 and platelet count of 241, sodium 142, potassium 4.0, B UN/creatinine of 19/1.41 which is down from 6.06 upon admission Cardiology on board for non-ST elevation [place]; IV heparin has been discontinued and patient remains on aspirin and Plavix; cardiology recommending further ischemia workup as an outpatient Patient has been evaluated by urology for obstructive uropathy; Stout catheter in place; PSA is ordered and pending 09/14/2023 Patient is seen in follow-up today with nephrology and cardiology along with uro logy following. Patient was admitted with extremely elevated kidney functions most likely secondary to obstructive uropathy and creatinine is trending down nicely and currently 1.21 today. Patient continues on half normal saline per nephrology recommendations and will continue with Stout catheter as patient had retention. Will add Flomax. Patient lost IV access and will hold off on further IV for now and follow-up with repeat labs. Patient was seen and evaluated by physical therapy recommending rehab and patient is agreeable. Insurance authorization was submitted with case management following. Patient is afebrile denies any chest pain or shortness of breath. Patient is tolerating diet and denies any nausea or vomiting. 09/15/2023 Patient seen and evaluated today kidney functions are improving. Patient is maintained on indwelling Stout catheter and will continue per urology re commendations and have outpatient follow-up. Patient has been working with physical therapy daily continues to have weakness. Patient has had difficulties with getting up on his and fatigues requiring rest periods and was independent prior and would benefit from ECF for continued strength and mobility. Patient lives alone and feels unsafe going home as he feels he is high risk for falls. Case management is following awaiting insurance authorization for possible ECF. Patient denies chest pain or shortness of breath and is tolerating diet with no reported nausea or vomiting. Review of systems: Constitutional: No reports of fatigue, fever, or chills Cardiovascular: No reports of chest pain or palpitations Respiratory: No reports of shortness of breath or cough GI: No reports of nausea, vomiting, or diarrhea : No reports of dysuria, patient did have urinary retention requiring Stout Neurovascular: reports of generalized weakness All medications have been reviewed Physical exam: Patient is sitting up in the chair, awake alert and oriented. Well-developed, well-nourished, elderly-appearing HEENT: Normocephalic. Neck is supple. Pupils reactive. Nostrils clear. Oral cavity is moist. Skin lesion over the nose on the right side. Neck reveals no JVD, carotid bruits, or thyromegaly. CHEST EXAMINATION: Trachea is central. Symmetrical expansion. No wheezing or rhonchi.. CARDIAC: S1, S2 are muffled ABDOMEN: Soft. Bowel sounds present. Nontender. No organomegaly. No abdominal bruits. Extremities: Bilateral 2+ pedal edema. No clubbing or cyanosis Neurologically awake, alert, oriented x3 with well-coordinated movements. No focal deficits noted. Diffusely weak Skin: No rash skin lesion noted on the nose, appears ashen color over the body. Psychiatric: Cooperative. Nonsuicidal, Musculoskeletal: No joint swelling or deformity. Normal range of motion. Assessment: Acute kidney injury due to possible obstructive uropathy and component of vasomotor nephropathy. Hyperkalemia secondary to kidney injury, improving Hypomagnesemia Generalized weakness with gait dysfunction Anion gap metabolic acidosis Skin lesion noted on the nose, possible basal cell carcinoma Elevated troponin level likely due to kidney injury Fluid overload with leg swelling and vascular congestion.. Ruled out acute CHF Hypertension GI prophylaxis DVT prophylaxis Full code Plan: Patient will continue with indwelling Stout catheter for obstructive uropathy and kidney functions are significantly improved. Nephrology and urology following and patient will continue with indwelling Stout catheter. Continue Flomax Magnesium 1.5 today and will replace and follow up with repeat labs. Kidney functions are improving Cardiology has followed with the patient for elevated troponins and is continued on DVT prophylaxis along with Plavix and will follow-up with Dr. John in the outpatient setting in 1-2 weeks for further ischemic cardiac workup. Patient denies any chest pain or palpitations Urology recommends continuing with indwelling Stout catheter and follow-up outpatient Due to multiple complex medical issues, prognosis is guarded PT/OT therapy has evaluated the patient recommend ECF and patient is agreeable. Patient feels unsafe returning home as he lives alone and was independent prior and continues with significant weakness. Patient taking multiple resting periods during ambulation and is concerned with falling. Case management following and insurance authorization has been submitted and pending at this time Possible discharge planning in the next 24-48 hours The impression and plan of care has been dictated by Blanca Miller, Nurse Practitioner as directed. Dr. Toi MD I have performed a history and examination and MDM of this patient, discussed the same with the dictator, and agree with the dictator's assessment and plan as written ,documented as a scribe. Based on total visit time, I have performed more than 50% of the visit. Objective - Vital Signs Vital signs: Vital Signs Temp 98.2 F 09/14/23 23:45 Pulse 89 09/15/23 03:57 Resp 16 09/15/23 03:57 BP 117/72 09/15/23 03:57 Pulse Ox 99 09/15/23 03:57 FiO2 Intake & Output 09/14/23 09/15/23 09/15/23 18:59 06:59 18:59 Intake Total 420 Output Total 1400 1100 Balance -980 -1100 Intake: Oral 420 Output: Urine 1400 1100 Other: Voiding Method Indwelling Catheter Indwelling Catheter - Labs CBC & Chem 7: 09/14/23 08:59 09/15/23 07:50 Labs: Abnormal Lab Results - Last 24 Hours (Table) 09/11/23 09/14/23 09/15/23 Range/Units 08:50 08:59 07:50 RBC 4.08 L (4.30-5.90) m/uL Hgb 12.7 L (13.0-17.5) gm/dL Chloride 109 H (98-107) mmol/L Glucose 100 H (74-99) mg/dL POC Glucose (mg/dL) (70-110) mg/dL Magnesium 1.5 L (1.6-2.3) mg/dL Total PSA 83.4 H (<=4.0) ng/mL 09/15/23 Range/Units 08:03 RBC (4.30-5.90) m/uL Hgb (13.0-17.5) gm/dL Chloride (98-107) mmol/L Glucose (74-99) mg/dL POC Glucose (mg/dL) 132 H (70-110) mg/dL Magnesium (1.6-2.3) mg/dL Total PSA (<=4.0) ng/mL
[2023-09-16] MEDS: SODIUM CHLORIDE 0.45% 1,000 ML IV SCH (05:24)
[2023-09-16] MEDS: PANTOPRAZOLE 40 MG TABLET PO SCH (06:42)
[2023-09-16] MEDS: TAMSULOSIN 0.4 MG CAP.ER.24H PO SCH (08:25)
[2023-09-16] MEDS: atenoloL 50 MG TAB PO SCH (08:25)
[2023-09-16] MEDS: ISOSORBIDE MONONITRATE ER 30 MG TAB.ER.24H PO SCH (08:25)
[2023-09-16] MEDS: ASPIRIN 81 MG PO SCH (08:25)
[2023-09-16] MEDS: SENNOSIDES 8.6 MG TAB PO PRN (08:25)
[2023-09-16] MEDS: CLOPIDOGREL 75 MG TAB PO SCH (08:25)
[2023-09-16] MEDS: HEPARIN SODIUM,PORCINE 5,000 UNIT/ML 1 ML VIAL SQ SCH (08:25)
[2023-09-16] MEDS: ATORVASTATIN 80 MG TAB PO SCH (08:25)
[2023-09-16 10:12] LABS: African American GFR (CKD) 60 (>60 ml/min/1.73 sqM); Anion Gap 13 mmol/L; Blood Urea Nitrogen 23 mg/dL (9-20); Calcium 8.7 mg/dL (8.4-10.2); Carbon Dioxide 20 mmol/L (22-30); Chloride 107 mmol/L (98-107); Glucose 185 mg/dL (74-99); Magnesium 1.9 mg/dL (1.6-2.3); Non-African American GFR(CKD) 52 (>60 ml/min/1.73 sqM); Potassium 3.6 mmol/L (3.5-5.1); Sodium 140 mmol/L (137-145)
--- NOTE | 2023-09-16 10:39 | P.DS ---
Providers Date of admission: 09/09/23 15:54 Expected date of discharge: 09/16/23 Attending physician: Kiera Vivas Consults: 09/09/23 15:53 Consult Physician Stat Consulting Provider: Kisha Lopez Consult Reason/Comments: arf Do you want consulting provider notified?: Already Contacted Consult Physician Urgent Consulting Provider: Dani John Consult Reason/Comments: elevated trop Do you want consulting provider notified?: Already Contacted 09/10/23 00:21 Consult Physician Routine Consulting Provider: Hua Carter Consult Reason/Comments: Lesion on Rt nose/ BCC Do you want consulting provider notified?: Yes, Notify in am 09/10/23 06:25 Consult Physician Stat Consulting Provider: Du Childress Consult Reason/Comments: urinary retention, unsuccessful gamboa placement Do you want consulting provider notified?: Yes Primary care physician: Beatris Castillo [facility] Course: Final diagnosis Acute kidney injury due to possible obstructive uropathy and component of vasomotor nephropathy. Urinary retention likely obstructive uropathy requiring indwelling Gamboa catheter Hyperkalemia secondary to kidney injury, improving Hypomagnesemia Generalized weakness with gait dysfunction Anion gap metabolic acidosis Skin lesion noted on the nose, possible basal cell carcinoma Elevated troponin level likely due to kidney injury Fluid overload with leg swelling and vascular congestion.. Ruled out acute CHF Hypertension GI prophylaxis DVT prophylaxis Full code Discharge disposition Patient is being discharged in a stable condition with guarded prognosis to [facility]. Patient will follow-up with in the outpatient setting upon discharge. Patient is to continue with hemodialysis as scheduled. Total time taken is greater than 35 minutes. Hospital course This is a 78-year-old male who was recently admitted with acute kidney injury secondary to obstructive uropathy along with urinary retention requiring indwelling Gamboa catheter that was placed by urology with kidney function significantly improved and being followed by nephrology as well. Patient will continue with indwelling Gamboa catheter and was placed on Flomax and will follow-up with urology outpatient. Patient creatinine is currently 1.29 today along with a sodium of 140 and potassium is 3.6. Magnesium was low yesterday and replaced and is 1.9 today. Patient also with an elevated troponin likely due to kidney injury and was evaluated by cardiology recommending outpatient follow-up for further cardiac workup in the outpatient setting in the next 1-2 weeks. Patient has been cleared by consultations for close outpatient follow-up and patient instructed to follow-up with repeat labs of CBC and BMP along with magnesium in the outpatient setting and close nephrology follow-up. Patient has been cleared by consultations for discharge. Please refer to occupational for further HPI. Patient with significant weakness was seen and evaluated by physical therapy recommending rehab and patient is agreeable. Initially insurance was denied and peer to peer was performed and approved and [facility] Patient is to continue with indwelling Gamboa catheter on discharge and will continue Flomax. Currently no reports of chest pain, shortness of breath, or palpitations. Patient is afebrile. No reports of nausea or vomiting and patient is tolerating diet. Patient will be going to [facility] today. Guarded prognosis. Patient was also seen and evaluated by oncology with concerns of basal cell carcinoma and is agreeable along with oncology being aware that patient will withhold all treatment while at [facility] and will follow-up with oncology in the outpatient setting once discharged from [facility]. Physical exam: Gen: This is a 78-year-old male who is awake, alert and oriented 3, well- developed, well-nourished, elderly-appearing HEENT: Head is atraumatic, normocephalic. Pupils equal, round. Sclerae is anicteric. NECK: Supple. No JVD. No lymphadenopathy. No thyromegaly. LUNGS: Clear to auscultation. No wheezes or rhonchi. No intercostal retractions. HEART: Regular rate and rhythm. No murmur. ABDOMEN: Soft. Bowel sounds are present. No masses. No tenderness. EXTREMITIES: No pedal edema. No calf tenderness. NEUROLOGICAL: Patient is awake, alert and oriented x3. Cranial nerves 2 through 12 are grossly intact. Diffusely weak Please refer to medication reconciliation sheet for a list of medications. The impression and plan of care has been dictated by Blanca Miller, Nurse Practitioner as directed. Dr. Tio MD I have performed a history and examination and MDM of this patient, discussed the same with the dictator, and agree with the dictator's assessment and plan as written ,documented as a scribe. Based on total visit time, I have performed more than 50% of the visit. Patient Condition at Discharge: Fair Plan - Discharge Summary Discharge Rx Participant: Yes New Discharge Prescriptions: New Isosorbide Mononitrate ER [Imdur] 30 mg PO DAILY tab Tamsulosin [Flomax] 0.4 mg PO PC-BRKFST cap Heparin Sodium,Porcine (1 ml) [Heparin Sodium] 5,000 unit SQ Q12HR each Melatonin 5 mg PO HS tab Acetaminophen Tab [Tylenol] 650 mg PO Q6HR PRN tab PRN Reason: Mild Pain Or Fever > 100.5 Atorvastatin [Lipitor] 80 mg PO DAILY tab Clopidogrel [Plavix] 75 mg PO DAILY tab Pantoprazole [Protonix] 40 mg PO AC-BRKFST tab Sennosides [Senokot] 8.6 mg PO BID PRN tab PRN Reason: Constipation Continue Aspirin EC [Ecotrin Low Dose] 81 mg PO DAILY Loperamide [Imodium] 2 mg PO QID PRN PRN Reason: Diarrhea atenoloL [Tenormin] 50 mg PO DAILY Discontinued Losartan Potassium 100 mg PO DAILY Discharge Medication List Aspirin EC [Ecotrin Low Dose] 81 mg PO DAILY 01/12/17 [History] Loperamide [Imodium] 2 mg PO QID PRN 09/09/23 [History] atenoloL [Tenormin] 50 mg PO DAILY 09/09/23 [History] Atorvastatin [Lipitor] 80 mg PO DAILY tab 09/13/23 [Rx] Clopidogrel [Plavix] 75 mg PO DAILY tab 09/13/23 [Rx] Isosorbide Mononitrate ER [Imdur] 30 mg PO DAILY tab 09/13/23 [Rx] Acetaminophen Tab [Tylenol] 650 mg PO Q6HR PRN tab 09/16/23 [Rx] Heparin Sodium,Porcine (1 ml) [Heparin Sodium] 5,000 unit SQ Q12HR each 09/16/23 [Rx] Melatonin 5 mg PO HS tab 09/16/23 [Rx] Pantoprazole [Protonix] 40 mg PO AC-BRKFST tab 09/16/23 [Rx] Sennosides [Senokot] 8.6 mg PO BID PRN tab 09/16/23 [Rx] Tamsulosin [Flomax] 0.4 mg PO PC-BRKFST cap 09/16/23 [Rx] Follow up Appointment(s)/Referral(s): Anna Spear MD [Primary Care Provider] - 1-2 days Sachin Cordoba MD [STAFF PHYSICIAN] - 1 Week (Needs to be seen by Dermatology for nose lesion) Temo Colmenares MD [STAFF PHYSICIAN] - 1 Week () Dom Demarco MD [STAFF PHYSICIAN] - 2 Weeks (After pt seen by Dermatology) Dani John MD [STAFF PHYSICIAN] - 2 Weeks Ambulatory/Diagnostic Orders: Basic Metabolic Panel [LAB.AMB] Time Frame: 2 Days, Location: None Selected Activity/Diet/Wound Care/Special Instructions: Patient will be going to [facility] Activity as tolerated Follow-up with primary care provider on discharge Follow-up with nephrology outpatient in one week Follow-up urology outpatient Continue indwelling Gamboa catheter Patient is agreeable to withhold all oncological care and treatment during rehab and will follow-up outpatient on discharge from [facility] with oncology Repeat labs in 2-3 days to monitor BMP and magnesium Discharge Disposition: TRANSFER TO SNF/ECF
[2023-09-16] MEDS ORDERED: POTASSIUM CHLORIDE ER 20 MEQ TAB.ER PO STA (11:36)
--- NOTE | 2023-09-16 11:36 | P.PN ---
Subjective Patient is seen in follow-up for acute kidney injury. Renal function stable. Has Stout catheter for retention. Nonoliguric. No active complaints. Vital signs are stable. General: No acute distress. HEENT: Head exam is unremarkable. LUNGS: No audible rhonchi or wheezes. HEART: Rate and Rhythm are regular. ABDOMEN: Nontender. EXTREMITITES: No edema. Objective - Vital Signs Vital signs: Vital Signs Temp 98.8 F 09/15/23 16:20 Pulse 84 09/16/23 03:42 Resp 16 09/16/23 03:42 BP 118/71 09/16/23 03:42 Pulse Ox 99 09/16/23 03:42 FiO2 Intake & Output 09/15/23 09/16/23 09/16/23 18:59 06:59 18:59 Output Total 550 1000 Balance -550 -1000 Output: Urine 550 1000 Other: Voiding Method Indwelling Catheter Indwelling Catheter - Labs CBC & Chem 7: 09/14/23 08:59 09/16/23 09:14 Labs: Abnormal Lab Results - Last 24 Hours (Table) 09/16/23 Range/Units 09:14 Carbon Dioxide 20 L (22-30) mmol/L BUN 23 H (9-20) mg/dL Creatinine 1.29 H (0.66-1.25) mg/dL Glucose 185 H (74-99) mg/dL Assessment and Plan Plan: Assessment: 1. Acute kidney injury secondary to obstructive uropathy. Urology following. Has Stout catheter. Baseline creatinine 0.8 in December 2022. UA benign. Creatinine 17 on admission - 1.29 today. 2. Hyperkalemia secondary to acute kidney injury and obstructive uropathy. Resolved. 3. Metabolic acidosis secondary to acute kidney injury and IV fluids. 4. Hypernatremia from lack for water intake and postobstructive diuresis. Improved. 5. Hypomagnesemia from poor intake and post obstructive diuresis. Replace. Improved. Plan: Avoid nephrotoxins. Maintain Stout catheter per urology recommendations. Hep-Lock IV fluids. Follow up outpatient in 1 week post discharge.
[2023-09-16 13:22] VITALS: BP 104/55; PULSE 86; TEMP 98.2
== END 2023-09-16 13:08 | DRG 682 ==
LOC: EC 13:20 → 3SCARD 15:54
PROVIDERS: ADMIT Internal Medicine; ATTEND Internal Medicine
PROC: 0T7D8ZZ Dilation of Urethra, Via Natural or Artificial Opening Endoscopic (ICD-10-PCS; principal; 2023-09-10)
PROC: 0T9B80Z Drainage of Bladder with Drainage Device, Via Natural or Artificial Opening Endoscopic (ICD-10-PCS; 2023-09-10)
DX: N17.0 Acute kidney failure with tubular necrosis (principal); I21.4 Non-ST elevation (NSTEMI) myocardial infarction; I21.9 Acute myocardial infarction, unspecified; E87.20 Acidosis, unspecified; E87.0 Hyperosmolality and hypernatremia; N13.8 Other obstructive and reflux uropathy; I27.20 Pulmonary hypertension, unspecified; N13.30 Unspecified hydronephrosis; E83.39 Other disorders of phosphorus metabolism; I10 Essential (primary) hypertension; I08.1 Rheumatic disorders of both mitral and tricuspid valves; E87.5 Hyperkalemia; M79.89 Other specified soft tissue disorders; N40.1 Benign prostatic hyperplasia with lower urinary tract symptoms; K52.9 Noninfective gastroenteritis and colitis, unspecified; C44.311 Basal cell carcinoma of skin of nose; E83.42 Hypomagnesemia; R26.89 Other abnormalities of gait and mobility; E87.70 Fluid overload, unspecified; R39.12 Poor urinary stream; R68.2 Dry mouth, unspecified; Z20.822 Contact with and (suspected) exposure to COVID-19; Z28.310 Unvaccinated for COVID-19; Z85.828 Personal history of other malignant neoplasm of skin; Z79.899 Other long term (current) drug therapy; Z79.82 Long term (current) use of aspirin
CPT/HCPCS: 36415; 51702; 71046; 76770; 80048; 80053; 80061; 81001; 82570; 83735; 83880; 84100; 84132; 84153; 84156; 84300; 84484; 85025; 85027; 85610; 85730; 87636; 93005; 93306; 96365; 96366; 96375; 99291

== ENCOUNTER 2023-10-16 06:00 | Day surgery (SDC) | payer MEDICARE, OTHER ==
[2023-10-09 10:11] VITALS: BMI 23.4
[2023-10-16] MEDS ORDERED: HEPARIN SODIUM,PORCINE 10,000 UNIT in SODIUM CHLORIDE 0.9% 1,000 ML IRRIGATION PRN (06:01)
[2023-10-16] MEDS ORDERED: ASPIRIN 325 MG TAB PO STA (06:01)
[2023-10-16] MEDS ORDERED: ALPRAZolam 0.5 MG TAB PO PRN (06:01)
[2023-10-16] MEDS ORDERED: ALPRAZolam 0.25 MG TAB PO PRN (06:01)
[2023-10-16] MEDS ORDERED: HEPARIN SODIUM,PORCINE (1 ML) 2,500 UNIT in SODIUM CHLORIDE 0.9% 250 ML IRRIGATION PRN (06:01)
[2023-10-16] MEDS ORDERED: NITROGLYCERIN SL TABS 0.4 MG TAB SUBLINGUAL PRN ×2 (06:01→15:17)
[2023-10-16] MEDS ORDERED: SODIUM CHLORIDE 0.9% 1,000 ML in EMPTY BAG 1 BAG IV ONE (06:01)
[2023-10-16] MEDS: MIDAZOLAM 2 MG/2 ML VIAL IVP ONE ×2 (07:35→08:08)
[2023-10-16] MEDS ORDERED: fentaNYL (PF) 50 MCG/ML 2 ML AMP IVP ONE (07:35)
[2023-10-16] MEDS ORDERED: LIDOCAINE 1% INJ 10MG/ML (5 ML VIAL-PF) SQ ONE (07:35)
[2023-10-16] MEDS ORDERED: VERAPAMIL SYRINGE (5 MG/10 ML) INTRAARTER ONE (07:36)
[2023-10-16] MEDS: HEPARIN SODIUM 1,000 UN/ML (10ML VL) IV ONE ×5 (07:44→09:30)
--- NOTE | 2023-10-16 08:49 | CC ---
CARDIAC CATHETERIZATION REPORT INDICATIONS: Manas is an 78-year-old gentleman, who was admitted to hospital with acute renal failure secondary to prostatic obstruction, ruled in for myocardial infarction and we treated him medically at that time. Now he has an indwelling catheter and needs surgery for the same. Recent stress test showed ischemia involving inferior and inferolateral [place] due to which I advised him to undergo cardiac catheterization for further evaluation. The patient had been explained of risks, benefits and alternatives; understood and accepted. His creatinine now is 1.1. He has normal LV systolic function. PROCEDURE NOTE: After obtaining informed consent, left heart catheterization and coronary angiogram were performed via the right radial artery using standard Ran catheters. The patient tolerated the procedure well without any obvious immediate complications. The patient received verapamil and heparin per protocol. Right radial artery access was obtained using Seldinger technique. Catheters and wires were floated into the ascending aorta under fluoroscopic guidance. Total sedation time was 30 minutes. FINDINGS: 1. Hemodynamics: Left ventricular end-diastolic pressure is 17 mm. There is no significant gradient across the aortic valve. 2. Left ventriculogram: Left ventriculogram was not performed. 3. Angiographic data: a.Right coronary artery: Right coronary artery is a large dominant vessel and shows a 90% focal obstructive disease in the midportion. Left main is a very short vessel. Circumflex and LAD have separate origins. The LAD shows moderate diffuse disease in its midportion, but no focal significant obstructive disease. Circumflex was not well visualized in spite of multiple attempts. I will ask the manager registration to get most selective images of the circumflex coronary artery. CONCLUSION: 1. Severe stenosis involving mid RCA. This explains the patient's initial clinical presentation, EKG changes and the abnormal stress test. 2. He will undergo angioplasty of the same and hopefully go through his surgery over the next 6 to 8 weeks time. We will have more optimal images of the circumflex shortly. MMODL / IJN: [id number] /
[2023-10-16] MEDS: NITROGLYCERIN 1000MCG/10ML SYRINGE INTRACORON ONE ×3 (09:14→09:49)
[2023-10-16] MEDS ORDERED: IOPAMIDOL-370 100ML BTL INJ ONE ×2 (09:15→09:55)
[2023-10-16] MEDS ORDERED: HEPARIN SODIUM 1,000 UN/ML (10ML VL) IV ONE (09:45)
--- NOTE | 2023-10-16 10:41 | P.PRCINT ---
Percutaneous Coronary Int. - Percutaneous Coronary Intervention Percutaneous Coronary Intervention: PROCEDURES PERFORMED: Bilateral coronary angiography, PCI mid circumflex with 2.5 x 15 mm Xience TIERRA, PCI mid RCA with 4.0 x 23 mm Xience TIERRA , intravascular ultrasound RCA INDICATION: Previous non-STEMI, abnormal stress test with inferior, inferolateral ischemia PROCEDURE: After the risks, benefits and alternatives of the above mentioned procedure explained in detail with the patient, informed consent was obtained. Patient was taken to the catheterization lab and prepped and draped in usual fashion. A 6-Norwegian sheath had previously been placed in the right radial artery. The circumflex was not fully opacified and therefore initially a FL 3 catheters used for selective circumflex imaging. Patient does have a history of prostate issues, urologic issues and being evaluate for preoperative clearance however noted to have significant obstructive CAD in the circumflex and RCA territory and therefore recommended stenting with drug-eluting stent. Therefore a 6- Norwegian CLS 3.5 guide was easily engage the left main. A 0.014 BMW wire and then a 0.014 whisper wire was advanced in the distal OM 2 branch. Predilation was performed with a 1.5 and then 2.5 x 12 mm balloon. next a 2.5 x 15 mm Xience TIERRA was placed in the mid to distal circumflex. Pre-intervention there was tandem 80% and 99% circumflex stenoses and REGINALDO 2 flow and postintervention there was less than 10% stenosis and REGINALDO-3 flow. Next a 6-Norwegian AL 0.75 guide was used to engage RCA. A 0.014 BMW wire was advanced the distal RCA. Predilation was performed with a 2.5 and then 4.0 noncompliant balloon. Intravascular ultrasound showed reference vessel 4.0 mm. A 4.0 x 23 mm Xience TIERRA was placed in the mid RCA. Repeat intravascular ultrasound showed excellent stent apposition with no dissection. Final angiograms were performed. Preintervention there was 95% stenosis with REGINALDO 3 flow and postintervention there was 0% stenosis with REGINALDO 3 flow. The right radial sheath was removed and a TR band was placed with hemostasis achieved. The patient tolerated the procedure well. Patient was transported back to the post catheterization holding area in stable condition. Conscious Sedation: Patient was monitored under the direct supervision of myself for conscious sedation using Versed and fentanyl for a total duration of 70 minutes HEMODYNAMICS: Aorta: 132/78 SELECTIVE CORONARY ARTERIOGRAPHY: LEFT MAIN: The left main is a large caliber vessel which bifurcates into the LAD and circumflex. There is no significant stenosis. LEFT ANTERIOR DESCENDING CORONARY ARTERY: LAD is a large caliber vessel which wraps around to the apex. There are tandem 50% proximal and 50% mid LAD stenoses LEFT CIRCUMFLEX CORONARY ARTERY: Left circumflex is a moderate caliber vessel with a mid to distal circumflex 90 and 99% stenosis. RIGHT CORONARY ARTERY: The right coronary artery is a large caliber vessel which gives off a PDA and PLV branch and is the dominant vessel. There is a mid RCA 95% stenosis FINAL IMPRESSION: 1. CAD as described above including 50% mid LAD stenosis, mid to distal circumflex 90, 99% stenosis, mid RCA 95% stenosis 2. S/p PCI mid circumflex with 2.5 x 15 mm Xience TIERRA, PCI mid RCA with 4.0 x 23 mm Xience TIERRA PLAN: 1. Aggressive risk factor modification per most recent ACC/AHA guidelines. 2. Continue dual antiplatelets with aspirin and Plavix ideally for 6 months however if further biopsy or surgery warranted would be reasonable to perform at 3 months.
[2023-10-16] MEDS ORDERED: LOPERAMIDE 2 MG CAP PO PRN (10:59)
[2023-10-16] MEDS ORDERED: ACETAMINOPHEN TAB 325 MG TAB PO PRN (10:59)
[2023-10-16] MEDS ORDERED: SENNOSIDES 8.6 MG TAB PO PRN (10:59)
[2023-10-16] MEDS ORDERED: SODIUM CHLORIDE 0.9% 1,000 ML IV SCH (11:00)
[2023-10-16 14:23] VITALS: TEMP 98.5
[2023-10-16] MEDS ORDERED: ATROPINE SULFATE 0.1 MG/ML 10ML SYRINGE IV PRN (15:17)
[2023-10-16] MEDS ORDERED: ZOLPIDEM 5 MG TAB PO PRN (15:17)
[2023-10-16] MEDS ORDERED: MAG HYDROX/AL HYDROX/SIMETH 30 ML CUP PO PRN (15:17)
[2023-10-16] MEDS ORDERED: RX INFO: IV CONTRAST WAS GIVEN 1 EACH MISC MISCELLANE PRN (15:17)
[2023-10-16] MEDS ORDERED: ARTIFICIAL TEARS-HYPROMELLOSE DROPS 15 ML BTL BOTH EYES SCH (16:00)
[2023-10-16 16:26] VITALS: RESP 16
[2023-10-16 17:12] VITALS: BP 134/63; PULSE 90
[2023-10-16] MEDS ORDERED: MELATONIN 5 MG TABLET PO SCH (21:00)
[2023-10-17] MEDS ORDERED: PANTOPRAZOLE 40 MG TABLET PO SCH (07:30)
[2023-10-17] MEDS ORDERED: TAMSULOSIN 0.4 MG CAP.ER.24H PO SCH (09:00)
[2023-10-17] MEDS ORDERED: ISOSORBIDE MONONITRATE ER 30 MG TAB.ER.24H PO SCH (09:00)
[2023-10-17] MEDS ORDERED: ASPIRIN 81 MG PO SCH (09:00)
[2023-10-17] MEDS ORDERED: CLOPIDOGREL 75 MG TAB PO SCH (09:00)
[2023-10-17] MEDS ORDERED: ATORVASTATIN 80 MG TAB PO SCH (09:00)
[2023-10-17] MEDS ORDERED: atenoloL 50 MG TAB PO SCH (09:00)
== END 2023-10-16 18:37 ==
LOC: CATHCVL 06:00 → 6NMEDSUR 09:56 → CATHCVL 18:37
PROVIDERS: ATTEND Internal Medicine Cardiovascular Disease
DX: I25.10 Atherosclerotic heart disease of native coronary artery without angina pectoris (principal); Z79.899 Other long term (current) drug therapy
CPT/HCPCS: 92978; 93458; C1769 ×4; C9600; C1887 ×3; C1894; C1725 ×3; C1753; C1874 ×2; J2250; J2001; J3010; J1644; Q9967; J2305

== ENCOUNTER → 2023-10-28 | Outpatient (CLI) | payer MEDICARE, OTHER ==
[2023-10-28 08:39] LABS: African American GFR (CKD) 88 (>60 ml/min/1.73 sqM); Blood Urea Nitrogen 17 mg/dL (9-20); Non-African American GFR(CKD) 76 (>60 ml/min/1.73 sqM)
--- NOTE | 2023-10-30 15:56 | CT ---
EXAMINATION TYPE: CT neck chest w con CT DLP: 711 mGycm, Automated exposure control for dose reduction was used. DATE OF EXAM: 10/28/2023 9:21 AM COMPARISON: None available. CLINICAL INDICATION:Male, 78 years old with history of C44.311 BASAL CELL CARCINOMA OF SKIN OF NOSE;, basal cell carcinoma of skin of nose f/u TECHNIQUE: Standard enhanced CT of the neck and chest. Axial sections with coronal and sagittal refo rmats were obtained. Contrast used:100 mL of Isovue 300 with IV Contrast, (none if empty) Oral contrast used: (none if empty) FINDINGS: Neck: Brain, orbits, sinuses: Radiodensities associated with the bilateral globes suggesting prior ophthalm ologic surgery. Otherwise the visualized portions are grossly unremarkable. Spaces of the neck: Clear and symmetric. Airway: Patent. Lymph nodes: Multiple nonenlarged lymph nodes are seen along both anterior chains of the neck. No e nlarged nodes are seen. Vascular structures: Patent with atherosclerotic plaque of the internal carotid arteries at the bifur cation. Mixed plaque in the proximal left ICA causes luminal diameter stenosis of approximately 61%. Soft plaque in the proximal right ICA causes luminal diameter stenosis of approximately 25%. Dominant left vertebral artery, with mixed plaque at its origin likely causing mild stenosis. Origin of the r ight vertebral artery appears widely patent. Thoracic Inlet: Lung apices are clear. Soft tissues/Thyroid: Thyroid and remainder of the soft tissues are unremarkable. Musculoskeletal: Mild degenerative changes of the cervical spine. No acute osseous pathology. Other: Irregular appearance of the skin along the right side of the nose, could be related to known c arcinoma and/or posttreatment changes. Chest: LUNGS/ PLEURA: No significant nodule or mass. No consolidation. Small left pleural effusion. No pneum othorax. There is somewhat prominent pleural fat noted especially laterally on the left. Eventration noted along the diaphragm bilaterally. AIRWAY: Patent and unremarkable. HEART: Heart is mildly enlarged. Moderate coronary artery calcifications and/or stent.. No pericardia l effusion. MEDIASTINUM: No gross evidence of adenopathy. A few nonenlarged nodes are seen. VASCULATURE: Pulmonary trunk is 2.6 cm, normal in size. Grossly preserved enhancement of the pulmona ry arteries in the limits of the exam. A few calcifications at the level of the aortic valve. Moderat e mixed calcified and soft plaque throughout the thoracic aorta without evidence of aneurysm or disse ction. There is mild narrowing by plaque of the proximal left subclavian artery. MUSCULOSKELETAL: Generalized osteopenia. Degenerative changes throughout the thoracic spine with over all exaggerated kyphosis which is greatest in the upper cervical region and appears exacerbated by mi ld anterior wedging of T2 and T6, which appear chronic. An area of sclerosis throughout the majority of the T3 vertebral body, small ring shaped sclerotic de nsity in the T5 vertebral body, small sclerotic density at the right body/pedicle junction of T6. Sma ll sclerotic density in the vertebral body of T7. Small rounded focus of sclerosis at the posterior i nferior margin of the T8 vertebral body. Small ring-shaped sclerotic density deep to the inferior end plate of T11. Semicircular 1.4 cm lesion with increased density peripherally abutting the superior en dplate L1 without cortical breakthrough. Punctate sclerotic focus in the L2 vertebral body. A rounded 1.4 cm lesion with increased density peripherally within the L3 vertebral body. No definite destruct siria lesion or acute fracture. There is a prominent deformity of the manubrium of the sternum, with re latively abrupt indentation/posterior directed curvature of its inferior aspect which may be healed s equela of remote traumatic injury. The body of the sternum bows slightly anteriorly but appears to be intact. There are small foci of sclerosis in lateral left rib 8 and lateral right rib 8. SOFT TISSUES/LYMPH NODES: No chest wall soft tissue mass or abnormally enlarged axillary nodes. UPPER ABDOMEN: Included upper abdominal aorta shows moderate mixed plaque with mild/moderate narrowin g of the lumen of the infrarenal aorta by what is likely ulcerated soft plaque or possibly dissection flap. Mild stenosis of the proximal celiac and superior mesenteric arteries. Mixed plaque in the pro ximal right renal artery appears to cause stenosis of about 75%. Mostly calcified plaque causes estim ated at least 50% stenosis of the proximal left renal artery. Cholelithiasis. A couple of small hypodense hepatic nodules, not fully characterized but judged most likely benign such as cysts. Spleen appears somewhat heterogenous, possibly from phase of contrast. T hickening of both adrenals without evidence of mass. Moderate sized hiatal hernia, with possible smal l epiphrenic diverticulum. Partially seen kidneys show prominent renal pelves bilaterally, greatest on the left. There are multi ple radiodense foci seen around the periphery of the renal sinus fat bilaterally, uncertain if these are calcifications or early contrast excretion or a combination. The largest one which most definitel y appears to be a calculus is 8.4 mm in the lower pole on the right. Tiny presumed cysts bilaterally. IMPRESSION: * No evidence of mass or adenopathy in the neck or chest to suggest metastatic disease. * Multiple sclerotic foci in the thoracic and visualized upper lumbar spine. The possibility of osse ous metastatic disease is considered (if so, probably not from basal cell); correlate with cancer his tory. Consider bone scan as clinically warranted. * Mild cardiomegaly. Moderate coronary artery calcifications and/or stent. * Small left pleural effusion. * Diffuse atherosclerotic disease of the aorta and branches, as detailed above. Most significant: * A 61% diameter stenosis of the proximal left ICA, and 25% stenosis of the proximal right ICA. * Mild/moderate narrowing of the lumen of the infrarenal aorta by what is likely ulcerated soft plaq ue or possibly dissection flap, partially seen. * Approximately 75% stenosis of the proximal right renal artery due to mixed plaque. * Estimated at least 50% stenosis of the proximal left renal artery due to calcified plaque. * Partially seen renal findings include renal calculi and possible bilateral hydronephrosis. RECOMMENDATIONS: * CT angiogram abdomen and pelvis could further assess both the above arterial and renal findings. * Alternatively, CT urogram may be of benefit for dedicated evaluation of the kidneys/urinary system . This would also evaluate for possibility of metastatic disease.
== END | disposition home or self-care (01) ==
LOC: RADCTMAIN 08:04
PROVIDERS: ATTEND Internal Medicine
DX: C44.311 Basal cell carcinoma of skin of nose (principal); I51.7 Cardiomegaly; J90 Pleural effusion, not elsewhere classified; I70.0 Atherosclerosis of aorta; I65.23 Occlusion and stenosis of bilateral carotid arteries; N20.0 Calculus of kidney
CPT/HCPCS: 82565; 84520; 70491; 71260; 36415; Q9967

== ENCOUNTER → 2024-01-08 | Outpatient (CLI) | payer MEDICARE, OTHER ==
--- NOTE | 2024-01-10 22:07 | PE ---
EXAMINATION TYPE: PET CT fusion skull to thigh DATE OF EXAM: 01/08/2024 CLINICAL INDICATION:Male, 78 years old with history of I20.89 OTHER FORMS OF ANGINA PECTORIS; basal c ell carcinoma of the nose. TECHNIQUE: Following the intravenous administration of 4.8 mCi of Ga-68 Illuccix (PSMA), whole body images are performed from the skull base to the midthigh. Images are reviewed on the computer in th e coronal, axial, and sagittal planes. Reconstructed rotating images are created on independent work station and reviewed on the computer. A non-contrast CT is performed in conjunction with the PET sc an. CT DLP: 521 mGycm, Automated exposure control for dose reduction was used. COMPARISON: CT 10/28/2023, PET/CT 11/11/2023, FINDINGS: Mediastinal SUV mean is 1.0 . Hepatic parenchyma SUV mean is 2.8. SKULL BASE AND NECK: No suspicious radiotracer activity. CHEST, MEDIASTINUM, AND HILAR REGION: No suspicious radiotracer activity. ABDOMEN AND PELVIS: * Abnormal radiotracer uptake within a external iliac lymph node max SUV 5.2 and on the right max ANNE V 3.2. Measuring 7 mm on the right and 5 mm on the left. * Abnormal uptake within the common iliac chain lymph nodes max SUV 2.9 on the right and 3.1 on the left. Scattered hilar lymph nodes with mild activity noted along the retroperitoneum. * Diffuse uptake within the prostate gland max SUV 25.6. MUSCULOSKELETAL STRUCTURES: Scattered sclerotic lesions are seen throughout the osseous structures. Some of these lesions have ab normal uptake. Examples include: * Abnormal radiotracer uptake within the T3 vertebrae with suspected underlying compression fracture with history 12.6. * L3 vertebrae max 13.8. * L1 vertebrae max SUV 6.9. * Right iliac bone max SUV 4.4. * Right acetabulum max SUV 7.5. OTHER CT: Paranasal sinus disease within the right maxillary sinus. Atherosclerosis of the arterial v asculature including the coronary arteries. The heart is mildly enlarged for size. Cholelithiasis. Bi lateral renal calculi which are nonobstructing. Scattered colonic diverticula. Stout catheter in plac e. 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
== END | disposition home or self-care (01) ==
LOC: RADPETMAIN 09:10
PROVIDERS: ATTEND Internal Medicine
DX: C79.2 Secondary malignant neoplasm of skin (principal); C61 Malignant neoplasm of prostate
CPT/HCPCS: 78815; A9596

== ENCOUNTER → 2024-02-12 | Outpatient (CLI) | payer MEDICARE, OTHER ==
[2024-02-12 14:22] VITALS: BP 137/75; PULSE 80; RESP 16; TEMP 98
[2024-02-12] MEDS: SODIUM CHLORIDE 0.9% 500 ML 500 ML in EMPTY BAG 1 BAG IV PRN (14:22)
[2024-02-12] MEDS: ZOLEDRONIC ACID 4 MG in SODIUM CHLORIDE 0.9% 100 ML IV NR (14:22)
== END ==
LOC: PROCWHC3 13:58
PROVIDERS: ATTEND Internal Medicine Hematology & Oncology
DX: C79.51 Secondary malignant neoplasm of bone (principal)
CPT/HCPCS: 96365; J3489

== ENCOUNTER → 2024-06-01 | Outpatient (CLI) | payer MEDICARE, OTHER ==
--- NOTE | 2024-06-01 13:31 | FL ---
Exam Date: 06/01/2024 11:41 AM. Modified barium swallow for dysphagia. Consistencies administered: Various consistency of barium. Fluoro time: 1 MIN 5 SEC FL, NO DAP DOSE No images were sent to PACS. Please see speech pathology report. DAP: 1 MIN 5 SEC FL, NO DAP DOSE mGym2 Gycm2
== END | disposition home or self-care (01) ==
LOC: RADFLMAIN 10:40
PROVIDERS: ATTEND Family Medicine
DX: R13.10 Dysphagia, unspecified (principal)
CPT/HCPCS: 74230

== ENCOUNTER → 2024-06-06 | Outpatient (CLI) | payer MEDICARE, OTHER | END | disposition home or self-care (01) | LOC: LABPRL 23:00 | PROVIDERS: ATTEND Family Medicine | DX: N40.0 Benign prostatic hyperplasia without lower urinary tract symptoms (principal) | CPT/HCPCS: 81003; 87086 ==

== ENCOUNTER → 2025-02-07 | Outpatient (CLI) | payer MEDICARE, OTHER ==
--- NOTE | 2025-02-07 14:17 | CT ---
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 CONTRAST: CT scan of the chest, abdomen and pelvis is performed without Oral Contrast and with IV Contrast, pat ient injected with 100 ml mL of Isovue 300. FINDINGS: CT chest: There is no suspicious lung mass or nodule. There is no abnormal airspace/consolidative density or abnormal interstitial density. There is no pleural effusion, pleural thickening or pneumothorax. The great vessels and chest are normal there is no mediastinal, hilar or axillary adenopathy. There are multiple sclerotic densities scattered throughout the thoracic spine and ribs the largest o f which is in the T3 vertebral segment consistent with metastatic disease. There are no pathological fractures. CT abdomen and pelvis: There is a small hiatal hernia. There are 2 small gallstones but no gallbladder wall thickening, distention or pericholecystic fluid. There is no biliary ductal dilatation. There is no focal mass or organomegaly involving the liver, pancreas, spleen or adrenal glands. There is a 9 to 10 mm hypodensity within the left lobe of liver most likely representing a cyst. There is moderate chronic right hydronephrosis and hydroureter and marked chronic left hydronephrosis and hydroureter. There is marked thickening of the urinary bladder with multiple intramural cysts. T here is a small diverticulum extending from the superior aspect of urinary bladder. The possibility o f obstructing cysts or masses in the UVJs are not excluded and direct inspection may be indicated. Th ere is a 9 mm nonobstructing right renal calcification and there are 2 nonobstructing left renal calc ifications one measuring approximately 6.6 mm and the other measuring approximately 5.5 mm. The bowel loops are normal in caliber and there is no dilatation or obstruction. No inflammatory tess nges identified in the bowel wall and mesentery. There is no free intracranial air or fluid. There is moderate prostatic hypertrophy There is no free fluid within the pelvis. There are multiple sclerotic lesions scattered throughout the pelvis and lumbar spine consistent with metastatic disease. There are no pathological fractures. IMPRESSION: 1. [id number] chronic right hydronephrosis and hydroureter and marked chronic left hydronephros is and hydroureter. Nonobstructing bilateral renal calcifications. 2. Marked urinary bladder wall thickening with multiple intramural cysts and possible intramural cyst s or masses in the region of the UVJs. Direct inspection may be indicated to rule out obstructing UVJ masses. 3. Moderate prostatic hypertrophy. 4. Cholelithiasis. 5. Small hiatal hernia. 6. 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 There are no pa thological fractures. [facility], Workstation: [email or web address], 02/07/2025 2:14 PM
== END | disposition home or self-care (01) ==
LOC: RADCTMAIN 11:50
PROVIDERS: ATTEND Internal Medicine
DX: C44.311 Basal cell carcinoma of skin of nose (principal); N42.9 Disorder of prostate, unspecified; I10 Essential (primary) hypertension; E78.5 Hyperlipidemia, unspecified; N40.0 Benign prostatic hyperplasia without lower urinary tract symptoms; K80.20 Calculus of gallbladder without cholecystitis without obstruction; K44.9 Diaphragmatic hernia without obstruction or gangrene; C79.51 Secondary malignant neoplasm of bone; N13.30 Unspecified hydronephrosis; N32.89 Other specified disorders of bladder; N28.1 Cyst of kidney, acquired
CPT/HCPCS: 71260; 74177; 36415; Q9967

== ENCOUNTER → 2025-05-29 | Outpatient (CLI) | payer MEDICARE, OTHER ==
[2025-05-29 12:40] LABS: African American GFR (CKD) 89 (>60 ml/min/1.73 sqM); Blood Urea Nitrogen 43 mg/dL (9-20); Non-African American GFR(CKD) 77 (>60 ml/min/1.73 sqM)
--- NOTE | 2025-05-29 15:46 | CT ---
EXAMINATION TYPE: CT ChestAbdPelvis w con CT DLP: 722.6 mGycm, Automated exposure control for dose reduction was used. DATE OF EXAM: 05/29/2025 1:23 PM COMPARISON: CT chest abdomen pelvis 02/07/2025 CLINICAL INDICATION:Male, 79 years old with history of C61.0 PROSTATE CANCER; [facility], f/u prostate ca Technique: CT ChestAbdPelvis w con; Multiple axial images were obtained. Two-dimensional coronal and sagittal reconstructions were obtained. Contrast used:100 mL of Isovue 300 with IV Contrast, Oral contrast used: with Oral Contrast Findings: CHEST: LUNGS/ PLEURA: No focal consolidation, pneumothorax or pleural effusion. No suspicious pulmonary mass . AIRWAY: Patent and unremarkable. HEART: Size within normal limits.Moderate coronary artery atherosclerosis. MEDIASTINUM: No gross evidence of adenopathy. VASCULATURE: No aortic aneurysm. MUSCULOSKELETAL: Similar sclerotic lesions are noted in T3 and T8 vertebral bodies. No acute osseous abnormalities. SOFT TISSUES/LYMPH NODES: Unremarkable. LOWER NECK: No significant findings. ABDOMEN: ABDOMEN LIVER: Subcentimeter hypodense focus noted in the right hepatic lobe too small to characterize. Liver morphology is otherwise unremarkable. GALLBLADDER AND BILE DUCTS: Calcified gallstones. No biliary ductal dilatation. PANCREAS: Unremarkable. SPLEEN: Unremarkable. ADRENAL GLANDS: Unremarkable. KIDNEYS AND URETERS: There is redemonstrated moderate to severe bilateral hydroureteronephrosis left greater than right with slight progression of severity involving the right side when compared to prio r. There are multiple subcentimeter renal calculi bilaterally with the largest seen on the left parish uring up to 4 mm. PELVIS BLADDER: Redemonstrated circumferential wall thickening of the urinary bladder with similar intramura l cystic changes and diverticula. No radiodense calculi noted within the lumen of the urinary bladder . REPRODUCTIVE: Mild enlargement of the prostate is noted. ABDOMEN & PELVIS STOMACH AND BOWEL: Stomach is grossly unremarkable. Small bowel is of normal caliber. No evidence of bowel obstruction. PERITONEUM: No evidence of pneumoperitoneum or free fluid. VASCULATURE: No evidence of aortic aneurysm. Mixed calcified and noncalcified atherosclerotic disease of the abdominal aorta and its branches. MUSCULOSKELETAL: No acute osseous abnormalities. Redemonstrated sclerotic lesions involving the bilat eral iliac bones. Similar appearance of a large sclerotic lesion in the L3 vertebral body. LYMPH NODES: No gross evidence for lymphadenopathy. SOFT TISSUE/ABDOMINAL WALL: Unremarkable IMPRESSION: 1. Redemonstrated multiple sclerotic lesions involving the thoracolumbar spine and bony pelvis overal l similar in appearance to the prior exam consistent with blastic osseous metastatic disease. 2. There is mild interval increase in the right-sided hydroureteronephrosis with similar moderate to severe left hydroureteronephrosis. 3. Sub-5 mm bilateral renal calculi. 4. Similar urinary bladder intramural wall cysts and diverticula with mild circumferential wall thick ening. 5. Cholelithiasis. [facility], , 05/29/2025 3:44 PM
== END | disposition home or self-care (01) ==
LOC: RADCTMAIN 11:41
PROVIDERS: ATTEND Internal Medicine
DX: C61 Malignant neoplasm of prostate (principal); C44.311 Basal cell carcinoma of skin of nose; I10 Essential (primary) hypertension; N42.9 Disorder of prostate, unspecified; E78.5 Hyperlipidemia, unspecified; K80.20 Calculus of gallbladder without cholecystitis without obstruction; N13.2 Hydronephrosis with renal and ureteral calculous obstruction; N32.89 Other specified disorders of bladder
CPT/HCPCS: 82565; 84520; 71260; 74177; 36415; Q9967